=== PATIENT | male | born 1945 | race Caucasian/White ===

== ENCOUNTER 2019-06-13 13:04 | Observation (INO) | payer OTHER, SELFPAY ==
[2019-06-13] VITALS (13 sets, daily range): BP systolic 137–143; BP diastolic 68–74; PULSE 78–102; RESP 20–28; TEMP 36.6–37.1; O2SAT 73–96; BMI 31.1
--- NOTE | ~2019-06-13 | XR_ITS ---
EXAMINATION: XR chest 1V portable EXAM DATE: 06/13/2019 13:42 INDICATION: Dyspnea. TECHNIQUE: Portable AP frontal chest x-ray was obtained. Comparison is made to prior examination from 04/15/2019. FINDINGS: The lungs are clear. There are no pleural effusions. The cardiomediastinal silhouette is within normal limits. There is no pneumothorax suspected. The bones and soft tissues are unremarkab le. There is no significant interval change. IMPRESSION: No acute cardiopulmonary findings. Reviewed, dictated and finalized at location A. EDICAL PHOTOGRAPHER
--- NOTE | 2019-06-13 13:16 | ECG_ITS ---
Measurements Intervals [place] Rate: 93 P: 75 [place]: 152 QRS: -25 QRSD: 101 T: 55 QT: 337 QTc: 421 Interpretive Statements SINUS RHYTHM DELAYED PRECORDIAL R/S TRANSITION BASELINE WANDER- V4-V5 BORDERLINE ECG Electronically Signed On 06-13-2019 16:58:44 PAID SEARCH MARKETING STRATEGIST by Juan Donald D.O.
[2019-06-13] MEDS: IPRATROPIUM 0.5 MG/ALBUTEROL SULFATE 2.5 MG AMPUL.NEB 3 ML (13:26)
[2019-06-13] MEDS: methylPREDNISolone SOD SUCC 125 MG VIAL IV PUSH (13:38)
[2019-06-13 13:48] LABS: Device NASAL CANNULA; Modified Allen's Test Pass; Site Drawn RIGHT RADIAL
[2019-06-13 13:51] LABS: Basophils Absolute Auto 0.04 K/mm3 (0.00-0.10); Basophils Percent Auto 0.3 % (0.0-1.0); Eosinophils Absolute Auto 0.02 K/mm3 (0.02-0.50); Eosinophils Percent Auto 0.2 % (1.0-6.0); Hematocrit 41.4 % (37.0-46.0); Hemoglobin 12.4 g/dL (12.4-15.3); Immature Granulocyte Absolute 0.11 K/mm3 (0.00-0.00); Immature Granulocyte Percent A 0.8 % (0.0-0.0); Lymphocytes Absolute Auto 0.72 K/mm3 (1.10-4.50); Lymphocytes Percent Auto 5.5 % (18.0-42.0); Mean Corpuscular Hemoglobin 29.5 pg (27.0-31.0); Mean Corpuscular Volume 98.3 fL (78.0-102.0); Mean Platelet Volume 9.7 fl (8.7-11.0); Monocytes Percent Auto 3.8 % (2.0-11.0); Neutrophils Absolute Auto 11.6 K/mm3 (1.7-7.2); Neutrophils Percent Auto 89.4 % (50.0-70.0); Platelet Count Result 295 K/mm3 (150-420); Red Blood Count 4.21 M/mm3 (4.70-6.10); Red Cell Distribution Width 13.5 % (11.6-14.4)
[2019-06-13 14:06] LABS: D Dimer 0.35 mg/L (0.19-0.50); INR 1.1; Partial Thromboplastin Time 28.7 SEC (22.3-31.6); Prothrombin Time 10.9 Seconds (9.64-11.0)
[2019-06-13 14:07] LABS: Alanine Aminotransferase 15 U/L (16-63); Albumin Level 3.2 g/dL (3.4-5.0); Alkaline Phosphatase 86 U/L (46-116); Anion Gap 8.6 mmol/L (7-16); Aspartate Amino Transferase 13 U/L (15-37); Bilirubin,Total 0.4 mg/dL (0.00-1.00); Blood Urea Nitrogen 25 mg/dL (7-18); Calcium 9.8 mg/dL (8.5-10.1); Carbon Dioxide 39 mmol/L (21-32); Chloride 99 mmol/L (98-108); Estimated Glomerular Filt Rate 49; Glucose 226 mg/dL (70-99); Magnesium 1.4 mg/dL (1.8-2.4); Osmolality Calculated 305 mOsm/kg (285-295); Potassium 4.6 mmol/L (3.5-5.1); Sodium 142 mmol/L (136-145); Total Protein 7.6 g/dL (6.4-8.2); Troponin I < 0.02 ng/mL (0.00-0.056)
[2019-06-13 14:12] LABS: BNP 96 pg/mL (0-100)
[2019-06-13 14:21] LABS: Influenza Control Valid (Valid)
[2019-06-13] MEDS: IPRATROPIUM 0.5 MG/ALBUTEROL SULFATE 2.5 MG AMPUL.NEB 3 ML INHALATION ×2 (14:30→17:55)
--- NOTE | 2019-06-13 14:32 | ED.SOB ---
HPI - SOB/Dyspnea General Chief Complaint: Shortness of Breath/Dyspnea Stated Complaint: sob Source: patient and family Limitations: no limitations and physical limitation History of Present Illness HPI Narrative: 73-year-old patient presents with cough congestion shortness of breath as has a known history of COPD recent COPD exacerbation was hospitalized at [place] in early April. Continues to be a smoker although he says he has cut down, over the last couple of days has been getting increasingly short of breath and today having trouble walking any short distances without being short of breath. Has a cough that is nonproductive with audible wheezing currently no fever or chills no chest tightness no abdominal pain no nausea vomiting. MD elicited complaint: shortness of breath and cough Pertinent past history: COPD Onset (ago): day(s) Context: recent illness and anxiety Timing: progressively worsening Severity: moderate Exacerbating factors: exertion Relieving factors: oxygen and bronchodilators Known history of: COPD Associated symptoms: cough and wheezing Related Data Home Medications Medication Instructions Recorded Confirmed albuterol sulfate 0.63 mg INHALATION Q4H PRN 04/10/19 06/13/19 aspirin [Aspirin Low Dose] 81 mg PO DAILY 04/10/19 06/13/19 buspirone 15 mg PO BID 04/10/19 06/13/19 cholecalciferol (vitamin D3) 1,000 unit PO DAILY 04/10/19 06/13/19 gabapentin 100 mg PO TID 04/10/19 06/13/19 insulin aspart U-100 [Novolog 30 unit SUBCUT DAILY 04/10/19 06/13/19 Flexpen U-100 Insulin] magnesium oxide 400 mg PO BID 04/10/19 06/13/19 metoprolol tartrate 25 mg PO BID 04/10/19 06/13/19 montelukast 10 mg PO DAILY 04/10/19 06/13/19 simvastatin 10 mg PO HS 04/10/19 06/13/19 theophylline 400 mg PO DAILY 04/10/19 06/13/19 verapamil 360 mg PO DAILY 04/10/19 06/13/19 escitalopram oxalate [Lexapro] 20 mg PO DAILY 04/14/19 06/13/19 Allergies Allergy/AdvReac Type Severity Reaction Status Date / Time No Known Allergies Allergy Unverified 06/02/16 00:54 Review of Systems Review of Systems: All systems reviewed & are unremarkable except as noted in HPI and below PMFSH Past Medical History Medical History COPD (chronic obstructive pulmonary disease) Diabetes mellitus Diastolic heart failure Hypertension Surgical History Surgical History Clavicle fracture Family History Family History Mother Liver cancer Father Empyema Social History Social History Smoking packs per day: 0.5 Smoking cigarettes per day: 10.0 Years smoked: 60 Smoking pack-years: 30.00 Smoking status: Current every day smoker Tobacco type: cigarettes Alcohol intake: current Drinks per week: 1 Substance use: never Last use: RARE ON ALCOHOL INTAKE @ 1 MONTH Gender identity (if verbalized by the patient): Male Spiritual care concerns: No Agree to blood products: Yes Exam Const: General: no acute distress HENMT: Head: normal to inspection Eyes: Conjunctivae: conjunctivae normal Pupils: Equal, round and reactive pupils present Neck: Neck: normal visual inspection and no lymphadenopathy Chest: Chest palpation & inspection: normal inspection of the chest Resp: Effort & Inspection: tachypneic Auscultation: rhonchi, wheezes and diminished lung sounds Cardio: Rate: regular rate Rhythm: regular rhythm GI: GI Palp: Yes Soft to palpation Percussion: Yes normal to percussion : Testes: Testes normal Back/Spine/Pelvis: Back: no CVA tenderness Skin: General skin exam: normal color Rashes: no rashes Neuro: General: patient oriented x3, moves all extremities, no meningeal signs and no focal motor deficits Course Vital Signs Vital signs: Vital Signs Pulse Rate 94 06/13/19 13:25
[2019-06-13 14:47] LABS: Base Excess ABG 10.1 mEq/l (+/-2.0); HCO3 ABG 38.9 mEq/l (22.0-26.0); Oxygen Saturation ABG 91.4 % (95.0-100.0); Oxyhemoglobin 90.4 % THb (90.0-100.0); PO2 ABG 70.2 mmHg (80.0-100.0); Total Hemoglobin 10.2 g/dL (12.0-18.0)
[2019-06-13 14:50] LABS: PCO2 ABG 80.8 mmHg (35.0-45.0)
--- NOTE | 2019-06-13 16:45 | PC.NURSE ---
1520 lungs are diminished and have wheezes through out. here from er with c/o sob. claims he smokes daily at least 4+cigarettes daily and over 50+ yr history and has no intentions of quitting now. uses o2 at home.
[2019-06-13] MEDS: METOPROLOL TARTRATE 25 MG TABLET PO (17:18)
[2019-06-13] MEDS: MAGNESIUM OXIDE 400 MG TABLET PO (17:18)
[2019-06-13] MEDS: GABAPENTIN 100 MG CAPSULE PO (17:18)
[2019-06-13] MEDS: busPIRone HCL 5 MG TABLET 15 MG PO (17:18)
[2019-06-13] MEDS: methylPREDNISolone SOD SUCC 40 MG VIAL IV PUSH ×2 (17:55→20:28)
[2019-06-13] MEDS: SIMVASTATIN 10 MG TABLET PO (20:28)
[2019-06-13 20:40] LABS: Glucose Point of Care 240 (65-105)
[2019-06-14] VITALS (9 sets, daily range): BP systolic 132–138; BP diastolic 67–71; PULSE 80–96; RESP 18–24; TEMP 36.2–36.7; O2SAT 87–93
[2019-06-14] MEDS: IPRATROPIUM 0.5 MG/ALBUTEROL SULFATE 2.5 MG AMPUL.NEB 3 ML INHALATION ×2 (00:44→05:41)
[2019-06-14 08:27] LABS: Basophils Absolute Auto 0.01 K/mm3 (0.00-0.10); Basophils Percent Auto 0.1 % (0.0-1.0); Hematocrit 41.4 % (37.0-46.0); Hemoglobin 12.4 g/dL (12.4-15.3); Lymphocytes Absolute Auto 0.45 K/mm3 (1.10-4.50); Lymphocytes Percent Auto 4.7 % (18.0-42.0); Mean Corpuscular Volume 96.7 fL (78.0-102.0); Mean Platelet Volume 9.5 fl (8.7-11.0); Monocytes Percent Auto 2.1 % (2.0-11.0); Neutrophils Absolute Auto 8.9 K/mm3 (1.7-7.2); Neutrophils Percent Auto 92.1 % (50.0-70.0); Platelet Count Result 302 K/mm3 (150-420); Red Blood Count 4.28 M/mm3 (4.70-6.10); Red Cell Distribution Width 13.5 % (11.6-14.4); White Blood Count 9.7 K/mm3 (4.8-10.8)
[2019-06-14 08:44] LABS: Alanine Aminotransferase 14 U/L (16-63); Albumin Level 3.3 g/dL (3.4-5.0); Alkaline Phosphatase 79 U/L (46-116); Anion Gap 6.5 mmol/L (7-16); Aspartate Amino Transferase 12 U/L (15-37); Bilirubin,Total 0.3 mg/dL (0.00-1.00); Blood Urea Nitrogen 27 mg/dL (7-18); Calcium 9.8 mg/dL (8.5-10.1); Carbon Dioxide 41 mmol/L (21-32); Chloride 99 mmol/L (98-108); Estimated CRCL calculation 57 ml/min; Estimated Glomerular Filt Rate 60; Glucose 179 mg/dL (70-99); Osmolality Calculated 303 mOsm/kg (285-295); Potassium 4.5 mmol/L (3.5-5.1); Sodium 142 mmol/L (136-145); Total Protein 7.6 g/dL (6.4-8.2)
[2019-06-14 08:51] LABS: Glucose Point of Care 167 (65-105)
[2019-06-14 08:52] LABS: Glucose Point of Care 164 (65-105)
[2019-06-14] MEDS: methylPREDNISolone SOD SUCC 40 MG VIAL IV PUSH (08:56)
[2019-06-14] MEDS: MAGNESIUM OXIDE 400 MG TABLET PO (08:56)
[2019-06-14] MEDS: GABAPENTIN 100 MG CAPSULE PO (08:56)
[2019-06-14] MEDS: MONTELUKAST SODIUM 10 MG TABLET PO (08:57)
[2019-06-14] MEDS: ESCITALOPRAM OXALATE 10 MG TABLET 20 MG PO (08:57)
[2019-06-14] MEDS: VERAPAMIL HCL 180 MG TABLET ER 360 MG PO (08:57)
[2019-06-14] MEDS: METOPROLOL TARTRATE 25 MG TABLET PO (08:58)
[2019-06-14] MEDS: CHOLECALCIFEROL 1,000 UNIT TABLET 1000 UNITS PO (08:58)
[2019-06-14] MEDS: busPIRone HCL 5 MG TABLET 15 MG PO (08:58)
[2019-06-14] MEDS: ASPIRIN 81 MG ENTERIC TABLET PO (08:58)
--- NOTE | 2019-06-14 10:22 | PC.NURSE ---
Telemetry discontinued. IV discontinued. Patient getting dressed, awaiting discharge. Independent in room
--- NOTE | 2019-06-14 12:05 | PM.IMHP ---
H&P: HPI History of Present Illness Chief complaint: sob <UBALDO Antunez - Last Filed: 06/14/19 12:22> Narrative: Mike Dumont is a 73 year old male who presented to the ED with shortness of breath, dyspnea, congestion . Patient has a past medical history of COPD diabetes heart, failure diastolic , and tobacco abuse he also uses continuous home oxygen. He is being admitted for COPD exacerbation. according to patient he has been experiencing a persistent nonproductive cough with wheezing that has not improved with his nebulizer treatment for a couple of days. He says his shortness of breath worsens with activity. His vital signs are 36.5, 96, 24, 93% L nasal cannula, 132/70 . while in the ED a chest x-ray was completed and found unremarkable, blood cultures are pending, EKG normal sinus rhythm. Patient will be discharged home today because his condition has improved with steroids ,antibiotics and his breathing treatments will continue. Patient able to tolerate all meals , slept well and ambulate at baseline. Patient denies SOB, CP, palpitation, extremity numbness, lightheadness, dizziness, constipation, diarrhea, or chills or fever. Patient agree that they are ready for discharge and discharge plan. <UBALDO Antunez - Last Filed: 06/14/19 12:22> Review of Systems Constitutional: Constitutional: Denies difficulty sleeping, Denies fatigue, Denies fever(s) and Denies headache(s) <UBALDO Antunez - Last Filed: 06/14/19 12:22> ENT: Denies dysphagia, Denies vertigo, Denies dizziness and Denies headache(s) <UBALDO Antunez - Last Filed: 06/14/19 12:22> Cardiovascular: Cardiovascular: Reports no additional cardiovascular complaints, Denies chest pain at rest and Denies chest pain with activity <UBALDO Antunez - Last Filed: 06/14/19 12:22> Gastrointestinal: Gastrointestinal: Reports no additional gastrointestinal complaints <UBALDO Antunez - Last Filed: 06/14/19 12:22> Musculoskeletal: Musculoskeletal: Reports no additional musculoskeletal complaints <UBALDO Antunez - Last Filed: 06/14/19 12:22> Neurologic: Denies Abnormal speech present, Denies confusion, Denies vertigo, Denies dizziness and Denies syncope <UBALDO Antunez - Last Filed: 06/14/19 12:22> [facility] Past Medical History Medical History: Medical History (Updated 06/14/19 @ 12:15 by UBALDO Antunez) COPD (chronic obstructive pulmonary disease) Diabetes mellitus Diastolic heart failure Hypertension Tobacco dependence <UBALDO Antunez - Last Filed: 06/14/19 12:22> Surgical History Surgical History: Surgical History Clavicle fracture <UBALDO Antunez - Last Filed: 06/14/19 12:22> Family History Family History: Family History Mother Liver cancer Father Empyema <UBALDO Antunez - Last Filed: 06/14/19 12:22> Social History Social History: Social History Smoking packs per day: 1 Smoking cigarettes per day: 20.0 Years smoked: 50 Smoking pack-years: 50.00 Smoking status: Current every day smoker Tobacco type: cigarettes Second hand tobacco smoke exposure: Yes Alcohol intake: current Drinks per week: 1 Substance use: never Last use: RARE ON ALCOHOL INTAKE @ 1 MONTH Gender identity (if verbalized by the patient): Male Spiritual care concerns: No Agree to blood products: No <UBALDO Antunez - Last Filed: 06/14/19 12:22> Meds Home Medications and Allergies Home medications: Home Medications Medication Instructions Recorded Confirmed Type albuterol sulfate 0.63 mg INHALATION Q4H PRN 04/10/19 06/13/19 History aspirin [Aspirin Low Dose] 81 mg PO DAILY 04/10/19 06/13/19 History buspirone 15 mg PO BID 04/10/19
--- NOTE | 2019-06-14 12:22 | PM.DS ---
DS: Diagnosis Discharge Diagnosis (1) Diabetes mellitus: Qualifiers: Diabetes mellitus complication status: with hyperglycemia Diabetes mellitus chcf insulin use: with chcf use Diabetes mellitus type: type 2 Qualified Code(s): E11.65 - Type 2 diabetes mellitus with hyperglycemia; Z79.4 - intermediate (current) use of insulin <UBALDO Antunez - Last Filed: 06/14/19 12:23> Code(s): E11.9 - Type 2 diabetes mellitus without complications <UBALDO Antunez - Last Filed: 06/14/19 12:23> Status: Acute <UBALDO Antunez - Last Filed: 06/14/19 12:23> Assessment and Plan: - blood sugars less than 300, controlled - continue home insulin <UBALDO Antunez - Last Filed: 06/14/19 12:23> (2) Diastolic heart failure: Qualifiers: Heart failure chronicity: chronic Qualified Code(s): I50.32 - Chronic diastolic (congestive) heart failure <UBALDO Antunez - Last Filed: 06/14/19 12:23> Code(s): I50.30 - Unspecified diastolic (congestive) heart failure <UBALDO Antunez - Last Filed: 06/14/19 12:23> Status: Acute <UBALDO Antunez - Last Filed: 06/14/19 12:23> Assessment and Plan: - compensated - BNP within normal limits - patient will follow-up with PCP <UBALDO Antunez - Last Filed: 06/14/19 12:23> (3) COPD exacerbation: Code(s): J44.1 - Chronic obstructive pulmonary disease with (acute) exacerbation <UBALDO Antunez - Last Filed: 06/14/19 12:23> Status: Acute <UBALDO Antunez - Last Filed: 06/14/19 12:23> Assessment and Plan: stable continue supplement oxygen - patient educated on smoking cessation - patient will discharge home with steroids, antibiotics and continue his nebulizer treatments at home <UBALDO Antunez - Last Filed: 06/14/19 12:23> (4) Hypertension: Qualifiers: Hypertension type: essential hypertension Qualified Code(s): I10 - Essential (primary) hypertension <JOHN AntunezVelia - Last Filed: 06/14/19 12:23> Code(s): I10 - Essential (primary) hypertension <Xavi Blackburn JOHNVelia - Last Filed: 06/14/19 12:23> Status: Acute <UBALDO Antunez - Last Filed: 06/14/19 12:23> Assessment and Plan: blood pressure 132/71 stable on discharge - continue home antihypertensive tension medication - follow-up with PCP <Xavi Brand Alexey JAKETyra - Last Filed: 06/14/19 12:23> (5) Tobacco dependence: Code(s): F17.200 - Nicotine dependence, unspecified, uncomplicated <Xavi Blackburn UBALDO - Last Filed: 06/14/19 12:23> Status: Acute <UBALDO Antunez - Last Filed: 06/14/19 12:23> Assessment and Plan: patient educated on smoking cessation - encourage should use the nicotine patches at home <Xavi Blackburn MEDICAL DEVICE-C - Last Filed: 06/14/19 12:23> DS: Summary Hospital Course Hospital Course: Mike Dumont is a 73 year old male who presented to the ED with shortness of breath, dyspnea, congestion . Patient has a past medical history of COPD diabetes heart, failure diastolic , and tobacco abuse he also uses continuous home oxygen. He is being admitted for COPD exacerbation. according to patient he has been experiencing a persistent nonproductive cough with wheezing that has not improved with his nebulizer treatment for a couple of days. He says his shortness of breath worsens with activity. His vital signs are 36.5, 96, 24, 93% L nasal cannula, 132/70 . while in the ED a chest x-ray was completed and found unremarkable, blood cultures are pending, EKG normal sinus rhythm. Patient will be discharged home today because his condition has improved with steroids ,antibiotics and his breathing treatments will continue. Patient able to tolerate all meals , slept well and ambulate at baseline. Patient
--- NOTE | 2019-06-15 08:41 | PCCCNOTE ---
Spoke with Quentin Rain at 0841 regarding patient's discharge on 06/14/2019. No additional information needed
== END 2019-06-14 11:30 | disposition home or self-care (01) ==
LOC: CHSED 14:38 → CHS2ND 14:52
PROVIDERS: Admitting Provider Emergency Medicine; Emergency Provider Emergency Medicine; PCP Internal Medicine; Visit Provider Emergency Medicine
DX: J44.1 Chronic obstructive pulmonary disease with (acute) exacerbation (principal); I11.0 Hypertensive heart disease with heart failure; I50.32 Chronic diastolic (congestive) heart failure; E11.65 Type 2 diabetes mellitus with hyperglycemia; F17.210 Nicotine dependence, cigarettes, uncomplicated; Z99.81 Dependence on supplemental oxygen
CPT/HCPCS: 36415; 36600; 71045; 80053; 82805; 83735; 83880; 84484; 85025; 85380; 85610; 85730; 87040; 87804; 93005; 94640; 96365; 96374; 96375; 96376; 99285; A9270; G0378; J0696; J1815; J2920; J2930

== ENCOUNTER 2019-07-14 22:24 | Inpatient (IN) | payer OTHER, SELFPAY ==
[2019-07-14] VITALS (8 sets, daily range): BP systolic 146; BP diastolic 65; PULSE 81–120; RESP 26–32; TEMP 37.1; O2SAT 80–90
--- NOTE | ~2019-07-14 | XR_ITS ---
EXAMINATION: XR chest 1V portable EXAM DATE: 07/14/2019 23:30 INDICATION: Dyspnea. TECHNIQUE: Portable AP frontal chest x-ray was obtained. Comparison is made to prior examination from 06/13/2019. FINDINGS: Interval development of moderate amount of left-sided and right basilar indistinct reticula tion, airspace disease, probably pneumonia and/or edema. Borderline heart size. No pneumothorax or si zable pleural effusion. There are mild bony degenerative changes. IMPRESSION: Development of moderate left greater than right edema and/or pneumonia. Reviewed, dictated and finalized at location A. IREMENTS ENGINEER IMPRESSION: Development of moderate left greater than right edema and/or pneumo naida.
--- NOTE | ~2019-07-14 | XR_ITS ---
XR chest ET placement 07/15/2019 08:41 Indication: Endotracheal tube placement. Procedure: AP portable chest Comparison: Comparison to multiple prior studies sequentially, with oldest reviewed study dated 10/2018. Findings: Cardiomegaly. Improving bilateral airspace disease. There is a layering left pleural effusi on. Endotracheal tube tip 4.8 cm above the acosta. Right clavicle distally is not identified, likely surgically absent. There are surgical changes overlying the right shoulder. Impression: 1: Improving bilateral airspace disease, left greater than right, most likely edema versus pneumonia. 2: Small left effusion. Reviewed, dictated and finalized at location A. OPEDIC PODIATRIST Impression: 1: Improving bilateral airspace disease, left greater than right, most likely e rochelle versus pneumonia. 2: Small left effusion.
--- NOTE | 2019-07-14 22:37 | ECG_ITS ---
Measurements Intervals [place] Rate: 115 P: 63 ID: [id number] QRS: -32 QRSD: 113 T: 85 QT: 316 QTc: 438 Interpretive Statements SINUS TACHYCARDIA LEFT AXIS DEVIATION INTRAVENTRICULAR CONDUCTION DELAY LEFT VENTRICULAR HYPERTROPHY AND ST-T CHANGE BORDERLINE R WAVE PROGRESSION, ANTERIOR LEADS ABNORMAL ECG Electronically Signed On 07-15-2019 7:35:12 PRODUCTION PAINTER by Juan Donald D.O.
[2019-07-14] MEDS: methylPREDNISolone SOD SUCC 125 MG VIAL IV PUSH (22:43)
[2019-07-14] MEDS: ALBUTEROL SULFATE NEB 1.25 MG/3 ML INH INHALATION ×2 (22:43→23:41)
[2019-07-14 23:29] LABS: Base Excess ABG 9.9 mmol/L (0-2); HCO3 ABG 40.3 mmol/L (23-29); Oxygen Content ABG 17.5 %vol (16.0-22.0); Oxygen Saturation ABG 97.7 % (95-97); Oxyhemoglobin 91.5 % (94-100); PCO2 ABG 50.1 mmHg (35-45); PO2 ABG 103.3 mmHg (75-85); Total Hemoglobin 13.5 g/dL; pH ABG 7.28 (7.35-7.45)
[2019-07-14] MEDS: IPRATROPIUM 0.5 MG/ALBUTEROL SULFATE 2.5 MG AMPUL.NEB 3 ML INHALATION (23:29)
[2019-07-14 23:30] LABS: Device NASAL CANNULA; Modified Allen's Test Pass; Site Drawn LEFT RADIAL
[2019-07-14 23:37] LABS: Basophils Absolute Auto 0.05 K/mm3 (0.00-0.10); Basophils Percent Auto 0.3 % (0.0-1.0); Eosinophils Absolute Auto 0.08 K/mm3 (0.02-0.50); Eosinophils Percent Auto 0.4 % (1.0-6.0); Hematocrit 42.3 % (37.0-46.0); Hemoglobin 12.7 g/dL (12.4-15.3); Immature Granulocyte Absolute 0.27 K/mm3 (0.00-0.00); Immature Granulocyte Percent A 1.5 % (0.0-0.0); Lymphocytes Absolute Auto 1.55 K/mm3 (1.10-4.50); Lymphocytes Percent Auto 8.4 % (18.0-42.0); Mean Corpuscular Hemoglobin 28.7 pg (27.0-31.0); Mean Corpuscular Volume 95.5 fL (78.0-102.0); Mean Platelet Volume 10.2 fl (8.7-11.0); Monocytes Percent Auto 9.2 % (2.0-11.0); Neutrophils Absolute Auto 14.8 K/mm3 (1.7-7.2); Neutrophils Percent Auto 80.2 % (50.0-70.0); Platelet Count Result 370 K/mm3 (150-420); Red Blood Count 4.43 M/mm3 (4.70-6.10); Red Cell Distribution Width 13.9 % (11.6-14.4); White Blood Count 18.5 K/mm3 (4.8-10.8)
[2019-07-14 23:52] LABS: Alanine Aminotransferase 24 U/L (16-63); Albumin Level 2.9 g/dL (3.4-5.0); Alkaline Phosphatase 107 U/L (46-116); Anion Gap 6.8 mmol/L (7-16); Aspartate Amino Transferase 132 U/L (15-37); Bilirubin,Total 0.6 mg/dL (0.00-1.00); Blood Urea Nitrogen 25 mg/dL (7-18); Carbon Dioxide 38 mmol/L (21-32); Chloride 98 mmol/L (98-108); Estimated CRCL calculation 37 ml/min; Estimated Glomerular Filt Rate 41; Glucose 137 mg/dL (70-99); Magnesium 1.2 mg/dL (1.8-2.4); Osmolality Calculated 294 mOsm/kg (285-295); Potassium 3.8 mmol/L (3.5-5.1); Sodium 139 mmol/L (136-145); Total Protein 7.3 g/dL (6.4-8.2)
[2019-07-15] VITALS (14 sets, daily range): BP systolic 104–153; BP diastolic 51–83; PULSE 84–114; RESP 0–28; TEMP 35.6–36.1; O2SAT 70–99; BMI 30.3
[2019-07-15 00:01] LABS: Influenza Control Valid (Valid)
--- NOTE | 2019-07-15 00:03 | ED.SOB ---
HPI - SOB/Dyspnea General Chief Complaint: Shortness of Breath/Dyspnea Stated Complaint: ambulance Source: patient Mode of arrival: EMS Limitations: no limitations History of Present Illness HPI Narrative: This is a 73-year-old male with a history of COPD and tobacco abuse brought in by EMS to the emergency department with increasing shortness of breath cough that is productive of yellow to brown sputum with some chest congestion with shortness of breath this started approximately 4 days ago and has worsened over the last 24 hours. The patient is a smoker has recently been discharged from the hospital approximately 1 month ago for COPD exacerbation was discharged home and patient continued to smoke and up till recent illness and decreased his tobacco use to about 3 to 4 cigarettes over the last couple of days. Patient has a history of CHF with diastolic dysfunction, also diabetes type 2 with hypertension. Currently there is no fever or chills no abdominal pain no chest pain no diarrhea constipation no nausea or vomiting. MD elicited complaint: shortness of breath and cough Pertinent past history: COPD and congestive heart failure Onset (ago): day(s) Context: recent illness Severity: moderate Exacerbating factors: exertion Known history of: COPD, congestive heart failure and diabetes Associated symptoms: cough, wheezing and sputum production Related Data Home Medications Medication Instructions Recorded Confirmed albuterol sulfate 0.63 mg INHALATION Q4H PRN 04/10/19 07/14/19 aspirin [Aspirin Low Dose] 81 mg PO DAILY 04/10/19 07/14/19 buspirone 15 mg PO BID 04/10/19 07/14/19 cholecalciferol (vitamin D3) 1,000 unit PO DAILY 04/10/19 07/14/19 gabapentin 100 mg PO TID 04/10/19 07/14/19 insulin aspart U-100 [Novolog 30 unit SUBCUT DAILY 04/10/19 07/14/19 Flexpen U-100 Insulin] magnesium oxide 400 mg PO BID 04/10/19 07/14/19 metoprolol tartrate 25 mg PO BID 04/10/19 07/14/19 montelukast 10 mg PO DAILY 04/10/19 07/14/19 simvastatin 10 mg PO HS 04/10/19 07/14/19 theophylline 400 mg PO DAILY 04/10/19 07/14/19 verapamil 180 mg PO DAILY 04/10/19 07/14/19 Allergies Allergy/AdvReac Type Severity Reaction Status Date / Time No Known Allergies Allergy Unverified 06/02/16 00:54 Review of Systems Review of Systems: All systems reviewed & are unremarkable except as noted in HPI and below PMFSH Past Medical History Medical History COPD (chronic obstructive pulmonary disease) Diabetes mellitus Diastolic heart failure Hypertension Tobacco dependence Surgical History Surgical History Clavicle fracture Social History Social History Smoking packs per day: 1 Smoking cigarettes per day: 20.0 Years smoked: 50 Smoking pack-years: 50.00 Smoking status: Current every day smoker Tobacco type: cigarettes Second hand tobacco smoke exposure: Yes Alcohol intake: current Drinks per week: 1 Substance use: never Last use: RARE ON ALCOHOL INTAKE @ 1 MONTH Gender identity (if verbalized by the patient): Male Spiritual care concerns: No Agree to blood products: No Exam Const: General: no acute distress and alert Orientation/consciousness: patient oriented x3 HENMT: Head: normal to inspection Eyes: Conjunctivae: conjunctivae normal Pupils: Equal, round and reactive pupils present Neck: Neck: normal visual inspection Chest: Chest palpation & inspection: normal inspection of the chest Resp: Auscultation: wheezes and diminished lung sounds Cardio: Rate: regular rate and tachycardic GI: GI Palp: Yes Soft to palpation Percussion: Yes normal to percussion : Testes: Testes normal Urinary Catheter: Urinary Catheter: patent and draining Back/Spine/Pelvis: Back: no CVA tenderness Neuro: General: patient oriented x3, no meningeal signs
[2019-07-15 00:12] LABS: Lactic Acid 4.6 mmol/L (0.4-2.0)
[2019-07-15 00:13] LABS: BNP 192 pg/mL (0-100)
--- NOTE | 2019-07-15 00:33 | PC.NURSE ---
0010 Report given to Evelyn for admit tele, IV antibiotic Azithromycin continues to infuse, pt. resting more comfortable at this time.
--- NOTE | 2019-07-15 00:50 | PC.NURSE ---
Patient switched from non-rebreather mask to BiPap machine per RT. IV Azithromycin infusing to site in right wrist without difficulty. Patient gets SOB answering questions.
--- NOTE | 2019-07-15 01:05 | PC.NURSE ---
Nahed DUKE called ERP ,spoke to ED RN, to advise him that pt's O2 sats are in the 70's on the bipap machine, she switched the pt back to NRB and pt's sats are 89%, doctor will call back
--- NOTE | 2019-07-15 01:10 | PC.NURSE ---
ED RN returned call and reported Dr Whitley gave orders to put him on whatever device makes him more comfortable, no other orders given, reported to rn that we will call back if sats do not rise.
--- NOTE | 2019-07-15 01:10 | PC.NURSE ---
Patient's SpO2 is 96-98% on non-rebreather mask @ 15 lpm. Patient takes the mask off frequently and has to be reminded to leave it on. Patient tolerating the non-rebreather mask better than the BiPap. IV Azithromycin infusing without difficulty to site in right wrist. Call light and urinal within reach and shown to patient prior to nurse leaving the room.
[2019-07-15] MEDS: SODIUM CHLORIDE 0.9% IV 1,000 ML 999 ML IV CONT (01:33)
--- NOTE | 2019-07-15 01:49 | ADMGEN ---
Addendum entered by Evelyn Ayala RN 07/15/19 03:07: Admission noted was for 0045 Original Note: This patient, Mike Dumont, was admitted to 2nd Floor Room 205-2. Patient oriented to hospital policies and general routines including ID bracelet, bed and alarms, visiting hours, pain management, procedures, bathroom and other care routines, personal items, smoking policy, room service/diet, and visiting hours. Valuables list has been completed. Information on how to activate the Rapid Response Team has been discussed. Patient are encouraged to report perceived risks to care and to ask questions if they do not understand what they are told or what they should do.
--- NOTE | 2019-07-15 02:10 | PC.NURSE ---
Patient's SpO2 @ 96% on non-rebreather mask @ 15 lpm. Patient no longer SOB but keeps putting the mask up on his forehead or over on his cheek. IV med infusing to site in right wrist without difficulty. Call light in reach.
[2019-07-15] MEDS: MAGNESIUM SULF 4 GM/WATER100ML 4 GM/100 ML BAG IVPB (02:51)
--- NOTE | 2019-07-15 03:00 | PC.NURSE ---
Patient had urine all over the floor and bed linen is wet. Patient said he was unable to find his button for the nurse. Nurse showed patient that the light is right next to him where he wanted it put. Patient also had his O2 mask off and his SpO2 sensor off. Bed changed with incontinence care provided. Patient tolerated well. Asked patient if there was a better place where he could reach his call light and he placed it next to him in the same place it had been earlier. Nurse also showed patient the urinal on the table next to the bed.
--- NOTE | 2019-07-15 03:20 | PC.NURSE ---
Nurse entered room and patient was trying to push on back of call light to get nurse. Showed patient once again how to use call light. Patient needed to urinate and said he needed help with the urinal. Nurse assisted patient with placement. Patient urinated 300ml clear yellow urine. Call light in reach.
--- NOTE | 2019-07-15 04:00 | PC.NURSE ---
Went in to pt room for iv alarm, pt had NRB mask pushed to the side of his face, O2 sat 86%, mask readjusted, pt reminded again to leave mask on, pt diaphoretic stated room is too hot, adjusted room temp and pt blankets to help him cool down.
--- NOTE | 2019-07-15 04:05 | PC.NURSE ---
Patient continuously taking his O2 mask off and needs it put back on. SpO2 ranges 94-98% with O2 @ 15 lpm per non-rebreather mask, but when patient takes it off he drops to mid 80's quickly. Saline lock to right wrist intact. Call light next to patient. Patient barely awakened while VS being taken.
--- NOTE | 2019-07-15 04:43 | PC.NURSE ---
Went in to pt room to find mask off of face, pulse ox reading 56%, pt blue around mouth, reapplied mask, called for assistance, pt quickly recovered to 80's then 90's, but continued to remove mask, called to ER and the tech came up and is sitting at bedside.
--- NOTE | 2019-07-15 05:01 | PCDIET ---
Dr Whitley called and report given of pt's oxygen sats. No new orders given at this time.
--- NOTE | 2019-07-15 05:20 | PC.NURSE ---
Med tech continues to sit @ patient's bedside and replaces NRB mask and reminds patient that he has to keep the mask on. SpO2 in mid 90's with O2 on per NRB mask @ 15 lpm. Saline lock intact to right wrist.
[2019-07-15] MEDS: IPRATROPIUM 0.5 MG/ALBUTEROL SULFATE 2.5 MG AMPUL.NEB 3 ML INHALATION (05:54)
--- NOTE | 2019-07-15 05:54 | PC.NURSE ---
Med tech still @ patient's bedside and replaces NRB mask and reminds patient that he has to keep the mask on. SpO2 in mid 90's with O2 on per NRB mask @ 15 lpm.
[2019-07-15 06:41] LABS: Glucose Point of Care 196 (65-105)
--- NOTE | 2019-07-15 06:45 | PC.NURSE ---
Patient unresponsive. 3 nurses and med tech trying to get patient to come around. Sternal rub done with no result. Rapid response called @ 0632. Lab, RT, Dr Whitley and nurses responded. Patient's VSS and blood tpwol=[id number]. As Dr Whitley entered room patient woke up and started talking, saying I'm here . O2 continues per NRB mask @ 15 lpm. Labs being drawn. RT going to try patient on BiPap again after breathing treatment finished.
[2019-07-15 06:50] LABS: Base Excess ABG 7.9 mmol/L (0-2); Device NON-REBREATHER MASK; HCO3 ABG 41.6 mmol/L (23-29); Modified Allen's Test Pass; Oxygen Content ABG 17.9 %vol (16.0-22.0); Oxygen Saturation ABG 97.9 % (95-97); Oxyhemoglobin 95.4 % (94-100); PCO2 ABG 127.1 mmHg (35-45); PO2 ABG 119.7 mmHg (75-85); Site Drawn LEFT RADIAL; Total Hemoglobin 13.2 g/dL; pH ABG 7.13 (7.35-7.45)
--- NOTE | 2019-07-15 06:52 | PC.NURSE ---
Nahed Culp updated on patient's condition.
--- NOTE | 2019-07-15 07:00 | PC.NURSE ---
Patient not able to maintain spo2. Respiratory trying bipap and non-rebreather to keep sats up.
[2019-07-15 07:19] LABS: Basophils Absolute Auto 0.03 K/mm3 (0.00-0.10); Basophils Percent Auto 0.2 % (0.0-1.0); Hematocrit 41.6 % (37.0-46.0); Hemoglobin 12.4 g/dL (12.4-15.3); Immature Granulocyte Absolute 0.26 K/mm3 (0.00-0.00); Immature Granulocyte Percent A 1.5 % (0.0-0.0); Lymphocytes Absolute Auto 0.36 K/mm3 (1.10-4.50); Lymphocytes Percent Auto 2.1 % (18.0-42.0); Mean Corpuscular HGB Conc 29.8 g/dL (32.0-36.0); Mean Corpuscular Hemoglobin 28.6 pg (27.0-31.0); Mean Corpuscular Volume 96.1 fL (78.0-102.0); Monocytes Absolute Auto 0.53 K/mm3 (0.10-0.90); Neutrophils Absolute Auto 16.2 K/mm3 (1.7-7.2); Neutrophils Percent Auto 93.2 % (50.0-70.0); Platelet Count Result 354 K/mm3 (150-420); Red Blood Count 4.33 M/mm3 (4.70-6.10); Red Cell Distribution Width 13.8 % (11.6-14.4); White Blood Count 17.4 K/mm3 (4.8-10.8)
[2019-07-15] MEDS: methylPREDNISolone SOD SUCC 40 MG VIAL 60 MG IV PUSH (07:28)
[2019-07-15] MEDS: THEOPHYLLINE ANHYDROUS 200 MG CAP.ER.24H 400 MG PO (07:29)
[2019-07-15] MEDS: MONTELUKAST SODIUM 10 MG TABLET PO (07:29)
--- NOTE | 2019-07-15 07:30 | PC.NURSE ---
Dr. Vegas notified. Doctor states patient needs to be intubated. Patient taken to ER trauma room #1. 0821 Versed 2mg given. 08 Succs 150mg given. 08 etomidate 27mg given. 08 patient intubated. 0847 versed 2mg given. Report called to [place] [facility] by sign writer hand. 0850 Magnesium 2Gm bag started, stopped 919. Couda felipe catheter placed. 921 Versed 2mg given. 932 [facility] transferred patient to [place] ICU room 2.
[2019-07-15 07:36] LABS: Alanine Aminotransferase 26 U/L (16-63); Albumin Level 2.8 g/dL (3.4-5.0); Alkaline Phosphatase 108 U/L (46-116); Anion Gap 5.2 mmol/L (7-16); Aspartate Amino Transferase 137 U/L (15-37); Bilirubin,Total 0.3 mg/dL (0.00-1.00); Blood Urea Nitrogen 25 mg/dL (7-18); Calcium 10.1 mg/dL (8.5-10.1); Carbon Dioxide 39 mmol/L (21-32); Chloride 99 mmol/L (98-108); Estimated CRCL calculation 49 ml/min; Estimated Glomerular Filt Rate 49; Glucose 205 mg/dL (70-99); Osmolality Calculated 298 mOsm/kg (285-295); Potassium 4.2 mmol/L (3.5-5.1); Sodium 139 mmol/L (136-145); Total Protein 7.5 g/dL (6.4-8.2)
[2019-07-15 07:37] LABS: Magnesium 2.5 mg/dL (1.8-2.4)
[2019-07-15 07:48] LABS: Glucose Point of Care 193 (65-105)
[2019-07-15 07:55] LABS: Base Excess ABG 8.8 mmol/L (0-2); Device NON-REBREATHER MASK; HCO3 ABG 41.3 mmol/L (23-29); Modified Allen's Test Pass; Oxygen Content ABG 17.2 %vol (16.0-22.0); Oxygen Saturation ABG 94.5 % (95-97); Oxyhemoglobin 92.3 % (94-100); PCO2 ABG 111.7 mmHg (35-45); PO2 ABG 77.9 mmHg (75-85); Site Drawn LEFT RADIAL; Total Hemoglobin 13.2 g/dL; pH ABG 7.19 (7.35-7.45)
[2019-07-15 08:53] LABS: Base Excess ABG 9.1 mmol/L (0-2); HCO3 ABG 39.6 mmol/L (23-29); Oxygen Content ABG 16.2 %vol (16.0-22.0); Oxygen Saturation ABG 91.9 % (95-97); Oxyhemoglobin 89.9 % (94-100); PCO2 ABG 90.4 mmHg (35-45); PO2 ABG 63.9 mmHg (75-85); Total Hemoglobin 12.8 g/dL; pH ABG 7.26 (7.35-7.45)
[2019-07-15 08:55] LABS: Device VENTILATOR; Modified Allen's Test Pass; Site Drawn LEFT RADIAL
[2019-07-15 09:09] LABS: Arterial Blood Gas Ventilator rate 80 /MIN
[2019-07-15 09:10] LABS: Arterial Blood Gas Minute Volume 10 LPM; Arterial Blood Gas PEEP 8 cmH2O; Arterial Blood Gas Pressure Support 33 cmH2O; Arterial Blood Gas Tidal Volume 550 ml; Arterial Blood Gas Vent Mode ASSIST CONTROL
[2019-07-15 09:14] LABS: Phosphorus 4.5 mg/dL (2.6-4.7)
== END 2019-07-15 09:35 | disposition other institution (70) | DRG 190 ==
LOC: CHSED 07-15 00:11 → CHS2ND 07-15 00:23
PROVIDERS: Nurse Practitioner; Surgery; Admitting Provider Emergency Medicine; Emergency Provider Emergency Medicine; PCP Internal Medicine; Visit Provider Emergency Medicine
DX: J44.0 Chronic obstructive pulmonary disease with (acute) lower respiratory infection (principal); J18.9 Pneumonia, unspecified organism; I50.30 Unspecified diastolic (congestive) heart failure; E87.2 Acidosis; R06.03 Acute respiratory distress; I11.0 Hypertensive heart disease with heart failure; E11.9 Type 2 diabetes mellitus without complications; E78.00 Pure hypercholesterolemia, unspecified; F17.200 Nicotine dependence, unspecified, uncomplicated
CPT/HCPCS: 36415; 36600; 71045; 80053; 82805; 83605; 83735; 83880; 84100; 85025; 87040; 87804; 93005; 94002; 94640; 94660; 96365; 96375; 99285; A9270; J0330; J0456; J0696; J2250; J2920; J2930; J3475; J7030

== ENCOUNTER 2019-07-15 18:04 | Inpatient (IN) | payer OTHER, SELFPAY ==
[2019-07-15] VITALS (19 sets, daily range): BP systolic 111–124; BP diastolic 65–80; PULSE 61–101; RESP 20; TEMP 36.1–36.5; O2SAT 92–100; BMI 32.5
--- NOTE | 2019-07-15 | ECHO_ITS ---
Patient Info Name: Mike Dumont Age: 73 years : 1945 Gender: Male Ht: 68 in Wt: 213 lbs BSA: 2.18 m2 HR: 88 bpm BP: 112 / 72 mmHg Heart Rhythm: Sinus Rhythm Technical Quality: Poor Exam Date: 07/15/2019 12:31 PM Exam Location: [facility] Patient Status: Inpatient Admit Date: 07/15/2019 Staff Ordering Physician: Abbey Geiger MD Process Improvement Specialist: Felicia Palomino RDCS Attending Provider: Sonal Pemberton MD Referring Physician: Fely FUENTES; Exam Type: CA echo dop color flow w con Study Info Complete two-dimensional, color flow and Doppler transthoracic echocardiogram is performed with contrast to opacify the left ventrical and to improve the deliniation of the left ventrical endocarial boarders. Contrast/Agitated Saline Contrast/Ag. Saline: Definity Amount: 2.00 ml Summary 1. Left ventricular systolic function is normal, estimated at 60-65%. 2. There is mildly increased left ventricular wall thickness. 3. The left ventricular diastolic function is grade I diastolic dysfunction. 4. Right ventricular chamber dimension is moderately enlarged. 5. Right atrial chamber dimension is mildly enlarged. 6. Technically difficult study with limited views. 7. There is no aortic valve stenosis. 8. There is mild aortic valve calcification. 9. There is trace mitral valve regurgitation. 10. The mitral valve has thickened leaflets. 11. The mitral valve annulus is severely calcified. 12. Unable to estimate PA systolic pressure due to poor spectral resolution of tricuspid regurgitant jet velocity. Left Ventricle Left ventricular chamber dimension is normal. Left ventricular systolic function is normal, estimated at 60-65%. There is mildly increased left ventricular wall thickness. The left ventricular diastolic function is grade I diastolic dysfunction. Technically difficult study with limited views. Right Ventricle Right ventricular chamber dimension is moderately enlarged. Right ventricular systolic function is normal. Left Atria Left atrial chamber dimension is normal. Right Atria Right atrial chamber dimension is mildly enlarged. Aortic Valve The aortic valve is not well visualized. There is no aortic valve stenosis. There is no aortic valve regurgitation. There is mild aortic valve calcification. Pulmonic Valve The pulmonic valve is not well visualized. Mitral Valve The mitral valve has thickened leaflets. There is trace mitral valve regurgitation. The mitral valve annulus is severely calcified. Tricuspid Valve The tricuspid valve leaflets are normal. Unable to estimate PA systolic pressure due to poor spectral resolution of tricuspid regurgitant jet velocity. Pericardium/Pleural The pericardium appears not well visualized. Aorta The aortic root size at the sinus of Valsalva is normal. Left Ventricular Outflow Tract Name Value Normal LVOT Doppler LVOT Peak Velocity 100.73 cm/s LVOT Peak Gradient 4 mmHg LVOT Mean Gradient 2 mmHg LVOT VTI 20.63 cm LVOT VTI/AV VTI Ratio 1.10 Pulmonic Valve
--- NOTE | ~2019-07-15 | XR_ITS ---
XR chest 1V portable DATE: 07/20/2019 06:17 INDICATION: Hypercapnic respiratory failure TECHNIQUE: Portable AP chest on 07/20/2019 at 0510 hours COMPARISON: 07/19/2019 portable AP chest FINDINGS: Interval removal of ET and NG tubes since 07/19/2019. Normal heart size. Mild infiltrate or atelectasis in the lower lung zones. The lungs otherwise appear clear. IMPRESSION: Removal of ET and NG tubes Residual mild infiltrate and/or atelectasis in the lower lung zones Reviewed, dictated and finalized at location A.
--- NOTE | ~2019-07-15 | XR_ITS ---
XR chest 1V portable DATE: 07/19/2019 05:49 INDICATION: Hypercapnic respiratory failure TECHNIQUE: Portable AP chest on 07/19/2019 at 0652 hours COMPARISON: 07/18/2019 portable AP chest at 0509 hours FINDINGS: Tip of ET tube is approximately 6 cm above acosta; ideal range is 2-5 cm. NG tube extends only approximately 5 cm distal to the diaphragmatic hiatus. No central lines are noted. Heart size appears within normal range. Resolution of mild congestive changes since 07/18/2019 There i s aortic calcification and unfolding. There are mild patchy bilateral lower lung infiltrates and/or atelectasis. No pulmonary vascular ney estion or pneumothorax. No significant pleural effusion is detected. IMPRESSION: ET tube 6 cm above acosta; ideal range is 205 cm NG tube extends only approximately 5 cm into the abdomen Resolution of mild congestive changes since 07/18/2019 Bibasilar mild infiltrate and/or atelectasis Reviewed, dictated and finalized at location A.
--- NOTE | ~2019-07-15 | XR_ITS ---
XR chest 1V portable 07/16/2019 05:43 Indication: Hypercapnic respiratory failure Procedure: AP portable chest Comparison: Comparison to multiple prior studies sequentially, with oldest reviewed study dated 08/2019. Findings: Endotracheal tube tip approximately 2.3 cm above the acosta. Heart size normal. Mild inters titial edema. Left basilar atelectasis. No pleural effusion or pneumothorax. No acute osseous abnorma lity. There are postsurgical changes of the right shoulder region. Impression: 1: Mild interstitial edema. Reviewed, dictated and finalized at location A. Impression: 1: Mild interstitial edema.
--- NOTE | ~2019-07-15 | XR_ITS ---
XR chest 1V portable 07/17/2019 05:53 Indication: Hypercapnic respiratory failure Procedure: AP portable chest Comparison: Comparison to multiple prior studies sequentially, with oldest reviewed study dated 10/2019. Findings: Borderline heart size. Endotracheal tube tip 4.4 cm above the acosta. Mild interstitial silvina ma. No pleural effusion or pneumothorax. NG tube in the stomach. Impression: 1: Developing mild interstitial edema. Reviewed, dictated and finalized at location A. Impression: 1: Developing mild interstitial edema.
--- NOTE | ~2019-07-15 | XR_ITS ---
XR abdomen NG/feed tube insert INDICATION: Evaluate NG tube position. TECHNIQUE: Limited KUB perform for evaluating NG tube . COMPARISON: 04/13/2019 FINDINGS: NG tube tip in the stomach. Visualized bowel gas pattern is unremarkable.There is patchy l eft-sided airspace disease which may represent edema or pneumonia. Small left pleural effusion. IMPRESSION: 1: NG tube tip in the stomach. Reviewed, dictated and finalized at location A. LER TENDER
--- NOTE | ~2019-07-15 | XR_ITS ---
XR chest 1V portable 07/18/2019 05:57 Indication: Hypercapnic respiratory failure Procedure: AP portable chest Comparison: Comparison to multiple prior studies sequentially, with oldest reviewed study dated 11/2019. Findings: Heart size normal. There is interstitial edema. No pleural effusion or pneumothorax. No acu te osseous abnormality. Endotracheal tube tip 6.5 cm above the acosta. No acute osseous abnormality. Impression: 1: Mild interstitial edema, unchanged. Reviewed, dictated and finalized at location A. Impression: 1: Mild interstitial edema, unchanged.
--- NOTE | ~2019-07-15 | XR_ITS ---
EXAMINATION: XR abdomen NG/feed tube rechec EXAM DATE: 07/16/2019 20:25 INDICATION: Feeding tube placement. TECHNIQUE: Frontal projection(s) of the abdomen for interpretation. Comparison is made to prior exami nation from 07/15/2019. FINDINGS: Feeding tube tip projects over gastric cardial region, side port at the gastroesophageal j unction level. This could be safely advanced 5 cm. Upper abdominal bowel gas pattern is unremarkable. Lung bases clear. The cardiomediastinal silhouette is prominent but magnified on this AP technique. IMPRESSION: Feeding tube tip in stomach but could be safely advanced 5 cm. Reviewed, dictated and finalized at location A.
--- NOTE | ~2019-07-15 | XR_ITS ---
XR chest 1V portable 07/15/2019 10:37 Indication: Endotracheal tube placement. Dyspnea. Procedure: AP portable chest Comparison: Comparison to multiple prior studies sequentially, with oldest reviewed study dated 11/2018. Findings: Borderline heart size with developing pulmonary edema. Endotracheal tube tip 4.4 cm above t he acosta. Small left pleural effusion. Impression: 1: Developing pulmonary edema. 2: Small left pleural effusion. Reviewed, dictated and finalized at location A. [employer] Impression: 1: Developing pulmonary edema. 2: Small left pleural effusion.
--- NOTE | 2019-07-15 10:23 | ADMGEN ---
This patient, Mike Dumont, was admitted to Intensive Care Unit-2. Patient/family oriented to hospital policies and general routines including ID bracelet, bed and alarms, visiting hours, pain management, procedures, bathroom and other care routines, personal items, smoking policy, room service/diet, and visiting hours. Valuables list has been completed. Information on how to activate the Rapid Response Team has been discussed. Patient/Family are encouraged to report perceived risks to care and to ask questions if they do not understand what they are told or what they should do.
[2019-07-15] MEDS: methylPREDNISolone SOD SUCC 125 MG VIAL (10:43)
[2019-07-15] MEDS: ALBUTEROL SULFATE NEB 2.5 MG/0.5 ML INH 10 MG INHALATION (10:47)
--- NOTE | 2019-07-15 10:57 | WPDCNINT ---
Assessment and Plan Assessment and plan (1) Acute and chronic respiratory failure: Qualifiers: Respiratory failure complication: hypoxia and hypercapnia Qualified Code(s): J96.21 - Acute and chronic respiratory failure with hypoxia; J96.22 - Acute and chronic respiratory failure with hypercapnia Code(s): J96.20 - Acute and chronic respiratory failure, unspecified whether with hypoxia or hypercapnia Status: Acute Assessment and Plan: acute hypercapnic respiratory failure likely secondary to COPD exacerbation and pneumonia. - Patient was intubated on 07/15/2019 secondary to unresponsive at the [facility] in [facility] with a pCO2 level of 127 on the ABG - patient started on ceftriaxone and azithromycin - started on albuterol and Atrovent nebulizer - started Solu-Medrol - sedated with fentanyl and Versed infusion, maintain RASS of 0 to -2, daily sedation vacation (2) COPD exacerbation: Code(s): J44.1 - Chronic obstructive pulmonary disease with (acute) exacerbation Status: Acute Assessment and Plan: continue mechanical ventilation, steroids, antibiotics and bronchodilators (3) Pneumonia: Qualifiers: Laterality: left Lung location: lower lobe of lung Pneumonia type: due to unspecified organism Qualified Code(s): J18.9 - Pneumonia, unspecified organism Code(s): J18.9 - Pneumonia, unspecified organism Status: Acute Assessment and Plan: bilateral infiltrates, likely pneumonia versus pulmonary edema - blood cultures have been obtained - continue antibiotics as above (4) Acute kidney injury: Code(s): N17.9 - Acute kidney failure, unspecified Status: Acute Assessment and Plan: patient with elevated creatinine, baseline creatinine is 1.1-1.2 - started on maintenance IV fluids - continue to monitor urine output, electrolytes and renal function (5) Diabetes mellitus: Qualifiers: Diabetes mellitus type: type 2 Diabetes mellitus nursing home insulin use: with long term care pharmacist use Diabetes mellitus complication status: with hyperglycemia Qualified Code(s): E11.65 - Type 2 diabetes mellitus with hyperglycemia; Z79.4 - rn long term care (current) use of insulin Code(s): E11.9 - Type 2 diabetes mellitus without complications Status: Acute Assessment and Plan: start Accu-Cheks and sliding scale insulin (6) Diastolic heart failure: Qualifiers: Heart failure chronicity: chronic Qualified Code(s): I50.32 - Chronic diastolic (congestive) heart failure Code(s): I50.30 - Unspecified diastolic (congestive) heart failure Status: Acute Assessment and Plan: patient with history of diastolic dysfunction, obtain echocardiogram - chest x-ray shows pneumonia versus pulmonary vascular congestion (7) Tobacco dependence: Code(s): F17.200 - Nicotine dependence, unspecified, uncomplicated Status: Acute Assessment and Plan: patient continues to smoke, states he is stubborn and does not want to quit but has decreased cigarettes in the last 4 days when he was not feeling too well - will counseled patient on smoking cessation once he is extubated (8) Hypertension: Qualifiers: Hypertension type: essential hypertension Qualified Code(s): I10 - Essential (primary) hypertension Code(s): I10 - Essential (primary) hypertension Status: Acute Assessment and Plan: will hold antihypertensives at this time patient's blood pressures have been stable (9) DVT prophylaxis: Code(s): Z29.9 - Encounter for prophylactic measures, unspecified Status: Acute Assessment and Plan: DVT prophylaxis: Lovenox SQ stress ulcer prophylaxis; Protonix Additional Plan discuss with and updated him with his condition and plan of care. I answered all questions Code status: Full code critical care time spent: 43 minutes
[2019-07-15] MEDS: MIDAZOLAM HCL 50 MG in DEXTROSE 5% 90 ML IV CONT (11:13)
[2019-07-15] MEDS: PANTOPRAZOLE SODIUM IV 40 MG VIAL IV PUSH (11:31)
[2019-07-15] MEDS: ENOXAPARIN 40 MG/0.4 ML SYRINGE SUB-Q (11:31)
[2019-07-15] MEDS: SODIUM CHLORIDE 0.9% IV 1,000 ML 75 ML IV CONT (11:36)
[2019-07-15 12:01] LABS: Alveolar/Arterial O2 Gradient 286.2 mmHg; Base Excess ABG 10.4 mEq/l (+/-2.0); Carboxyhemoglobin 0.7 % THb (0-2.0); Device VENTILATOR; Fractional Inspired Oxygen 60 %; HCO3 ABG 38.4 mEq/l (22.0-26.0); Methemoglobin ABG 0.4 %THb (0-1.5); Modified Allen's Test Pass; Oxygen Content ABG 16.4 %vol (16.0-22.0); Oxygen Saturation ABG 91.4 % (95.0-100.0); Oxyhemoglobin 92.6 % THb (90.0-100.0); PCO2 ABG 69.2 mmHg (35.0-45.0); PO2 ABG 65.5 mmHg (80.0-100.0); PO2 FiO2 Ratio Arterial Blood 1.09 %; Reduced Hemoglobin 6.3 %THb (0-5.0); Site Drawn LEFT RADIAL; Total Hemoglobin 12.6 g/dL (12.0-18.0); pH ABG 7.362 (7.350-7.450)
[2019-07-15 12:02] LABS: Arterial Blood Gas PEEP 5 cmH2O; Arterial Blood Gas Tidal Volume 450 ml; Arterial Blood Gas Vent Mode CMV; Arterial Blood Gas Ventilator rate 20 /MIN
[2019-07-15 12:05] LABS: Glucose Point of Care 195 (65-105)
[2019-07-15] MEDS: IPRATROPIUM BR 0.02% INH SOLN 0.5 MG/2.5 ML VIAL INHALATION ×2 (14:19→21:11)
[2019-07-15] MEDS: ALBUTEROL SULFATE NEB 2.5 MG/0.5 ML INH INHALATION ×2 (14:19→21:11)
--- NOTE | 2019-07-15 16:30 | PM.IMHP ---
H&P: HPI History of Present Illness Chief complaint: Acute respiratory failure. Narrative: Mike Dumont is a 73-year-old male smoker with COPD, diastolic congestive heart failure, hypertension, and hyperlipidemia who was directly admitted to the hospitalist service to the intensive care unit earlier today for further treatment of acute respiratory failure. He is currently sedated and intubated, and thus all of the following history is obtained via a review of his electronic medical records. He was seen in the emergency department at [facility] [place] after [place] with complaints of shortness of breath and cough productive of yellow/brown sputum. His symptoms evolved over 4 days time, but were worse in the past 24 hours. He was admitted to the hospital for pneumonia and COPD exacerbation and he was started on BiPAP. ABG on arrival to the emergency department showed a pH of 7.28, pCO2 50.1, PO2 103.3, and bicarb 40.3. A note dated 08/04/2019 at 01:18 notes that the patient's oxygen saturations were in the 70s on BiPAP. BiPAP was removed and he was placed on a non-rebreather at 15 liters/minute with improvement in SpO2 to 96 to 98%, which the nurse documents that he was tolerating non-rebreather much better than the BiPAP. A call was placed to the physician covering the hospital and emergency department regarding change in status, and is documented that the call was returned by any ED nurse, stating that the physician gave orders ?to put him on whenever device makes him feel more comfortable.? Many notes were entered in the computer by the floor nurse thereafter, indicating that the patient was having a difficult time using his call light and urinal, and he was frequently removing his non-rebreather mask and pulse oximeter. At 04:56, the patient's nurse found the patient with the non-rebreather mask off with a pulse ox of 56%. He appeared cyanotic, but oxygen saturations improved to the 90s when the mask was put back in place. An emergency department tech then came to the room and is sitting at the patient's bedside. At 06:41, it is documented that the patient was unresponsive to sternal rub. A rapid response was called, and when the physician entered the room the patient woke up and began talking. He was given a nebulizer and there were plans to try the patient back on BiPAP. Despite the BiPAP, his condition continued to decline and he was intubated at 08:30. He was then transferred to the intensive care unit and has been under the care of Dr. Geiger since that time. Review of Systems Review of Systems: ROS unobtainable: unobtainable due to endotracheal tube and unobtainable due to mental condition PMFSH Past Medical History Medical History (Updated 07/15/19 @ 23:44 by Dayana Boles PA-C) COPD (chronic obstructive pulmonary disease) Diabetes mellitus Diastolic heart failure Hypertension Respiratory failure History of acute hypercapnic respiratory failure requiring intubation in April 2019 here at [facility]. Tobacco dependence Surgical History Surgical History Clavicle fracture Family History Family History Mother Liver cancer Father Empyema Social History Social History Smoking packs per day: 1 Smoking cigarettes per day: 20.0 Years smoked: 64 Smoking pack-years: 64.00 Smoking status: Current every day smoker Tobacco type: cigarettes Second hand tobacco smoke exposure: Yes Alcohol intake: former Drinks per week: 1 Substance use: never Last use: RARE ON ALCOHOL INTAKE @ 1 MONTH Gender identity (if verbalized by the patient): Male Spiritual care concerns: No Agree to blood products: Yes Meds Home Medications and Allergies Home Medications Medication Instructions Recorded Confirmed Type
[2019-07-15 17:51] LABS: Glucose Point of Care 181 (65-105)
[2019-07-15] MEDS: methylPREDNISolone SOD SUCC 40 MG VIAL IV PUSH ×2 (18:02→23:13)
[2019-07-15 23:18] LABS: Glucose Point of Care 196 (65-105)
[2019-07-16] VITALS (27 sets, daily range): BP systolic 104–135; BP diastolic 61–88; PULSE 52–78; RESP 19–20; TEMP 35.5–36.5; O2SAT 90–98
[2019-07-16] MEDS: SODIUM CHLORIDE 0.9% IV 1,000 ML 75 ML IV CONT ×2 (00:59→16:25)
--- NOTE | 2019-07-16 03:00 | PCRCNOTE ---
Daylight Savings Time For Daylight Savings Time Ending in the Fall - Clocks are moved back. For Daylight Savings Time Beginning in the Spring - Clocks are moved ahead. For [facility], the time of change occurs at 0200 hrs. Time is taken from the restaurant server. This entry on the patient's chart recognizes the change in time reflected during documentation. Example: 2 entries for vital signs may be charted for 0200 hrs.
[2019-07-16] MEDS: IPRATROPIUM BR 0.02% INH SOLN 0.5 MG/2.5 ML VIAL INHALATION ×4 (03:02→19:15)
[2019-07-16] MEDS: ALBUTEROL SULFATE NEB 2.5 MG/0.5 ML INH INHALATION ×4 (03:02→19:15)
--- NOTE | 2019-07-16 03:57 | PC.NURSE ---
Daylight Savings Time For Daylight Savings Time Ending in the Fall - Clocks are moved back. For Daylight Savings Time Beginning in the Spring - Clocks are moved ahead. For [facility], the time of change occurs at 0200 hrs. Time is taken from the enlisted aircrew/aerial observer/gunner. This entry on the patient's chart recognizes the change in time reflected during documentation. Example: 2 entries for vital signs may be charted for 0200 hrs.
[2019-07-16 04:21] LABS: Basophils Percent Auto 0.1 % (0.2-1.2); Hematocrit 34.6 % (42.0-52.0); Hemoglobin 10.5 g/dL (14.0-18.0); Immature Granulocyte Absolute 0.17 K/mm3 (0.00-0.031); Immature Granulocyte Percent A 1.3 % (0-0.5); Lymphocytes Absolute Auto 0.42 K/mm3 (0.9-3.2); Lymphocytes Percent Auto 3.3 % (18.3-44.2); Mean Corpuscular HGB Conc 30.3 g/dl (32-36); Mean Corpuscular Hemoglobin 28.2 pg (26-34); Mean Corpuscular Volume 92.8 fl (80-100); Mean Platelet Volume 10.5 fl (7.4-10.4); Monocytes Absolute Auto 0.5 K/mm3 (0.1-0.6); Monocytes Percent Auto 3.7 % (2.6-8.5); Neutrophils Absolute Auto 11.7 K/mm3 (1.3-6.7); Neutrophils Percent Auto 91.6 % (45.5-73.1); Nucleated Red Blood Cells Perc 0.2 % (0.0-0.2); Platelet Count Result 343 k/mm3 (150-375); Red Blood Count 3.73 M/mm3 (4.6-6.20); Red Cell Distribution Width 14.1 % (11.5-14.5); White Blood Count 12.8 K/mm3 (4.5-10.0)
[2019-07-16 04:24] LABS: Alveolar/Arterial O2 Gradient 226.9 mmHg; Base Excess ABG 7.8 mEq/l (+/-2.0); Carboxyhemoglobin 0.3 % THb (0-2.0); Fractional Inspired Oxygen 50 %; HCO3 ABG 33.6 mEq/l (22.0-26.0); Methemoglobin ABG 0.4 %THb (0-1.5); Oxygen Content ABG 15.5 %vol (16.0-22.0); Oxygen Saturation ABG 94.4 % (95.0-100.0); PCO2 ABG 52.2 mmHg (35.0-45.0); PO2 ABG 70.9 mmHg (80.0-100.0); PO2 FiO2 Ratio Arterial Blood 1.42 %; Reduced Hemoglobin 6.3 %THb (0-5.0); Total Hemoglobin 11.8 g/dL (12.0-18.0); pH ABG 7.426 (7.350-7.450)
[2019-07-16 04:26] LABS: Device VENTILATOR; Modified Allen's Test Pass; Site Drawn LEFT RADIAL
[2019-07-16 04:27] LABS: Arterial Blood Gas PEEP 5 cmH2O; Arterial Blood Gas Tidal Volume 450 ml; Arterial Blood Gas Vent Mode CMV; Arterial Blood Gas Ventilator rate 20 /MIN
[2019-07-16 04:32] LABS: Lactic Acid 0.9 mmol/L (0.7-2.1)
[2019-07-16 04:43] LABS: Blood Urea Nitrogen 35 mg/dL (9-20); Calcium 9.4 mg/dL (8.4-10.2); Carbon Dioxide 36 mmol/L (22-30); Chloride 94 mmol/L (98-107); Estimated CRCL calculation 56 ml/min; Estimated Glomerular Filt Rate 60; Glucose 193 mg/dL (75-110); Magnesium 2.3 mg/dL (1.6-2.3); Phosphorus 2.7 mg/dL (2.5-4.5); Potassium 3.8 mmol/L (3.4-5.0); Sodium 135 mmol/L (137-145)
[2019-07-16 05:05] LABS: CRP 26.8 mg/dL (<1.0)
[2019-07-16] MEDS: methylPREDNISolone SOD SUCC 40 MG VIAL IV PUSH ×3 (05:19→17:34)
[2019-07-16 05:38] LABS: Hemoglobin A1C 6.5 % (<5.7)
[2019-07-16] MEDS: MIDAZOLAM HCL 50 MG in DEXTROSE 5% 90 ML 6 MG IV CONT (05:54)
[2019-07-16] MEDS: SODIUM CHLORIDE 0.9% IV 500 ML 75 ML IV CONT (07:00)
[2019-07-16] MEDS: PANTOPRAZOLE SODIUM IV 40 MG VIAL IV PUSH (08:02)
[2019-07-16] MEDS: ENOXAPARIN 40 MG/0.4 ML SYRINGE SUB-Q (08:02)
[2019-07-16] MEDS: DORNASE ALFA INH SOLN 1 MG/ML 2.5 ML AMP 2.5 MG INHALATION ×2 (10:25→19:15)
--- NOTE | 2019-07-16 11:28 | WPDINTPN ---
Progress Note: A&P Assessment and Plan (1) Acute and chronic respiratory failure: Qualifiers: Respiratory failure complication: hypoxia and hypercapnia Qualified Code(s): J96.21 - Acute and chronic respiratory failure with hypoxia; J96.22 - Acute and chronic respiratory failure with hypercapnia Code(s): J96.20 - Acute and chronic respiratory failure, unspecified whether with hypoxia or hypercapnia Status: Acute Assessment and Plan: acute hypercapnic respiratory failure likely secondary to COPD exacerbation and pneumonia. - Patient was intubated on 07/15/2019 secondary to unresponsive at the outside hospital in [facility] with a pCO2 level of 127 on the ABG - chest x-ray and ABGs reviewed - patient on ceftriaxone and azithromycin - continue albuterol and Atrovent nebulizer, had Pulmozyme - continue Solu-Medrol - sedated with fentanyl and Versed infusion, maintain RASS of 0 to -2, daily sedation vacation (2) COPD exacerbation: Code(s): J44.1 - Chronic obstructive pulmonary disease with (acute) exacerbation Status: Acute Assessment and Plan: continue mechanical ventilation, steroids, antibiotics and bronchodilators (3) Pneumonia: Qualifiers: Laterality: left Lung location: lower lobe of lung Pneumonia type: due to unspecified organism Qualified Code(s): J18.9 - Pneumonia, unspecified organism Code(s): J18.9 - Pneumonia, unspecified organism Status: Acute Assessment and Plan: bilateral infiltrates, likely pneumonia versus pulmonary edema - blood cultures have been obtained - continue antibiotics as above (4) Acute kidney injury: Code(s): N17.9 - Acute kidney failure, unspecified Status: Acute Assessment and Plan: patient with elevated creatinine, baseline creatinine is 1.1-1.2 - on maintenance IV fluids, creatinine improved - continue to monitor urine output, electrolytes and renal function (5) Diabetes mellitus: Qualifiers: Diabetes mellitus type: type 2 Diabetes mellitus nursing home insulin use: with nursing home use Diabetes mellitus complication status: with hyperglycemia Qualified Code(s): E11.65 - Type 2 diabetes mellitus with hyperglycemia; Z79.4 - prison (current) use of insulin Code(s): E11.9 - Type 2 diabetes mellitus without complications Status: Acute Assessment and Plan: continue Accu-Cheks and sliding scale insulin (6) Diastolic heart failure: Qualifiers: Heart failure chronicity: chronic Qualified Code(s): I50.32 - Chronic diastolic (congestive) heart failure Code(s): I50.30 - Unspecified diastolic (congestive) heart failure Status: Acute Assessment and Plan: patient with history of diastolic dysfunction, echocardiogram report pending - chest x-ray shows pneumonia versus pulmonary vascular congestion (7) Tobacco dependence: Code(s): F17.200 - Nicotine dependence, unspecified, uncomplicated Status: Acute Assessment and Plan: patient continues to smoke, states he is stubborn and does not want to quit but has decreased cigarettes in the last 4 days when he was not feeling too well - will counseled patient on smoking cessation once he is extubated (8) Hypertension: Qualifiers: Hypertension type: essential hypertension Qualified Code(s): I10 - Essential (primary) hypertension Code(s): I10 - Essential (primary) hypertension Status: Acute Assessment and Plan: will hold antihypertensives at this time patient's blood pressures have been stable (9) Dietary counseling and surveillance: Code(s): Z71.3 - Dietary counseling and surveillance Status: Acute Assessment and Plan: start patient on Glucerna tube feeds (10) DVT prophylaxis: Code(s): Z29.9 - Encounter for prophylactic measures, unspecified Status: Acute Assessment and Plan:
[2019-07-16] MEDS: SODIUM CHLORIDE 0.9% IV 1,000 ML 999 ML IV CONT (12:27)
[2019-07-16 12:36] LABS: Glucose Point of Care 172 (65-105)
--- NOTE | 2019-07-16 14:52 | P.PNIM_ITS ---
Progress Note: A&P Assessment and Plan (1) Acute and chronic respiratory failure: Qualifiers: Respiratory failure complication: hypoxia and hypercapnia Qualified Code(s): J96.21 - Acute and chronic respiratory failure with hypoxia; J96.22 - Acute and chronic respiratory failure with hypercapnia Code(s): J96.20 - Acute and chronic respiratory failure, unspecified whether with hypoxia or hypercapnia Status: Acute Assessment and Plan: * Patient probably with chronic CO2 retention * Respiratory failure secondary to pneumonia and COPD exacerbation * ABG showing 7.13/127/120 on 07/15/19 * Currently supported by mechanical ventilation. * ABG today showing 7.42/52/71 * Vent management per Dr. Geiger and appreciate his input (2) Sepsis: Code(s): A41.9 - Sepsis, unspecified organism Status: Acute Assessment and Plan: * Present on admission w/ leukocytosis, lactic acidosis, and XIAO * Lactic acid level 4.6 but has normalized on repeat. * Blood culture NGTD; MRSA nasal swab pending. (3) Pneumonia: Qualifiers: Laterality: left Lung location: lower lobe of lung Pneumonia type: due to unspecified organism Qualified Code(s): J18.9 - Pneumonia, unspecified organism Code(s): J18.9 - Pneumonia, unspecified organism Status: Acute Assessment and Plan: * Orignial CXR 07/13 concern for PNA * CXR on 07/15 just showing pulmonary edema * Will continue ceftriaxone, azithromycin. * Scheduled nebs (4) COPD exacerbation: Code(s): J44.1 - Chronic obstructive pulmonary disease with (acute) exacerbation Status: Acute Assessment and Plan: * Still wheezing * Continue scheduled nebulizers and Pulmozyme * Contineu Solu-Medrol (5) Acute kidney injury: Code(s): N17.9 - Acute kidney failure, unspecified Status: Acute Assessment and Plan: * Baseline creatinine is about 1.1 to 1.2. * Mild XIAO with Cr 1.67 but Cr back down to baseline * Judicious use of fluids. (6) Diabetes mellitus: Qualifiers: Diabetes mellitus complication status: with hyperglycemia Diabetes mellitus nursing home insulin use: with nursing home use Diabetes mellitus type: type 2 Qualified Code(s): E11.65 - Type 2 diabetes mellitus with hyperglycemia; Z79.4 - [facility] (current) use of insulin Code(s): E11.9 - Type 2 diabetes mellitus without complications Status: Acute Assessment and Plan: * A1c 6.5 * Glucose reviewed on 07/15 * Glucose reasonably well controlled * Continue Accu-Cheks with sliding scale insulin coverage. Hypoglycemic protocol. (7) Diastolic heart failure: Qualifiers: Heart failure chronicity: chronic Qualified Code(s): I50.32 - Chronic diastolic (congestive) heart failure Code(s): I50.30 - Unspecified diastolic (congestive) heart failure Status: Acute Assessment and Plan: * BNP is 192; CXR showing mild interstital edema * Echo 07/14 showing EF 60-65%, DD grade I, Moderate RV enlargement * Monitor fluid status closely. (8) Tobacco dependence: Code(s): F17.200 - Nicotine dependence, unspecified, uncomplicated Status: Acute Assessment and Plan: * Patient continues to smoke and not seem motivated to quit per . * Will educate about the benefits of smoking cessation when able (9) Hypertension: Qualifiers: Hypertension type: essential hypertension Qualified Code(s): I10 - Essential (primary) hypertension Code(s): I10 -
--- NOTE | 2019-07-16 14:52 | PM.IMPN ---
Progress Note: A&P Assessment and Plan (1) Acute and chronic respiratory failure: Qualifiers: Respiratory failure complication: hypoxia and hypercapnia Qualified Code(s): J96.21 - Acute and chronic respiratory failure with hypoxia; J96.22 - Acute and chronic respiratory failure with hypercapnia Code(s): J96.20 - Acute and chronic respiratory failure, unspecified whether with hypoxia or hypercapnia Status: Acute Assessment and Plan: Patient probably with chronic CO2 retention Respiratory failure secondary to pneumonia and COPD exacerbation ABG showing 7.13/127/120 on 07/15/19 Currently supported by mechanical ventilation. ABG today showing 7.42/52/[address] Geiger and appreciate his input (2) Sepsis: Code(s): A41.9 - Sepsis, unspecified organism Status: Acute Assessment and Plan: Present on admission w/ leukocytosis, lactic acidosis, and XIAO Lactic acid level 4.6 but has normalized on repeat. Blood culture NGTD; MRSA nasal swab pending. (3) Pneumonia: Qualifiers: Laterality: left Lung location: lower lobe of lung Pneumonia type: due to unspecified organism Qualified Code(s): J18.9 - Pneumonia, unspecified organism Code(s): J18.9 - Pneumonia, unspecified organism Status: Acute Assessment and Plan: Orignial CXR 07/13 concern for PNA CXR on 07/15 just showing pulmonary edema Will continue ceftriaxone, azithromycin. Scheduled nebs (4) COPD exacerbation: Code(s): J44.1 - Chronic obstructive pulmonary disease with (acute) exacerbation Status: Acute Assessment and Plan: Still wheezing Continue scheduled nebulizers and Pulmozyme Contineu Solu-Medrol (5) Acute kidney injury: Code(s): N17.9 - Acute kidney failure, unspecified Status: Acute Assessment and Plan: Baseline creatinine is about 1.1 to 1.2. Mild XIAO with Cr 1.67 but Cr back down to baseline Judicious use of fluids. (6) Diabetes mellitus: Qualifiers: Diabetes mellitus complication status: with hyperglycemia Diabetes mellitus termite treater helper insulin use: with termite treater helper use Diabetes mellitus type: type 2 Qualified Code(s): E11.65 - Type 2 diabetes mellitus with hyperglycemia; Z79.4 - joint terminal attack controller (current) use of insulin Code(s): E11.9 - Type 2 diabetes mellitus without complications Status: Acute Assessment and Plan: A1c 6.5 Glucose reviewed on 07/15 Glucose reasonably well controlled Continue Accu-Cheks with sliding scale insulin coverage. Hypoglycemic protocol. (7) Diastolic heart failure: Qualifiers: Heart failure chronicity: chronic Qualified Code(s): I50.32 - Chronic diastolic (congestive) heart failure Code(s): I50.30 - Unspecified diastolic (congestive) heart failure Status: Acute Assessment and Plan: BNP is 192; CXR showing mild interstital edema Echo 07/14 showing EF 60-65%, DD grade I, Moderate RV enlargement Monitor fluid status closely. (8) Tobacco dependence: Code(s): F17.200 - Nicotine dependence, unspecified, uncomplicated Status: Acute Assessment and Plan: Patient continues to smoke and not seem motivated to quit per . Will educate about the benefits of smoking cessation when able (9) Hypertension: Qualifiers: Hypertension type: essential hypertension Qualified Code(s): I10 - Essential (primary) hypertension Code(s): I10 - Essential (primary) hypertension Status: Acute Assessment and Plan: Blood pressures were reviewed on 07/15 BP remaining stbale Antihypertensives remain on hold Subjective Date/time seen: 07/16/19 14:52 Interval history: 73yo male here for acute respiratory failur, sepsis from PNA. Patient currently intubated and sedated. Review of Systems Review of Systems: ROS unobtainable: unobtainable due to endotracheal tube E
[2019-07-16 18:08] LABS: Glucose Point of Care 163 (65-105)
[2019-07-16] MEDS: MIDAZOLAM HCL 50 MG in DEXTROSE 5% 90 ML 10 MG IV CONT (18:46)
[2019-07-17] VITALS (25 sets, daily range): BP systolic 118–180; BP diastolic 69–89; PULSE 52–82; RESP 20–97; TEMP 35.9–37.1; O2SAT 91–98; BMI 34.5
[2019-07-17] MEDS: methylPREDNISolone SOD SUCC 40 MG VIAL IV PUSH ×2 (00:24→05:16)
[2019-07-17] MEDS: INSULIN ASPART (*BKC) 100 UNITS/ML SUB-Q ×4 (00:27→23:56)
[2019-07-17 00:43] LABS: Glucose Point of Care 234 (65-105)
[2019-07-17] MEDS: IPRATROPIUM BR 0.02% INH SOLN 0.5 MG/2.5 ML VIAL INHALATION ×4 (01:46→19:54)
[2019-07-17] MEDS: ALBUTEROL SULFATE NEB 2.5 MG/0.5 ML INH INHALATION ×4 (01:46→19:55)
[2019-07-17 05:07] LABS: Blood Urea Nitrogen 44 mg/dL (9-20); Calcium 9.6 mg/dL (8.4-10.2); Carbon Dioxide 33 mmol/L (22-30); Chloride 98 mmol/L (98-107); Estimated CRCL calculation 52 ml/min; Estimated Glomerular Filt Rate 54; Glucose 211 mg/dL (75-110); Magnesium 2.1 mg/dL (1.6-2.3); Phosphorus 3.4 mg/dL (2.5-4.5); Sodium 135 mmol/L (137-145)
[2019-07-17] MEDS: SODIUM CHLORIDE 0.9% IV 1,000 ML 75 ML IV CONT (05:16)
[2019-07-17] MEDS: MIDAZOLAM HCL 50 MG in DEXTROSE 5% 90 ML 10 MG IV CONT (05:17)
[2019-07-17 05:57] LABS: Alveolar/Arterial O2 Gradient 215.3 mmHg; Base Excess ABG 5.2 mEq/l (+/-2.0); Fractional Inspired Oxygen 50 %; Methemoglobin ABG 0.2 %THb (0-1.5); Oxygen Content ABG 15.7 %vol (16.0-22.0); Oxygen Saturation ABG 94.4 % (95.0-100.0); PCO2 ABG 58.1 mmHg (35.0-45.0); PO2 ABG 75.8 mmHg (80.0-100.0); PO2 FiO2 Ratio Arterial Blood 1.52 %; Reduced Hemoglobin 5.8 %THb (0-5.0); Total Hemoglobin 11.8 g/dL (12.0-18.0); pH ABG 7.359 (7.350-7.450)
[2019-07-17 05:59] LABS: Device VENTILATOR; Modified Allen's Test Pass; Site Drawn LEFT RADIAL
[2019-07-17 06:00] LABS: Arterial Blood Gas PEEP 5 cmH2O; Arterial Blood Gas Tidal Volume 450 ml; Arterial Blood Gas Vent Mode CMV; Arterial Blood Gas Ventilator rate 20 /MIN
--- NOTE | 2019-07-17 07:15 | WPDINTPN ---
Progress Note: A&P Assessment and Plan (1) Acute and chronic respiratory failure: Qualifiers: Respiratory failure complication: hypoxia and hypercapnia Qualified Code(s): J96.21 - Acute and chronic respiratory failure with hypoxia; J96.22 - Acute and chronic respiratory failure with hypercapnia Code(s): J96.20 - Acute and chronic respiratory failure, unspecified whether with hypoxia or hypercapnia Status: Acute Assessment and Plan: acute hypercapnic respiratory failure likely secondary to COPD exacerbation and pneumonia. - Patient was intubated on 07/15/2019 secondary to unresponsive at the outside hospital in [facility] with a pCO2 level of 127 on the ABG - chest x-ray and ABGs reviewed - patient on ceftriaxone and azithromycin - continue albuterol and Atrovent nebulized - continue Solu-Medrol. changed to q.12 hours - sedated with fentanyl and Versed infusion, maintain RASS of 0 to -2, daily sedation vacation - Lasix for pulmonary edema. - DC IV fluids. (2) COPD exacerbation: Code(s): J44.1 - Chronic obstructive pulmonary disease with (acute) exacerbation Status: Acute Assessment and Plan: continue mechanical ventilation, steroids, antibiotics and bronchodilators (3) Pneumonia: Qualifiers: Laterality: left Lung location: lower lobe of lung Pneumonia type: due to unspecified organism Qualified Code(s): J18.9 - Pneumonia, unspecified organism Code(s): J18.9 - Pneumonia, unspecified organism Status: Acute Assessment and Plan: bilateral infiltrates, likely pneumonia versus pulmonary edema - blood cultures have been obtained - continue antibiotics as above (4) Acute kidney injury: Code(s): N17.9 - Acute kidney failure, unspecified Status: Acute Assessment and Plan: patient with elevated creatinine, baseline creatinine is 1.1-1.2 - was on maintenance IV fluids, creatinine improved - patient now developing volume overload hence will IV fluids and continue tube feeding. - Creatinine appears to have normalized - continue to monitor urine output, electrolytes and renal function (5) Diabetes mellitus: Qualifiers: Diabetes mellitus type: type 2 Diabetes mellitus technician terminal and repeater insulin use: with fdc use Diabetes mellitus complication status: with hyperglycemia Qualified Code(s): E11.65 - Type 2 diabetes mellitus with hyperglycemia; Z79.4 - termite exterminator (current) use of insulin Code(s): E11.9 - Type 2 diabetes mellitus without complications Status: Acute Assessment and Plan: continue Accu-Cheks and sliding scale insulin Add Lantus (6) Diastolic heart failure: Qualifiers: Heart failure chronicity: chronic Qualified Code(s): I50.32 - Chronic diastolic (congestive) heart failure Code(s): I50.30 - Unspecified diastolic (congestive) heart failure Status: Acute Assessment and Plan: Patient with history of diastolic dysfunction, echocardiogram report pending ECHO Summary 1. Left ventricular systolic function is normal, estimated at 60-65%. 2. There is mildly increased left ventricular wall thickness. 3. The left ventricular diastolic function is grade I diastolic dysfunction. 4. Right ventricular chamber dimension is moderately enlarged. 5. Right atrial chamber dimension is mildly enlarged. - chest x-ray shows pulmonary vascular congestion - discontinue IV fluids and Lasix for pulmonary edema (7) Tobacco dependence: Code(s): F17.200 - Nicotine dependence, unspecified, uncomplicated Status: Acute Assessment and Plan: patient continues to smoke, states he is stubborn and does not want to quit but has decreased cigarettes in the last 4 days when he was not feeling too well - will program counselor patient on smoking cessation once he is extubated (8) Hypertension: Qualifiers: Hypertension type: essentia
[2019-07-17] MEDS: ENOXAPARIN 40 MG/0.4 ML SYRINGE SUB-Q (08:32)
[2019-07-17] MEDS: PANTOPRAZOLE SODIUM IV 40 MG VIAL IV PUSH (08:32)
[2019-07-17] MEDS: DORNASE ALFA INH SOLN 1 MG/ML 2.5 ML AMP 2.5 MG INHALATION ×2 (08:35→19:54)
[2019-07-17] MEDS: FUROSEMIDE INJ 40 MG/4 ML VIAL IV PUSH (09:31)
[2019-07-17] MEDS: INSULIN GLARGINE (*BKC) 100 UNITS/ML 20 UNITS SUB-Q (09:31)
[2019-07-17] MEDS: methylPREDNISolone SOD SUCC 125 MG VIAL 60 MG IV PUSH ×2 (12:04→21:33)
[2019-07-17 12:16] LABS: Glucose Point of Care 180 (65-105)
--- NOTE | 2019-07-17 12:32 | P.PNIM_ITS ---
Progress Note: A&P Assessment and Plan (1) Acute and chronic respiratory failure: Qualifiers: Respiratory failure complication: hypoxia and hypercapnia Qualified Code(s): J96.21 - Acute and chronic respiratory failure with hypoxia; J96.22 - Acute and chronic respiratory failure with hypercapnia Code(s): J96.20 - Acute and chronic respiratory failure, unspecified whether with hypoxia or hypercapnia Status: Acute Assessment and Plan: * Patient probably with chronic CO2 retention * Respiratory failure secondary to pneumonia and COPD exacerbation * ABG showing 7.13/127/120 on 07/15/19 * Currently supported by mechanical ventilation. * ABG today showing 7.36/58/76 * Vent management per audit director and appreciate his input. Discussed. (2) Sepsis: Code(s): A41.9 - Sepsis, unspecified organism Status: Acute Assessment and Plan: * Present on admission w/ leukocytosis, lactic acidosis, and XIAO * Lactic acid level 4.6 but has normalized on repeat. * Blood culture NGTD; MRSA nasal swab negative (3) Pneumonia: Qualifiers: Laterality: left Lung location: lower lobe of lung Pneumonia type: due to unspecified organism Qualified Code(s): J18.9 - Pneumonia, unspecified org anism Code(s): J18.9 - Pneumonia, unspecified organism Status: Acute Assessment and Plan: * Orignial CXR 07/13 concern for PNA * CXR on 07/16 just showing mild interstitial edema * Will continue ceftriaxone, azithromycin. * Continue scheduled nebulizer treatments (4) COPD exacerbation: Code(s): J44.1 - Chronic obstructive pulmonary disease with (acute) exacerbation Status: Acute Assessment and Plan: * Coarse breath sounds today. * Continue scheduled nebulizers and Pulmozyme * Continue Solu-Medrol (5) Acute kidney injury: Code(s): N17.9 - Acute kidney failure, unspecified Status: Acute Assessment and Plan: * Baseline creatinine is about 1.1 to 1.2. * Mild XIAO with Cr 1.67 but Cr back down to baseline * Monitor closely after Lasix. (6) Diabetes mellitus: Qualifiers: Diabetes mellitus type: type 2 Diabetes mellitus chocolate molder insulin use: with chocolate molder use Diabetes mellitus complication status: with hyperglycemia Qualified Code(s): E11.65 - Type 2 diabetes mellitus with hyperglycemia; Z79.4 - long-term (current) use of insulin Code(s): E11.9 - Type 2 diabetes mellitus without complications Status: Acute Assessment and Plan: * A1c 6.5 * Glucose reviewed on 07/16 * Glucose reasonably well controlled * Continue Accu-Cheks with sliding scale insulin coverage. Hypoglycemic protocol. (7) Diastolic heart failure: Qualifiers: Heart failure chronicity: chronic Qualified Code(s): I50.32 - Chronic diastolic (congestive) heart failure Code(s): I50.30 - Unspecified diastolic (congestive) heart failure Status: Acute Assessment and Plan: * BNP is 192; CXR reviewed today showing mild interstitial edema * Echo 07/14 showing EF 60-65%, DD grade I, Moderate RV enlargement * Lasix 40 mg IV x1 was given. * Monitor fluid status closely. (8) Tobacco dependence: Code(s): F17.200 - Nicotine dependence, unspecified, uncomplicated Status: Acute Assessment and Plan: * Patient continues to smoke and does not seem motivated to quit per . * Will educate about the benefits of smoking cessation when able (9) Hypertension: Qualifiers: Hypertension type:
--- NOTE | 2019-07-17 12:32 | PM.IMPN ---
Progress Note: A&P Assessment and Plan (1) Acute and chronic respiratory failure: Qualifiers: Respiratory failure complication: hypoxia and hypercapnia Qualified Code(s): J96.21 - Acute and chronic respiratory failure with hypoxia; J96.22 - Acute and chronic respiratory failure with hypercapnia Code(s): J96.20 - Acute and chronic respiratory failure, unspecified whether with hypoxia or hypercapnia Status: Acute Assessment and Plan: Patient probably with chronic CO2 retention Respiratory failure secondary to pneumonia and COPD exacerbation ABG showing 7.13/127/120 on 07/15/19 Currently supported by mechanical ventilation. ABG today showing 7.36/58/76 Vent management per rod tape operator and appreciate his input. Discussed. (2) Sepsis: Code(s): A41.9 - Sepsis, unspecified organism Status: Acute Assessment and Plan: Present on admission w/ leukocytosis, lactic acidosis, and XIAO Lactic acid level 4.6 but has normalized on repeat. Blood culture NGTD; MRSA nasal swab negative (3) Pneumonia: Qualifiers: Laterality: left Lung location: lower lobe of lung Pneumonia type: due to unspecified organism Qualified Code(s): J18.9 - Pneumonia, unspecified organism Code(s): J18.9 - Pneumonia, unspecified organism Status: Acute Assessment and Plan: Orignial CXR 07/13 concern for PNA CXR on 07/16 just showing mild interstitial edema Will continue ceftriaxone, azithromycin. Continue scheduled nebulizer treatments (4) COPD exacerbation: Code(s): J44.1 - Chronic obstructive pulmonary disease with (acute) exacerbation Status: Acute Assessment and Plan: Coarse breath sounds today. Continue scheduled nebulizers and Pulmozyme Continue Solu-Medrol (5) Acute kidney injury: Code(s): N17.9 - Acute kidney failure, unspecified Status: Acute Assessment and Plan: Baseline creatinine is about 1.1 to 1.2. Mild XIAO with Cr 1.67 but Cr back down to baseline Monitor closely after Lasix. (6) Diabetes mellitus: Qualifiers: Diabetes mellitus type: type 2 Diabetes mellitus group home insulin use: with group home use Diabetes mellitus complication status: with hyperglycemia Qualified Code(s): E11.65 - Type 2 diabetes mellitus with hyperglycemia; Z79.4 - custodial (current) use of insulin Code(s): E11.9 - Type 2 diabetes mellitus without complications Status: Acute Assessment and Plan: A1c 6.5 Glucose reviewed on 07/16 Glucose reasonably well controlled Continue Accu-Cheks with sliding scale insulin coverage. Hypoglycemic protocol. (7) Diastolic heart failure: Qualifiers: Heart failure chronicity: chronic Qualified Code(s): I50.32 - Chronic diastolic (congestive) heart failure Code(s): I50.30 - Unspecified diastolic (congestive) heart failure Status: Acute Assessment and Plan: BNP is 192; CXR reviewed today showing mild interstitial edema Echo 07/14 showing EF 60-65%, DD grade I, Moderate RV enlargement Lasix 40 mg IV x1 was given. Monitor fluid status closely. (8) Tobacco dependence: Code(s): F17.200 - Nicotine dependence, unspecified, uncomplicated Status: Acute Assessment and Plan: Patient continues to smoke and does not seem motivated to quit per . Will educate about the benefits of smoking cessation when able (9) Hypertension: Qualifiers: Hypertension type: essential hypertension Qualified Code(s): I10 - Essential (primary) hypertension Code(s): I10 - Essential (primary) hypertension Status: Acute Assessment and Plan: Blood pressures were reviewed on 07/16 BP remaining stable Antihypertensives remain on hold Subjective Date/time seen: 07/17/19 12:32 Interval history: 73yo male here for acute respiratory failur, sepsis from PNA. Patient currently intubated and s
[2019-07-17 17:29] LABS: Glucose Point of Care 220 (65-105)
[2019-07-17] MEDS: hydrALAZINE HCL 20 MG/ML VIAL 10 MG IV PUSH (21:33)
[2019-07-17 23:51] LABS: Glucose Point of Care 303 (65-105)
[2019-07-18] VITALS (26 sets, daily range): BP systolic 96–163; BP diastolic 69–88; PULSE 54–92; RESP 18–33; TEMP 36.4–37; O2SAT 91–96
[2019-07-18] MEDS: IPRATROPIUM BR 0.02% INH SOLN 0.5 MG/2.5 ML VIAL INHALATION ×4 (03:00→20:27)
[2019-07-18] MEDS: ALBUTEROL SULFATE NEB 2.5 MG/0.5 ML INH INHALATION ×4 (03:00→20:27)
[2019-07-18 05:12] LABS: Blood Urea Nitrogen 46 mg/dL (9-20); Calcium 9.7 mg/dL (8.4-10.2); Carbon Dioxide 36 mmol/L (22-30); Chloride 94 mmol/L (98-107); Estimated CRCL calculation 57 ml/min; Estimated Glomerular Filt Rate 60; Glucose 221 mg/dL (75-110); Magnesium 1.8 mg/dL (1.6-2.3); Phosphorus 3.3 mg/dL (2.5-4.5); Potassium 3.7 mmol/L (3.4-5.0); Sodium 134 mmol/L (137-145)
[2019-07-18] MEDS: INSULIN ASPART (*BKC) 100 UNITS/ML SUB-Q ×4 (05:17→23:50)
[2019-07-18 05:29] LABS: Alveolar/Arterial O2 Gradient 224.7 mmHg; Base Excess ABG 9.2 mEq/l (+/-2.0); Carboxyhemoglobin 0.3 % THb (0-2.0); Fractional Inspired Oxygen 50 %; HCO3 ABG 36.2 mEq/l (22.0-26.0); Methemoglobin ABG 0.4 %THb (0-1.5); Oxygen Content ABG 18.2 %vol (16.0-22.0); Oxygen Saturation ABG 92.5 % (95.0-100.0); Oxyhemoglobin 90.6 % THb (90.0-100.0); PCO2 ABG 58.9 mmHg (35.0-45.0); PO2 ABG 65.5 mmHg (80.0-100.0); PO2 FiO2 Ratio Arterial Blood 1.31 %; Reduced Hemoglobin 8.7 %THb (0-5.0); Total Hemoglobin 14.3 g/dL (12.0-18.0); pH ABG 7.406 (7.350-7.450)
[2019-07-18 05:30] LABS: Arterial Blood Gas Vent Mode CMV; Arterial Blood Gas Ventilator rate 20 /MIN; Device VENTILATOR; Modified Allen's Test Pass; Site Drawn LEFT RADIAL
[2019-07-18 05:31] LABS: Arterial Blood Gas PEEP 5 cmH2O; Arterial Blood Gas Pressure Support 0 cmH2O; Arterial Blood Gas Tidal Volume 450 ml
[2019-07-18 05:44] LABS: Basophils Absolute Auto 0.1 K/mm3 (0.0-0.1); Basophils Percent Auto 0.4 % (0.2-1.2); Hematocrit 39.4 % (42.0-52.0); Hemoglobin 12.1 g/dL (14.0-18.0); Immature Granulocyte Absolute 0.44 K/mm3 (0.00-0.031); Immature Granulocyte Percent A 3.4 % (0-0.5); Lymphocytes Absolute Auto 0.37 K/mm3 (0.9-3.2); Lymphocytes Percent Auto 2.9 % (18.3-44.2); Mean Corpuscular HGB Conc 30.7 g/dl (32-36); Mean Corpuscular Hemoglobin 27.8 pg (26-34); Mean Corpuscular Volume 90.6 fl (80-100); Mean Platelet Volume 10.4 fl (7.4-10.4); Monocytes Absolute Auto 0.5 K/mm3 (0.1-0.6); Neutrophils Absolute Auto 11.4 K/mm3 (1.3-6.7); Neutrophils Percent Auto 89.3 % (45.5-73.1); Nucleated Red Blood Cells Perc 0.2 % (0.0-0.2); Platelet Count Result 408 k/mm3 (150-375); Red Blood Count 4.35 M/mm3 (4.6-6.20); Red Cell Distribution Width 14.3 % (11.5-14.5); White Blood Count 12.8 K/mm3 (4.5-10.0)
--- NOTE | 2019-07-18 07:00 | WPDINTPN ---
Progress Note: A&P Assessment and Plan (1) Acute and chronic respiratory failure: Qualifiers: Respiratory failure complication: hypoxia and hypercapnia Qualified Code(s): J96.21 - Acute and chronic respiratory failure with hypoxia; J96.22 - Acute and chronic respiratory failure with hypercapnia Code(s): J96.20 - Acute and chronic respiratory failure, unspecified whether with hypoxia or hypercapnia Status: Acute Assessment and Plan: acute hypercapnic respiratory failure likely secondary to COPD exacerbation and pneumonia. - Patient was intubated on 07/15/2019 secondary to unresponsive at the outside hospital in [facility] with a pCO2 level of 127 on the ABG - chest x-ray and ABGs reviewed - patient on ceftriaxone and azithromycin - continue albuterol and Atrovent nebulized - continue Solu-Medrol. changed to q.12 hours - sedated with fentanyl and Precedex infusion, maintain RASS of 0 to -2, daily sedation vacation. was discontinued - continueLasix for pulmonary edema. - IV fluids discontinued yesterday. - I would try spontaneous breathing trial today (2) COPD exacerbation: Code(s): J44.1 - Chronic obstructive pulmonary disease with (acute) exacerbation Status: Acute Assessment and Plan: continue mechanical ventilation, steroids, antibiotics and bronchodilators (3) Pneumonia: Qualifiers: Laterality: left Lung location: lower lobe of lung Pneumonia type: due to unspecified organism Qualified Code(s): J18.9 - Pneumonia, unspecified organism Code(s): J18.9 - Pneumonia, unspecified organism Status: Acute Assessment and Plan: bilateral infiltrates, likely pneumonia versus pulmonary edema - blood cultures have been obtained - continue antibiotics as above (4) Acute kidney injury: Code(s): N17.9 - Acute kidney failure, unspecified Status: Acute Assessment and Plan: patient with elevated creatinine, baseline creatinine is 1.1-1.2 - was on maintenance IV fluids, creatinine improved - patient now developing volume overload hence will IV fluids and continue tube feeding. - Creatinine appears to have normalized - continue to monitor urine output, electrolytes and renal function (5) Diabetes mellitus: Qualifiers: Diabetes mellitus type: type 2 Diabetes mellitus jail insulin use: with shoe repairman use Diabetes mellitus complication status: with hyperglycemia Qualified Code(s): E11.65 - Type 2 diabetes mellitus with hyperglycemia; Z79.4 - psychological assistant (current) use of insulin Code(s): E11.9 - Type 2 diabetes mellitus without complications Status: Acute Assessment and Plan: continue Accu-Cheks and sliding scale insulin continue Lantus (6) Diastolic heart failure: Qualifiers: Heart failure chronicity: chronic Qualified Code(s): I50.32 - Chronic diastolic (congestive) heart failure Code(s): I50.30 - Unspecified diastolic (congestive) heart failure Status: Acute Assessment and Plan: Patient with history of diastolic dysfunction, echocardiogram report pending ECHO Summary 1. Left ventricular systolic function is normal, estimated at 60-65%. 2. There is mildly increased left ventricular wall thickness. 3. The left ventricular diastolic function is grade I diastolic dysfunction. 4. Right ventricular chamber dimension is moderately enlarged. 5. Right atrial chamber dimension is mildly enlarged. - chest x-ray shows pulmonary vascular congestion - discontinued IV fluids and continue Lasix for pulmonary edema (7) Tobacco dependence: Code(s): F17.200 - Nicotine dependence, unspecified, uncomplicated Status: Acute Assessment and Plan: patient continues to smoke, states he is stubborn and does not want to quit but has decreased cigarettes in the last 4 days when he was not feeling too well - will crisis counselor patient on
[2019-07-18] MEDS: DORNASE ALFA INH SOLN 1 MG/ML 2.5 ML AMP 2.5 MG INHALATION ×2 (07:41→20:27)
[2019-07-18] MEDS: FUROSEMIDE INJ 40 MG/4 ML VIAL IV PUSH (07:51)
--- NOTE | 2019-07-18 08:10 | PM.IMPN ---
Progress Note: A&P Assessment and Plan (1) Acute and chronic respiratory failure: Qualifiers: Respiratory failure complication: hypoxia and hypercapnia Qualified Code(s): J96.21 - Acute and chronic respiratory failure with hypoxia; J96.22 - Acute and chronic respiratory failure with hypercapnia Code(s): J96.20 - Acute and chronic respiratory failure, unspecified whether with hypoxia or hypercapnia Status: Acute Assessment and Plan: Result of pneumonia and COPD exacerbation. Remains on ventilator. Ventilator management per engineer byproduct. Continue IV azithromycin and ceftriaxone. Continue nebulizer treatments along with Pulmozyme. Will continue to monitor. (2) Sepsis: Qualifiers: Acute respiratory failure type: unspecified Sepsis acute organ dysfunction status: with acute organ dysfunction Sepsis type: sepsis due to unspecified organism Severe sepsis acute organ dysfunction type: acute respiratory failure Severe sepsis shock status: without septic shock Qualified Code(s): A41.9 - Sepsis, unspecified organism; R65.20 - Severe sepsis without septic shock; J96.00 - Acute respiratory failure, unspecified whether with hypoxia or hypercapnia Code(s): A41.9 - Sepsis, unspecified organism Status: Acute Assessment and Plan: Criteria met on admission. Result of pneumonia. Continue IV antibiotics as noted above. Telemetry reviewed on 07/18/2019 with sinus rhythm. Blood pressure reviewed on 07/18/2019 and stable. MRSA nasal culture negative. Blood cultures negative to date. (3) Pneumonia: Qualifiers: Laterality: left Lung location: lower lobe of lung Pneumonia type: due to unspecified organism Qualified Code(s): J18.9 - Pneumonia, unspecified organism Code(s): J18.9 - Pneumonia, unspecified organism Status: Acute Assessment and Plan: Imaging on admission with findings consistent with left-sided pneumonia. Continue IV antibiotics and other respiratory treatments as noted above. (4) COPD exacerbation: Code(s): J44.1 - Chronic obstructive pulmonary disease with (acute) exacerbation Status: Acute Assessment and Plan: Continue respiratory treatments as noted above. Additionally remains on IV steroids. (5) Acute kidney injury: Code(s): N17.9 - Acute kidney failure, unspecified Status: Acute Assessment and Plan: Creatinine elevated to 1.67 on admission. Now back down to 1.20 today. Will continue to monitor with treatment of infections. Continue to avoid nephrotoxic agents. (6) Diabetes mellitus: Qualifiers: Diabetes mellitus complication status: with hyperglycemia Diabetes mellitus tank terminal gauger insulin use: with tank terminal gauger use Diabetes mellitus type: type 2 Qualified Code(s): E11.65 - Type 2 diabetes mellitus with hyperglycemia; Z79.4 - termite control technician (current) use of insulin Code(s): E11.9 - Type 2 diabetes mellitus without complications Status: Acute Assessment and Plan: Hemoglobin A1c 6.5. Glucose reviewed on 07/18/2019 and stable. Will continue Lantus with sliding scale insulin available as needed. Will continue to monitor. (7) Diastolic heart failure: Qualifiers: Heart failure chronicity: chronic Qualified Code(s): I50.32 - Chronic diastolic (congestive) heart failure Code(s): I50.30 - Unspecified diastolic (congestive) heart failure Status: Acute Assessment and Plan: Imaging still with mild interstitial edema. Echocardiogram on 07/15/2019 with EF 60-65%, diastolic dysfunction grade 1 and moderate RV enlargement. Will continue to monitor. (8) Hypertension: Qualifiers: Hypertension type: essential hypertension Qualified Code(s): I10 - Essential (primary) hypertension Code(s): I10 - Essential (primary) hypertension Status: Acute Assessment and Plan: Blood pressure reviewed on 07/18/2019 and acceptable. Home meto
[2019-07-18] MEDS: methylPREDNISolone SOD SUCC 125 MG VIAL 60 MG IV PUSH ×2 (08:28→20:21)
[2019-07-18] MEDS: ENOXAPARIN 40 MG/0.4 ML SYRINGE SUB-Q (08:28)
[2019-07-18] MEDS: PANTOPRAZOLE SODIUM IV 40 MG VIAL IV PUSH (08:28)
[2019-07-18] MEDS: INSULIN GLARGINE (*BKC) 100 UNITS/ML 20 UNITS SUB-Q (08:29)
[2019-07-18 09:10] LABS: Alveolar/Arterial O2 Gradient 222.2 mmHg; Base Excess ABG 9.3 mEq/l (+/-2.0); Fractional Inspired Oxygen 50 %; HCO3 ABG 37.1 mEq/l (22.0-26.0); Oxygen Content ABG 16.4 %vol (16.0-22.0); Oxygen Saturation ABG 89.7 % (95.0-100.0); Oxyhemoglobin 87.9 % THb (90.0-100.0); PO2 ABG 60.5 mmHg (80.0-100.0); PO2 FiO2 Ratio Arterial Blood 1.21 %; Total Hemoglobin 13.3 g/dL (12.0-18.0)
[2019-07-18 09:11] LABS: Arterial Blood Gas PEEP 5 cmH2O; Arterial Blood Gas Pressure Support 5 cmH2O; Arterial Blood Gas Vent Mode SPONTANEOUS; Device VENTILATOR; Modified Allen's Test Pass; PCO2 ABG 65.6 mmHg (35.0-45.0); Site Drawn LEFT RADIAL
--- NOTE | 2019-07-18 11:30 | PCDIET ---
Nutrition Follow-Up Complete: Nutrition Diagnosis: Inadequate oral intake related to oral intubation as evidenced by need for enteral feedings. Nutrition Goal: Patient to meet estimated nutritional needs. Goal in progress. Tube feedings held today for possible extubation; however, it has been determined that patient will not be extubated, and MD ordered to re-start tube feedings. Recommend goal rate of 65mL/hr Glucerna 1.2. Last recorded weight is 100.8 kg which is decreased, despite +I/O. Bowel Motility: No documented bowel movements this admission. Labs Reviewed: Glu (221), BUN (46), Na (134), Hgb (12.1), Hct (39.4) Meds Noted: Albuterol, Precedex, Fentanyl, Novolog, Lantus, Solu Medrol, Protonix Additional Notes: No documented skin breakdown. Will continue to monitor with same goal. Nutrition Monitoring and Evaluation: Follow up every Wednesday/Wednesday. Follow daily in ICU rounds.
[2019-07-18] MEDS: LORAZEPAM INJ 2 MG/ML VIAL (11:48)
[2019-07-18 11:59] LABS: Glucose Point of Care 267 (65-105)
[2019-07-18 17:43] LABS: Glucose Point of Care 261 (65-105)
--- NOTE | 2019-07-18 22:47 | PC.NURSE ---
Patient is thrashing in bed, trying to self extubate. Dr. Camacho notified of current sedation and vital signs. Start low dose propofol.
[2019-07-18] MEDS: PROPOFOL IV EMULSION 100 ML 3 MG IV CONT (22:52)
[2019-07-18 23:49] LABS: Glucose Point of Care 287 (65-105)
[2019-07-19] VITALS (31 sets, daily range): BP systolic 100–153; BP diastolic 54–101; PULSE 58–121; RESP 18–25; TEMP 36.8–37.3; O2SAT 90–96
[2019-07-19] MEDS: ALBUTEROL SULFATE NEB 2.5 MG/0.5 ML INH INHALATION ×4 (03:11→19:40)
[2019-07-19] MEDS: IPRATROPIUM BR 0.02% INH SOLN 0.5 MG/2.5 ML VIAL INHALATION ×4 (03:11→19:40)
[2019-07-19 04:46] LABS: Basophils Absolute Auto 0.1 K/mm3 (0.0-0.1); Basophils Percent Auto 0.3 % (0.2-1.2); Hematocrit 40.8 % (42.0-52.0); Hemoglobin 12.8 g/dL (14.0-18.0); Immature Granulocyte Absolute 0.62 K/mm3 (0.00-0.031); Immature Granulocyte Percent A 4.1 % (0-0.5); Lymphocytes Absolute Auto 0.65 K/mm3 (0.9-3.2); Lymphocytes Percent Auto 4.3 % (18.3-44.2); Mean Corpuscular HGB Conc 31.4 g/dl (32-36); Mean Corpuscular Hemoglobin 28.2 pg (26-34); Mean Corpuscular Volume 89.9 fl (80-100); Mean Platelet Volume 10.4 fl (7.4-10.4); Monocytes Percent Auto 6.3 % (2.6-8.5); Neutrophils Absolute Auto 12.8 K/mm3 (1.3-6.7); Nucleated Red Blood Cells Perc 0.1 % (0.0-0.2); Platelet Count Result 354 k/mm3 (150-375); Red Blood Count 4.54 M/mm3 (4.6-6.20); Red Cell Distribution Width 14.2 % (11.5-14.5); White Blood Count 15.1 K/mm3 (4.5-10.0)
[2019-07-19 05:06] LABS: Blood Urea Nitrogen 40 mg/dL (9-20); Calcium 9.3 mg/dL (8.4-10.2); Carbon Dioxide > 40 mmol/L (22-30); Chloride 86 mmol/L (98-107); Estimated CRCL calculation 67 ml/min; Estimated Glomerular Filt Rate > 60; Glucose 295 mg/dL (75-110); Magnesium 1.6 mg/dL (1.6-2.3); Phosphorus 3.2 mg/dL (2.5-4.5); Potassium 3.7 mmol/L (3.4-5.0); Sodium 131 mmol/L (137-145)
[2019-07-19 05:11] LABS: Base Excess ABG 11.7 mEq/l (+/-2.0); Carboxyhemoglobin 0.5 % THb (0-2.0); Fractional Inspired Oxygen 45 %; HCO3 ABG 37.6 mEq/l (22.0-26.0); Methemoglobin ABG 0.4 %THb (0-1.5); Oxygen Content ABG 18.6 %vol (16.0-22.0); Oxygen Saturation ABG 91.6 % (95.0-100.0); Oxyhemoglobin 89.4 % THb (90.0-100.0); PCO2 ABG 53.4 mmHg (35.0-45.0); PO2 ABG 59.1 mmHg (80.0-100.0); PO2 FiO2 Ratio Arterial Blood 1.31 %; Reduced Hemoglobin 9.7 %THb (0-5.0); Total Hemoglobin 14.8 g/dL (12.0-18.0); pH ABG 7.466 (7.350-7.450)
[2019-07-19 05:13] LABS: Arterial Blood Gas Ventilator rate 20 /MIN; Device VENTILATOR; Modified Allen's Test Pass; Site Drawn RIGHT RADIAL
[2019-07-19 05:14] LABS: Arterial Blood Gas PEEP 5 cmH2O; Arterial Blood Gas Pressure Support 0 cmH2O; Arterial Blood Gas Tidal Volume 450 ml; Arterial Blood Gas Vent Mode CMV
[2019-07-19] MEDS: INSULIN ASPART (*BKC) 100 UNITS/ML SUB-Q ×3 (05:21→18:30)
--- NOTE | 2019-07-19 07:30 | WPDINTPN ---
Progress Note: A&P Assessment and Plan (1) Acute and chronic respiratory failure: Qualifiers: Respiratory failure complication: hypoxia and hypercapnia Qualified Code(s): J96.21 - Acute and chronic respiratory failure with hypoxia; J96.22 - Acute and chronic respiratory failure with hypercapnia Code(s): J96.20 - Acute and chronic respiratory failure, unspecified whether with hypoxia or hypercapnia Status: Acute Assessment and Plan: acute hypercapnic respiratory failure likely secondary to COPD exacerbation and pneumonia. - Patient was intubated on 07/15/2019 secondary to unresponsive at the outside hospital in [facility] with a pCO2 level of 127 on the ABG - chest x-ray and ABGs reviewed - patient on ceftriaxone and azithromycin - continue albuterol and Atrovent nebulized - continue Solu-Medrol. changed to q.12 hours - sedated with propofol, fentanyl and Precedex infusion, maintain RASS of 0 to -2, daily sedation vacation. was discontinued - patient was given Lasix for pulmonary edema. hold further diuresis at this time as chest x-ray appears clear - IV fluids discontinued - I would try spontaneous breathing trial today - patient appears to have severe COPD and even if extubated will need BiPAP or even re-intubation if fails (2) COPD exacerbation: Code(s): J44.1 - Chronic obstructive pulmonary disease with (acute) exacerbation Status: Acute Assessment and Plan: continue mechanical ventilation, steroids, antibiotics and bronchodilators (3) Pneumonia: Qualifiers: Laterality: left Lung location: lower lobe of lung Pneumonia type: due to unspecified organism Qualified Code(s): J18.9 - Pneumonia, unspecified organism Code(s): J18.9 - Pneumonia, unspecified organism Status: Acute Assessment and Plan: bilateral infiltrates, likely pneumonia versus pulmonary edema - blood cultures have been obtained - continue antibiotics as above (4) Acute kidney injury: Code(s): N17.9 - Acute kidney failure, unspecified Status: Acute Assessment and Plan: patient with elevated creatinine, baseline creatinine is 1.1-1.2 - was on maintenance IV fluids, creatinine improved - patient now developing volume overload hence will IV fluids and continue tube feeding. - Creatinine appears to have normalized - continue to monitor urine output, electrolytes and renal function (5) Diabetes mellitus: Qualifiers: Diabetes mellitus type: type 2 Diabetes mellitus prison insulin use: with prison use Diabetes mellitus complication status: with hyperglycemia Qualified Code(s): E11.65 - Type 2 diabetes mellitus with hyperglycemia; Z79.4 - snf (current) use of insulin Code(s): E11.9 - Type 2 diabetes mellitus without complications Status: Acute Assessment and Plan: uncontrolled continue Accu-Cheks and sliding scale insulin continue Lantus but increase the dose (6) Diastolic heart failure: Qualifiers: Heart failure chronicity: chronic Qualified Code(s): I50.32 - Chronic diastolic (congestive) heart failure Code(s): I50.30 - Unspecified diastolic (congestive) heart failure Status: Acute Assessment and Plan: Patient with history of diastolic dysfunction, echocardiogram report pending ECHO Summary 1. Left ventricular systolic function is normal, estimated at 60-65%. 2. There is mildly increased left ventricular wall thickness. 3. The left ventricular diastolic function is grade I diastolic dysfunction. 4. Right ventricular chamber dimension is moderately enlarged. 5. Right atrial chamber dimension is mildly enlarged. - chest x-ray shows pulmonary vascular congestion - discontinued IV fluids and continue Lasix for pulmonary edema (7) Tobacco dependence: Code(s): F17.200 - Nicotine dependence, unspecified, uncomplicated Status: A
[2019-07-19] MEDS: DORNASE ALFA INH SOLN 1 MG/ML 2.5 ML AMP 2.5 MG INHALATION (08:00)
--- NOTE | 2019-07-19 08:01 | PM.IMPN ---
Progress Note: A&P Assessment and Plan (1) Acute and chronic respiratory failure: Qualifiers: Respiratory failure complication: hypoxia and hypercapnia Qualified Code(s): J96.21 - Acute and chronic respiratory failure with hypoxia; J96.22 - Acute and chronic respiratory failure with hypercapnia Code(s): J96.20 - Acute and chronic respiratory failure, unspecified whether with hypoxia or hypercapnia Status: Acute Assessment and Plan: Result of pneumonia and COPD exacerbation. Remains on ventilator. Ventilator management per natural gas shothole driller. Discussed with natural gas shothole driller today. Plan for breathing trial. Willb continue IV azithromycin and ceftriaxone. Continue nebulizer treatments along with Pulmozyme. Will continue to monitor. (2) Sepsis: Qualifiers: Sepsis type: sepsis due to unspecified organism Sepsis acute organ dysfunction status: with acute organ dysfunction Severe sepsis acute organ dysfunction type: acute respiratory failure Acute respiratory failure type: unspecified Severe sepsis shock status: without septic shock Qualified Code(s): A41.9 - Sepsis, unspecified organism; R65.20 - Severe sepsis without septic shock; J96.00 - Acute respiratory failure, unspecified whether with hypoxia or hypercapnia Code(s): A41.9 - Sepsis, unspecified organism Status: Acute Assessment and Plan: Criteria met on admission. Result of pneumonia. Continue IV antibiotics as noted above. Telemetry reviewed on 07/19/2019 with sinus rhythm. Blood pressure reviewed on 07/19/2019 and remains stable. MRSA nasal culture negative. Blood cultures negative to date. WBC 15.1 today. (3) Pneumonia: Qualifiers: Laterality: left Lung location: lower lobe of lung Pneumonia type: due to unspecified organism Qualified Code(s): J18.9 - Pneumonia, unspecified organism Code(s): J18.9 - Pneumonia, unspecified organism Status: Acute Assessment and Plan: Imaging on admission with findings consistent with left-sided pneumonia. Personally reviewed today, 07/19/2019, with improvement of previous congestive changes. Continue IV antibiotics and other respiratory treatments as noted above. (4) COPD exacerbation: Code(s): J44.1 - Chronic obstructive pulmonary disease with (acute) exacerbation Status: Acute Assessment and Plan: Continue respiratory treatments as noted above. Conitnue IV steroids. (5) Acute kidney injury: Code(s): N17.9 - Acute kidney failure, unspecified Status: Acute Assessment and Plan: Creatinine elevated to 1.67 on admission. Creatinine improved to 1.00 today. Will continue to monitor with treatment of infections. Continue to avoid nephrotoxic agents. (6) Diabetes mellitus: Qualifiers: Diabetes mellitus type: type 2 Diabetes mellitus petroleum terminal plant operator insulin use: with mcfp use Diabetes mellitus complication status: with hyperglycemia Qualified Code(s): E11.65 - Type 2 diabetes mellitus with hyperglycemia; Z79.4 - intermission coordinator (current) use of insulin Code(s): E11.9 - Type 2 diabetes mellitus without complications Status: Acute Assessment and Plan: Hemoglobin A1c 6.5. Glucose reviewed on 07/19/2019 with elevated readings but is on steroids. Will continue Lantus with sliding scale insulin available as needed. Adjust treatment as needed. Will continue to monitor. (7) Diastolic heart failure: Qualifiers: Heart failure chronicity: chronic Qualified Code(s): I50.32 - Chronic diastolic (congestive) heart failure Code(s): I50.30 - Unspecified diastolic (congestive) heart failure Status: Acute Assessment and Plan: Echocardiogram on 07/15/2019 with EF 60-65%, diastolic dysfunction grade 1 and moderate RV enlargement. Clinically stable at present time. Will continue to monitor. (8) Hypertension: Qualifiers: Hypertension type: essential hypertension Q
[2019-07-19] MEDS: PANTOPRAZOLE SODIUM IV 40 MG VIAL IV PUSH (08:19)
[2019-07-19] MEDS: methylPREDNISolone SOD SUCC 125 MG VIAL 60 MG IV PUSH ×2 (08:20→21:02)
[2019-07-19] MEDS: ENOXAPARIN 40 MG/0.4 ML SYRINGE SUB-Q (08:20)
[2019-07-19] MEDS: INSULIN GLARGINE (*BKC) 100 UNITS/ML 20 UNITS SUB-Q (08:25)
[2019-07-19 09:25] LABS: Glucose Point of Care 270 (65-105)
[2019-07-19] MEDS: INSULIN GLARGINE (*BKC) 100 UNITS/ML 10 UNITS SUB-Q (09:48)
[2019-07-19 10:05] LABS: Alveolar/Arterial O2 Gradient 205.1 mmHg; Base Excess ABG 9.6 mEq/l (+/-2.0); Fractional Inspired Oxygen 45 %; HCO3 ABG 34.1 mEq/l (22.0-26.0); Oxygen Content ABG 18.7 %vol (16.0-22.0); Oxygen Saturation ABG 93.9 % (95.0-100.0); Oxyhemoglobin 92.6 % THb (90.0-100.0); PCO2 ABG 45.4 mmHg (35.0-45.0); PO2 ABG 64.1 mmHg (80.0-100.0); PO2 FiO2 Ratio Arterial Blood 1.42 %; Total Hemoglobin 14.4 g/dL (12.0-18.0); pH ABG 7.494 (7.350-7.450)
[2019-07-19 10:06] LABS: Arterial Blood Gas PEEP 5 cmH2O; Arterial Blood Gas Pressure Support 5 cmH2O; Arterial Blood Gas Vent Mode SPONTANEOUS; Device VENTILATOR; Site Drawn RIGHT BRACHIAL
--- NOTE | 2019-07-19 11:22 | PM.EVENT ---
Event Note Event Note Event Note: / PSV SBT done for closed 1 are. ABG, Vitals and RSBI reviewed. chronic compensated hypercapnia and hypoxia. Patient often get agitated in between and then becomes to get but when calm RSBI acceptable. Patient has severe COPD at baseline.Will extubate pt to NC and Monitor. NPO for now. May need BiPAP. May need re-intubation if unable to tolerate BiPAP or if BiPAP is ineffective. Discussed in detail with patient's daughter at bedside.
--- NOTE | 2019-07-19 11:23 | PCDIET ---
ICU Rounding Note: Tube feedings on hold with MD order for extubation. OG will be removed with extubation. Plan for RN bedside swallow later today if patient does well. Last recorded weight is 97.7kg which is decreased. I/O negative. Bowel Motility: No documented bowel movement. Tube feedings had been well tolerated without significant residuals. Labs Reviewed: Glu (295), BUN (40), Na (131), Hgb (12.8), Hct (40.8) Meds Noted: Albuterol, Zithromax, Rocephin, Precedex, Fentanyl, Novolog, Lantus, Atrovent, Solu Medrol, Protonix Additional Notes: Propofol on hold. No reported skin breakdown. Following daily in ICU rounds. Assessing/reassessing every Wednesday/Wednesday.
[2019-07-19 11:39] LABS: Glucose Point of Care 281 (65-105)
[2019-07-19 18:03] LABS: Glucose Point of Care 217 (65-105)
[2019-07-19 23:12] LABS: Glucose Point of Care 194 (65-105)
[2019-07-20] VITALS (20 sets, daily range): BP systolic 130–166; BP diastolic 75–87; PULSE 10–110; RESP 16–25; TEMP 36.6–36.8; O2SAT 91–96
[2019-07-20] MEDS: IPRATROPIUM BR 0.02% INH SOLN 0.5 MG/2.5 ML VIAL INHALATION ×4 (01:25→20:28)
[2019-07-20] MEDS: ALBUTEROL SULFATE NEB 2.5 MG/0.5 ML INH INHALATION ×4 (01:25→20:29)
[2019-07-20 05:08] LABS: Hematocrit 40.9 % (42.0-52.0); Hemoglobin 12.7 g/dL (14.0-18.0); Mean Corpuscular HGB Conc 31.1 g/dl (32-36); Mean Corpuscular Volume 90.1 fl (80-100); Mean Platelet Volume 10.2 fl (7.4-10.4); Platelet Count Result 414 k/mm3 (150-375); Red Blood Count 4.54 M/mm3 (4.6-6.20); Red Cell Distribution Width 14.4 % (11.5-14.5); White Blood Count 22.2 K/mm3 (4.5-10.0)
[2019-07-20 05:26] LABS: Blood Urea Nitrogen 43 mg/dL (9-20); Calcium 9.6 mg/dL (8.4-10.2); Carbon Dioxide > 40 mmol/L (22-30); Chloride 88 mmol/L (98-107); Estimated CRCL calculation 72 ml/min; Estimated Glomerular Filt Rate > 60; Glucose 163 mg/dL (75-110); Magnesium 1.6 mg/dL (1.6-2.3); Phosphorus 3.1 mg/dL (2.5-4.5); Potassium 3.8 mmol/L (3.4-5.0); Sodium 134 mmol/L (137-145)
[2019-07-20] MEDS: methylPREDNISolone SOD SUCC 125 MG VIAL 60 MG IV PUSH (07:58)
[2019-07-20] MEDS: ENOXAPARIN 40 MG/0.4 ML SYRINGE SUB-Q (07:58)
[2019-07-20] MEDS: PANTOPRAZOLE SODIUM IV 40 MG VIAL IV PUSH (07:58)
[2019-07-20] MEDS: INSULIN GLARGINE (*BKC) 100 UNITS/ML 30 UNITS SUB-Q (07:59)
--- NOTE | 2019-07-20 08:02 | PM.IMPN ---
Progress Note: A&P Assessment and Plan (1) Acute and chronic respiratory failure: Qualifiers: Respiratory failure complication: hypoxia and hypercapnia Qualified Code(s): J96.21 - Acute and chronic respiratory failure with hypoxia; J96.22 - Acute and chronic respiratory failure with hypercapnia Code(s): J96.20 - Acute and chronic respiratory failure, unspecified whether with hypoxia or hypercapnia Status: Acute Assessment and Plan: Result of pneumonia and COPD exacerbation. Successfully extubated yesterday. Did not use BiPAP last night. On 6 L oxygen by nasal cannula today. Will continue IV azithromycin and ceftriaxone. Continue nebulizer treatments and Pulmozyme. Will transfer to medical floor stable. Discussed with substance addiction coordinator. Will start diet. Add PT/OT. (2) Sepsis: Qualifiers: Acute respiratory failure type: unspecified Sepsis acute organ dysfunction status: with acute organ dysfunction Sepsis type: sepsis due to unspecified organism Severe sepsis acute organ dysfunction type: acute respiratory failure Severe sepsis shock status: without septic shock Qualified Code(s): A41.9 - Sepsis, unspecified organism; R65.20 - Severe sepsis without septic shock; J96.00 - Acute respiratory failure, unspecified whether with hypoxia or hypercapnia Code(s): A41.9 - Sepsis, unspecified organism Status: Acute Assessment and Plan: Criteria met on admission. Result of pneumonia. Continue IV antibiotics as noted above. Telemetry reviewed on 07/20/2019 with sinus rhythm. Blood pressure reviewed on 07/20/2019 with mild elevation. MRSA nasal culture negative. Blood cultures negative to date. WBC increased to 22.2 but has been on steroids. (3) Pneumonia: Qualifiers: Laterality: left Lung location: lower lobe of lung Pneumonia type: due to unspecified organism Qualified Code(s): J18.9 - Pneumonia, unspecified organism Code(s): J18.9 - Pneumonia, unspecified organism Status: Acute Assessment and Plan: Imaging on admission with findings consistent with left-sided pneumonia. Continued improvement with residual infiltrates. Continue IV antibiotics other respiratory treatments as noted above. (4) COPD exacerbation: Code(s): J44.1 - Chronic obstructive pulmonary disease with (acute) exacerbation Status: Acute Assessment and Plan: Continue respiratory treatments as noted above. Conitnue IV steroids but will start weaning. Will resume home theophylline and montelukast. (5) Acute kidney injury: Code(s): N17.9 - Acute kidney failure, unspecified Status: Resolved Assessment and Plan: Creatinine elevated to 1.67 on admission. Creatinine now normal at 0.90 today. Will continue to monitor with treatment of infections. Continue to avoid nephrotoxic agents. (6) Diabetes mellitus: Qualifiers: Diabetes mellitus complication status: with hyperglycemia Diabetes mellitus retirement insulin use: with manager intermediate use Diabetes mellitus type: type 2 Qualified Code(s): E11.65 - Type 2 diabetes mellitus with hyperglycemia; Z79.4 - custodial (current) use of insulin Code(s): E11.9 - Type 2 diabetes mellitus without complications Status: Acute Assessment and Plan: Hemoglobin A1c 6.5. Glucose reviewed on 07/20/2019. Readings better today with advancement of Lantus yesterday. Continue current Lantus. Continue sliding scale insulin. Will continue to monitor and adjust treatment as needed. (7) Hypertension: Qualifiers: Hypertension type: essential hypertension Qualified Code(s): I10 - Essential (primary) hypertension Code(s): I10 - Essential (primary) hypertension Status: Acute Assessment and Plan: Blood pressure reviewed on 07/20/2019. Blood pressure readings now elevated. Will resume home metoprolol and verapamil. Will continue to monitor. (8) Diastolic heart failur
--- NOTE | 2019-07-20 08:30 | WPDINTPN ---
Progress Note: A&P Assessment and Plan (1) Acute and chronic respiratory failure: Qualifiers: Respiratory failure complication: hypoxia and hypercapnia Qualified Code(s): J96.21 - Acute and chronic respiratory failure with hypoxia; J96.22 - Acute and chronic respiratory failure with hypercapnia Code(s): J96.20 - Acute and chronic respiratory failure, unspecified whether with hypoxia or hypercapnia Status: Acute Assessment and Plan: acute hypercapnic respiratory failure likely secondary to COPD exacerbation and pneumonia. - Patient was intubated on 07/15/2019 secondary to unresponsive at the outside hospital in [facility] with a pCO2 level of 127 on the ABG - 07/18 5 PSV SBT done. ABG, Vitals and RSBI reviewed. chronic compensated hypercapnia and hypoxia. patient was extubated. Patient has done well on nasal cannula since yesterday. - chest x-ray and ABGs reviewed - patient on ceftriaxone and azithromycin - continue albuterol and Atrovent nebulized - continue Solu-Medrol. changed to Daily (2) COPD exacerbation: Code(s): J44.1 - Chronic obstructive pulmonary disease with (acute) exacerbation Status: Acute Assessment and Plan: continue mechanical ventilation, steroids, antibiotics and bronchodilators (3) Pneumonia: Qualifiers: Laterality: left Lung location: lower lobe of lung Pneumonia type: due to unspecified organism Qualified Code(s): J18.9 - Pneumonia, unspecified organism Code(s): J18.9 - Pneumonia, unspecified organism Status: Acute Assessment and Plan: bilateral infiltrates, likely pneumonia versus pulmonary edema - blood cultures have been obtained and negative - continue antibiotics as above (4) Acute kidney injury: Code(s): N17.9 - Acute kidney failure, unspecified Status: Resolved Assessment and Plan: patient with elevated creatinine, baseline creatinine is 1.1-1.2 - was on maintenance IV fluids, creatinine improved - patient now developing volume overload hence will IV fluids and continue tube feeding. - Creatinine appears to have normalized - continue to monitor urine output, electrolytes and renal function (5) Diabetes mellitus: Qualifiers: Diabetes mellitus type: type 2 Diabetes mellitus cover maker insulin use: with cover maker use Diabetes mellitus complication status: with hyperglycemia Qualified Code(s): E11.65 - Type 2 diabetes mellitus with hyperglycemia; Z79.4 - snack stewardess (current) use of insulin Code(s): E11.9 - Type 2 diabetes mellitus without complications Status: Acute Assessment and Plan: continue Accu-Cheks and sliding scale insulin continue Lantus (6) Diastolic heart failure: Qualifiers: Heart failure chronicity: chronic Qualified Code(s): I50.32 - Chronic diastolic (congestive) heart failure Code(s): I50.30 - Unspecified diastolic (congestive) heart failure Status: Acute Assessment and Plan: Patient with history of diastolic dysfunction, echocardiogram report pending ECHO Summary 1. Left ventricular systolic function is normal, estimated at 60-65%. 2. There is mildly increased left ventricular wall thickness. 3. The left ventricular diastolic function is grade I diastolic dysfunction. 4. Right ventricular chamber dimension is moderately enlarged. 5. Right atrial chamber dimension is mildly enlarged. patient has been receiving Lasix as needed (7) Tobacco dependence: Code(s): F17.200 - Nicotine dependence, unspecified, uncomplicated Status: Acute Assessment and Plan: patient counseled to quit (8) Hypertension: Qualifiers: Hypertension type: essential hypertension Qualified Code(s): I10 - Essential (primary) hypertension Code(s): I10 - Essential (primary) hypertension Status: Acute Assessment and Plan: will hold antihypertensives
[2019-07-20] MEDS: busPIRone HCL 5 MG TABLET 15 MG PO ×2 (10:21→20:27)
[2019-07-20] MEDS: METOPROLOL TARTRATE 25 MG TABLET PO ×2 (10:21→20:28)
[2019-07-20] MEDS: ASPIRIN 81 MG ENTERIC TABLET PO (10:22)
[2019-07-20] MEDS: CHOLECALCIFEROL 1,000 UNIT TABLET 1000 UNITS PO (10:22)
[2019-07-20] MEDS: GABAPENTIN 100 MG CAPSULE PO ×3 (10:22→17:24)
[2019-07-20] MEDS: MONTELUKAST SODIUM 10 MG TABLET PO (10:22)
[2019-07-20] MEDS: THEOPHYLLINE ANHYDROUS 200 MG CAP.ER.24H 400 MG PO (10:22)
[2019-07-20] MEDS: MAGNESIUM OXIDE 400 MG TABLET PO ×2 (10:22→20:27)
[2019-07-20] MEDS: VERAPAMIL HCL 180 MG TABLET ER PO (10:23)
[2019-07-20] MEDS: ESCITALOPRAM OXALATE 10 MG TABLET 20 MG BY MOUTH (10:23)
[2019-07-20] MEDS: BENZONATATE 100 MG CAPSULE 200 MG PO ×2 (10:23→17:24)
--- NOTE | 2019-07-20 11:43 | PCDIET ---
Nutrition Follow-Up Complete: Nutrition Diagnosis: Inadequate oral intake related to oral intubation as evidenced by need for enteral feedings. Nutrition Goal: Patient to meet estimated nutritional needs. Goal in progress. Patient extubated and diet has been advanced today. No trouble swallowing reported. Last recorded weight is 93 kg which is decreased. -I/O noted. Bowel Motility: +BM today. Labs Reviewed: Glu (163), BUN (43), Na (134), Hgb (12.7), Hct (40.9) Meds Noted: Albuterol, Rocephin, Precedex, Solu Medrol, Novolog, Lantus, Atrovent, Protonix Additional Notes: No documented skin breakdown. Agree with diabetic diet. If intakes adequate, would also consider sodium restriction in the future. Will continue to monitor with same goal. Nutrition Monitoring and Evaluation: Follow up every 5 days.
[2019-07-20 12:09] LABS: Glucose Point of Care 205 (65-105)
[2019-07-20] MEDS: INSULIN ASPART (*BKC) 100 UNITS/ML SUB-Q (12:13)
[2019-07-20 17:02] LABS: Glucose Point of Care 189 (65-105)
--- NOTE | 2019-07-20 17:15 | PC.NURSE ---
This patient, Mike Dumont, was received from ICU/2 on 07/20/19 at 1715. Personal belongings list checked and signed. Patient/family oriented to unit policies and routines
[2019-07-21] VITALS (13 sets, daily range): BP systolic 132–157; BP diastolic 66–81; PULSE 82–103; RESP 18–22; TEMP 36.8–37.3; O2SAT 90–99
[2019-07-21] MEDS: ALBUTEROL SULFATE NEB 2.5 MG/0.5 ML INH INHALATION ×4 (02:10→19:25)
[2019-07-21] MEDS: IPRATROPIUM BR 0.02% INH SOLN 0.5 MG/2.5 ML VIAL INHALATION ×4 (02:10→19:25)
[2019-07-21 02:54] LABS: Glucose Point of Care 196 (65-105)
[2019-07-21 05:11] LABS: Hemoglobin 12.4 g/dL (14.0-18.0); Mean Corpuscular Hemoglobin 28.2 pg (26-34); Mean Corpuscular Volume 90.9 fl (80-100); Platelet Count Result 407 k/mm3 (150-375); Red Cell Distribution Width 14.4 % (11.5-14.5); White Blood Count 20.8 K/mm3 (4.5-10.0)
[2019-07-21 05:33] LABS: Blood Urea Nitrogen 40 mg/dL (9-20); Calcium 9.4 mg/dL (8.4-10.2); Carbon Dioxide > 40 mmol/L (22-30); Chloride 89 mmol/L (98-107); Estimated CRCL calculation 72 ml/min; Estimated Glomerular Filt Rate > 60; Glucose 65 mg/dL (75-110); Magnesium 1.6 mg/dL (1.6-2.3); Potassium 3.2 mmol/L (3.4-5.0); Sodium 134 mmol/L (137-145)
[2019-07-21 07:30] LABS: Glucose Point of Care 58 (65-105)
--- NOTE | 2019-07-21 07:51 | PC.NURSE ---
Addendum entered by Rina Clemens RN 07/21/19 07:52: Time of BG check was 0716 07/21/2019. Original Note: Patient's BG 58 and refusing glucose gel. Apple juice given to patient for low blood glucose. Will recheck value and encouraged patient to eat breakfast tray.
[2019-07-21] MEDS: ASPIRIN 81 MG ENTERIC TABLET PO (07:59)
[2019-07-21] MEDS: POTASSIUM CHLORIDE 20 MEQ TABLET 40 MEQ PO (07:59)
[2019-07-21] MEDS: GABAPENTIN 100 MG CAPSULE PO ×3 (08:00→16:19)
[2019-07-21] MEDS: MAGNESIUM OXIDE 400 MG TABLET PO ×2 (08:01→21:18)
[2019-07-21] MEDS: CHOLECALCIFEROL 1,000 UNIT TABLET 1000 UNITS PO (08:01)
[2019-07-21] MEDS: THEOPHYLLINE ANHYDROUS 200 MG CAP.ER.24H 400 MG PO (08:01)
[2019-07-21] MEDS: MONTELUKAST SODIUM 10 MG TABLET PO (08:01)
[2019-07-21] MEDS: busPIRone HCL 5 MG TABLET 15 MG PO ×2 (08:01→21:18)
[2019-07-21] MEDS: ESCITALOPRAM OXALATE 10 MG TABLET 20 MG BY MOUTH (08:01)
--- NOTE | 2019-07-21 08:01 | PC.NURSE ---
Called pharmacy and requested 0900 lovenox and tessalon perles be sent to floor for administration.
[2019-07-21] MEDS: PANTOPRAZOLE SODIUM IV 40 MG VIAL IV PUSH (08:02)
[2019-07-21] MEDS: VERAPAMIL HCL 180 MG TABLET ER PO (08:02)
[2019-07-21] MEDS: METOPROLOL TARTRATE 25 MG TABLET PO ×2 (08:02→21:17)
[2019-07-21] MEDS: ENOXAPARIN 40 MG/0.4 ML SYRINGE SUB-Q (09:06)
[2019-07-21] MEDS: BENZONATATE 100 MG CAPSULE 200 MG PO ×3 (09:06→16:19)
[2019-07-21 09:29] LABS: Glucose Point of Care 105 (65-105)
[2019-07-21 12:47] LABS: Glucose Point of Care 113 (65-105)
--- NOTE | 2019-07-21 12:54 | PM.IMPN ---
Progress Note: A&P Assessment and Plan (1) Acute and chronic respiratory failure: Qualifiers: Respiratory failure complication: hypoxia and hypercapnia Qualified Code(s): J96.21 - Acute and chronic respiratory failure with hypoxia; J96.22 - Acute and chronic respiratory failure with hypercapnia Code(s): J96.20 - Acute and chronic respiratory failure, unspecified whether with hypoxia or hypercapnia Status: Acute Assessment and Plan: Result of pneumonia and COPD exacerbation. Successfully extubated on 07/19/2019. Has now weaned down to 5 L high-flow oxygen. Normally on 4 L oxygen at home. Advised patient would prefer he stay in hospital today continue weaning oxygen with treatments. Continue IV azithromycin and ceftriaxone. Continue nebulizer treatments and Pulmozyme. Continue PT/OT. Hopefully home this weekend. Discontinue [place]za catheter today. (2) Sepsis: Qualifiers: Acute respiratory failure type: unspecified Sepsis acute organ dysfunction status: with acute organ dysfunction Sepsis type: sepsis due to unspecified organism Severe sepsis acute organ dysfunction type: acute respiratory failure Severe sepsis shock status: without septic shock Qualified Code(s): A41.9 - Sepsis, unspecified organism; R65.20 - Severe sepsis without septic shock; J96.00 - Acute respiratory failure, unspecified whether with hypoxia or hypercapnia Code(s): A41.9 - Sepsis, unspecified organism Status: Acute Assessment and Plan: Criteria met on admission. Result of pneumonia. Continue IV antibiotics as noted above. Blood pressure reviewed on 07/21/2019 with mild elevation. MRSA nasal culture negative. Blood cultures negative to date. WBC decreased to 20.8 today. (3) Pneumonia: Qualifiers: Laterality: left Lung location: lower lobe of lung Pneumonia type: due to unspecified organism Qualified Code(s): J18.9 - Pneumonia, unspecified organism Code(s): J18.9 - Pneumonia, unspecified organism Status: Acute Assessment and Plan: Imaging on admission with findings consistent with left-sided pneumonia. Clinically improving. Continue IV antibiotics other respiratory treatments as noted above. (4) COPD exacerbation: Code(s): J44.1 - Chronic obstructive pulmonary disease with (acute) exacerbation Status: Acute Assessment and Plan: Continue respiratory treatments as noted above. Was on IV steroids but now discontinued. Continue home theophylline and montelukast in addition to respiratory treatments as noted above. (5) Hypokalemia: Code(s): E87.6 - Hypokalemia Status: Acute Assessment and Plan: Potassium 3.2 today with oral potassium given. Will continue to monitor and replace as needed. (6) Acute kidney injury: Code(s): N17.9 - Acute kidney failure, unspecified Status: Resolved Assessment and Plan: Creatinine elevated to 1.67 on admission. Creatinine remains normal at 0.90 today. Will continue to monitor with treatment of infections. Continue to avoid nephrotoxic agents. (7) Diabetes mellitus: Qualifiers: Diabetes mellitus complication status: with hyperglycemia Diabetes mellitus intermission coordinator insulin use: with intermission coordinator use Diabetes mellitus type: type 2 Qualified Code(s): E11.65 - Type 2 diabetes mellitus with hyperglycemia; Z79.4 - [employer] (current) use of insulin Code(s): E11.9 - Type 2 diabetes mellitus without complications Status: Acute Assessment and Plan: Hemoglobin A1c 6.5. Glucose reviewed on 07/21/2019. Glucose lower end of normal this morning. Will decrease Lantus. Continue sliding scale insulin. Will continue to monitor and adjust treatment as needed. (8) Hypertension: Qualifiers: Hypertension type: essential hypertension Qualified Code(s): I10 - Essential (primary) hypertension Code(s): I10 - Essential (primary) hypertension
[2019-07-21 17:43] LABS: Glucose Point of Care 122 (65-105)
[2019-07-21 22:10] LABS: Glucose Point of Care 199 (65-105)
[2019-07-22] VITALS (16 sets, daily range): BP systolic 100–135; BP diastolic 64–82; PULSE 76–96; RESP 20–22; TEMP 36.6–37.2; O2SAT 79–96
[2019-07-22] MEDS: IPRATROPIUM BR 0.02% INH SOLN 0.5 MG/2.5 ML VIAL INHALATION ×2 (01:25→09:24)
[2019-07-22] MEDS: ALBUTEROL SULFATE NEB 2.5 MG/0.5 ML INH INHALATION ×2 (01:25→09:24)
[2019-07-22 05:35] LABS: Hematocrit 41.2 % (42.0-52.0); Hemoglobin 12.4 g/dL (14.0-18.0); Mean Corpuscular HGB Conc 30.1 g/dl (32-36); Mean Corpuscular Hemoglobin 28.2 pg (26-34); Mean Corpuscular Volume 93.6 fl (80-100); Mean Platelet Volume 10.3 fl (7.4-10.4); Platelet Count Result 376 k/mm3 (150-375); Red Cell Distribution Width 14.3 % (11.5-14.5); White Blood Count 14.9 K/mm3 (4.5-10.0)
[2019-07-22 06:03] LABS: Blood Urea Nitrogen 34 mg/dL (9-20); Calcium 9.1 mg/dL (8.4-10.2); Carbon Dioxide > 40 mmol/L (22-30); Chloride 90 mmol/L (98-107); Estimated CRCL calculation 66 ml/min; Estimated Glomerular Filt Rate > 60; Glucose 149 mg/dL (75-110); Potassium 3.9 mmol/L (3.4-5.0); Sodium 135 mmol/L (137-145)
[2019-07-22 08:23] LABS: Glucose Point of Care 120 (65-105)
[2019-07-22] MEDS: ENOXAPARIN 40 MG/0.4 ML SYRINGE SUB-Q (08:28)
[2019-07-22] MEDS: THEOPHYLLINE ANHYDROUS 200 MG CAP.ER.24H 400 MG PO (08:28)
[2019-07-22] MEDS: CHOLECALCIFEROL 1,000 UNIT TABLET 1000 UNITS PO (08:29)
[2019-07-22] MEDS: PANTOPRAZOLE 40 MG TABLET PO (08:29)
[2019-07-22] MEDS: ESCITALOPRAM OXALATE 10 MG TABLET 20 MG BY MOUTH (08:29)
[2019-07-22] MEDS: VERAPAMIL HCL 180 MG TABLET ER PO (08:29)
[2019-07-22] MEDS: METOPROLOL TARTRATE 25 MG TABLET PO (08:29)
[2019-07-22] MEDS: busPIRone HCL 5 MG TABLET 15 MG PO (08:29)
[2019-07-22] MEDS: MONTELUKAST SODIUM 10 MG TABLET PO (08:29)
[2019-07-22] MEDS: GABAPENTIN 100 MG CAPSULE PO ×2 (08:29→12:19)
[2019-07-22] MEDS: MAGNESIUM OXIDE 400 MG TABLET PO (08:30)
[2019-07-22] MEDS: BENZONATATE 100 MG CAPSULE 200 MG PO ×2 (08:30→12:18)
[2019-07-22] MEDS: ASPIRIN 81 MG ENTERIC TABLET PO (08:30)
[2019-07-22] MEDS: INSULIN GLARGINE (*BKC) 100 UNITS/ML 15 UNITS SUB-Q (08:34)
--- NOTE | 2019-07-22 10:31 | PCOTNOTE ---
Patient declined treatment is date due to fatigue after Physical Therapy and stated I washed up already and don't need to use the bathroom Patient anticipating discharge home this date.
[2019-07-22 12:21] LABS: Glucose Point of Care 189 (65-105)
--- NOTE | 2019-07-22 12:40 | PM.IMPN ---
Progress Note: A&P Assessment and Plan (1) Acute and chronic respiratory failure: Qualifiers: Respiratory failure complication: hypoxia and hypercapnia Qualified Code(s): J96.21 - Acute and chronic respiratory failure with hypoxia; J96.22 - Acute and chronic respiratory failure with hypercapnia Code(s): J96.20 - Acute and chronic respiratory failure, unspecified whether with hypoxia or hypercapnia Status: Acute Assessment and Plan: Result of pneumonia and COPD exacerbation. Successfully extubated on 07/19/2019. Remains on 5 L high-flow oxygen. Normally on 4 L oxygen at home. Clinically patient has significantly improved. Continue IV azithromycin and ceftriaxone while here but has already had 7 days treatment. Continue nebulizer treatments and Pulmozyme. Continue PT/OT. Will do new home oxygen evaluation. Hopefully home later today. (2) Sepsis: Qualifiers: Sepsis type: sepsis due to unspecified organism Sepsis acute organ dysfunction status: with acute organ dysfunction Severe sepsis acute organ dysfunction type: acute respiratory failure Acute respiratory failure type: unspecified Severe sepsis shock status: without septic shock Qualified Code(s): A41.9 - Sepsis, unspecified organism; R65.20 - Severe sepsis without septic shock; J96.00 - Acute respiratory failure, unspecified whether with hypoxia or hypercapnia Code(s): A41.9 - Sepsis, unspecified organism Status: Acute Assessment and Plan: Criteria met on admission. Result of pneumonia. Continue IV antibiotics as noted above. Blood pressure reviewed on 07/21/2019 with mild elevation. MRSA nasal culture negative. Blood cultures negative to date. WBC decreased to 14.9 today. (3) Pneumonia: Qualifiers: Laterality: left Lung location: lower lobe of lung Pneumonia type: due to unspecified organism Qualified Code(s): J18.9 - Pneumonia, unspecified organism Code(s): J18.9 - Pneumonia, unspecified organism Status: Acute Assessment and Plan: Imaging on admission with findings consistent with left-sided pneumonia. Clinically has improved. Continue IV antibiotics other respiratory treatments as noted above. (4) COPD exacerbation: Code(s): J44.1 - Chronic obstructive pulmonary disease with (acute) exacerbation Status: Acute Assessment and Plan: Continue respiratory treatments as noted above. Was on IV steroids but now discontinued. Continue home theophylline and montelukast in addition to respiratory treatments as noted above. (5) Hypokalemia: Code(s): E87.6 - Hypokalemia Status: Acute Assessment and Plan: Potassium 3.9 today. Will continue to monitor and replace as needed while here. (6) Acute kidney injury: Code(s): N17.9 - Acute kidney failure, unspecified Status: Resolved Assessment and Plan: Creatinine elevated to 1.67 on admission. Creatinine remains normal at 1.00 today. Will continue to monitor while here with treatment of infections. Continue to avoid nephrotoxic agents. (7) Diabetes mellitus: Qualifiers: Diabetes mellitus type: type 2 Diabetes mellitus [employer] insulin use: with [facility] use Diabetes mellitus complication status: with hyperglycemia Qualified Code(s): E11.65 - Type 2 diabetes mellitus with hyperglycemia; Z79.4 - [facility] (current) use of insulin Code(s): E11.9 - Type 2 diabetes mellitus without complications Status: Acute Assessment and Plan: Hemoglobin A1c 6.5. Glucose reviewed on 07/22/2019 and acceptable today. Will continue Lantus while here but anticipate transition back to home insulin at discharge. Continue sliding scale insulin. Will continue to monitor and adjust treatment as needed. (8) Hypertension: Qualifiers: Hypertension type: essential hypertension Qualified Code(s): I10 - Essential (primary) hypertension Code(s): I10 - Es
--- NOTE | 2019-07-22 14:13 | HOMEO2EVAL ---
Home Oxygen Evaluation RC: Home Oxygen (O2) Evaluation Start: 07/22/19 11:52 Freq: ONCE Status: Active Protocol: RPE Activity Type Activity Date Activity User E-Sign Co-Sign Detail Recorded Client Recorded Date Recorded By Document 07/22/19 13:13 LMJ [email or web address] 07/22/19 13:54 LMJ Document 07/22/19 13:13 LMJ [email or web address] 07/22/19 13:55 LMJ Document 07/22/19 13:14 [email or web address] [email or web address] 07/22/19 13:55 LMJ Document 07/22/19 13:15 [email or web address] [email or web address] 07/22/19 13:56 LMJ Document 07/22/19 13:17 [email or web address] [email or web address] 07/22/19 13:57 LMJ Document 07/22/19 13:20 [email or web address] [email or web address] 07/22/19 13:59 LMJ Document 07/22/19 13:21 [email or web address] [email or web address] 07/22/19 14:02 LMJ Document 07/22/19 13:24 LMJ [email or web address] 07/22/19 14:04 LMJ Document 07/22/19 13:25 [email or web address] [email or web address] 07/22/19 14:10 LMJ Document 07/22/19 13:26 LMJ [email or web address] 07/22/19 14:10 LMJ 07/22/19 07/22/19 07/22/19 13:13 13:13 13:14 Home O2 Evaluation Test Phase Resting Resting Resting Oxygen Delivery Room Air Nasal Cannula Nasal Cannula Oxygen Flow Rate (L/min) 2 3 Pulse Oximetry (90-100 %) 79 L 82 L 85 L Pulse Rate (60-100 beats/min) 89 91 90 Ambulation Distance (feet) Treatment Charges O2 Evaluation 07/22/19 07/22/19 07/22/19 13:15 13:17 13:20 Home O2 Evaluation Test Phase Resting Resting Oxygen Delivery Nasal Cannula Nasal Cannula Nasal Cannula Oxygen Flow Rate (L/min) 4 5 5 Pulse Oximetry (90-100 %) 86 L 88 L 92 Pulse Rate (60-100 beats/min) 91 89 91 Ambulation Distance (feet) Treatment Charges 07/22/19 07/22/19 07/22/19 13:21 13:24 13:25 Home O2 Evaluation Test Phase Exercise Exercise Exercise Oxygen Delivery Nasal Cannula Nasal Cannula Nasal Cannula Oxygen Flow Rate (L/min) 5 5 6 Pulse Oximetry (90-100 %) 93 86 L 89 L Pulse Rate (60-100 beats/min) 92 94 92 Ambulation Distance (feet) 40 60 60 Treatment Charges 07/22/19 13:26 Home O2 Evaluation Test Phase Resting Oxygen Delivery Nasal Cannula Oxygen Flow Rate (L/min) 6 Pulse Oximetry (90-100 %) 90 Pulse Rate (60-100 beats/min) 90 Ambulation Distance (feet) Treatment Charges
--- NOTE | 2019-07-22 16:32 | PM.DS ---
DS: Diagnosis Admitting Diagnosis Admitting Diagnosis: Acute and chronic respiratory failure with hypoxia Discharge Diagnosis (1) Acute and chronic respiratory failure: Qualifiers: Respiratory failure complication: hypoxia and hypercapnia Qualified Code(s): J96.21 - Acute and chronic respiratory failure with hypoxia; J96.22 - Acute and chronic respiratory failure with hypercapnia Code(s): J96.20 - Acute and chronic respiratory failure, unspecified whether with hypoxia or hypercapnia Status: Acute (2) Sepsis: Qualifiers: Acute respiratory failure type: unspecified Sepsis acute organ dysfunction status: with acute organ dysfunction Sepsis type: sepsis due to unspecified organism Severe sepsis acute organ dysfunction type: acute respiratory failure Severe sepsis shock status: without septic shock Qualified Code(s): A41.9 - Sepsis, unspecified organism; R65.20 - Severe sepsis without septic shock; J96.00 - Acute respiratory failure, unspecified whether with hypoxia or hypercapnia Code(s): A41.9 - Sepsis, unspecified organism Status: Acute (3) Pneumonia: Qualifiers: Laterality: left Lung location: lower lobe of lung Pneumonia type: due to unspecified organism Qualified Code(s): J18.9 - Pneumonia, unspecified organism Code(s): J18.9 - Pneumonia, unspecified organism Status: Acute (4) COPD exacerbation: Code(s): J44.1 - Chronic obstructive pulmonary disease with (acute) exacerbation Status: Acute (5) Hypokalemia: Code(s): E87.6 - Hypokalemia Status: Acute (6) Acute kidney injury: Code(s): N17.9 - Acute kidney failure, unspecified Status: Resolved (7) Diabetes mellitus: Qualifiers: Diabetes mellitus complication status: with hyperglycemia Diabetes mellitus mcc insulin use: with mcc use Diabetes mellitus type: type 2 Qualified Code(s): E11.65 - Type 2 diabetes mellitus with hyperglycemia; Z79.4 - [facility] (current) use of insulin Code(s): E11.9 - Type 2 diabetes mellitus without complications Status: Acute (8) Hypertension: Qualifiers: Hypertension type: essential hypertension Qualified Code(s): I10 - Essential (primary) hypertension Code(s): I10 - Essential (primary) hypertension Status: Acute (9) Diastolic heart failure: Qualifiers: Heart failure chronicity: chronic Qualified Code(s): I50.32 - Chronic diastolic (congestive) heart failure Code(s): I50.30 - Unspecified diastolic (congestive) heart failure Status: Acute (10) Tobacco dependence: Code(s): F17.200 - Nicotine dependence, unspecified, uncomplicated Status: Acute DS: Summary Hospital Course Reason for hospitalization: Acute respiratory failure. Hospital Course: Date of Service of Discharge: July 22, 2019. History of Present Illness: Patient is a 73-year-old with COPD, chronic respiratory failure, diastolic congestive heart failure, hypertension hyperlipidemia who was transferred from [facility] with worsening respiratory failure. Patient was initially seen in the emergency room at [facility] with shortness of breath and cough productive of yellow/brown sputum. Symptoms began 4 days prior to presentation. He was admitted to the hospital for pneumonia and COPD exacerbation at which time he was started on BiPAP. Unfortunately, patient continued to have worsening respiratory failure. Eventually, rapid response was called. With continuing problems, transfer to our ICU was requested. Our personnel adviser accepted transfer with patient admitted to the ICU. Patient was intubated prior to transfer. Course in Hospital: Patient was admitted to [place] see you already intubated. He received nebulizer treatments as well as IV steroids. He was started on IV ceftriaxone and azithromycin. With these measures patient steadily improved. He was
== END 2019-07-22 16:50 | disposition home or self-care (01) | DRG 870 ==
LOC: ANHICU 07-18 10:16 → ANH2MED 07-21 14:39 → ANHICU 07-26 08:38 → ANH2MED 07-26 08:39 → ANHICU 07-26 08:39
PROVIDERS: Internal Medicine; Admitting Provider Family Medicine; PCP Internal Medicine; Visit Provider Hospitalist
DX: A41.9 Sepsis, unspecified organism (principal); J96.22 Acute and chronic respiratory failure with hypercapnia; J18.9 Pneumonia, unspecified organism; J96.21 Acute and chronic respiratory failure with hypoxia; J44.1 Chronic obstructive pulmonary disease with (acute) exacerbation; I50.32 Chronic diastolic (congestive) heart failure; N17.9 Acute kidney failure, unspecified; E11.65 Type 2 diabetes mellitus with hyperglycemia; Z79.4 Long term (current) use of insulin; I10 Essential (primary) hypertension; F17.200 Nicotine dependence, unspecified, uncomplicated; Z66 Do not resuscitate; E87.6 Hypokalemia
CPT/HCPCS: 36415; 36600; 71045; 74018; 80048; 82375; 82805; 83036; 83050; 83605; 83735; 84100; 85025; 85027; 86140; 87081; 94002; 94003; 94618; 94640; 97110; 97116; 97161; 97165; 97530; A9270; C8929; C9113; J0360; J0456; J0696; J1650; J1815; J1940; J2060; J2250; J2704; J2920; J2930; J3010; J7030; J7040; J7050; Q9957

== ENCOUNTER 2019-07-23 19:54 | Observation (INO) | payer OTHER, SELFPAY ==
[2019-07-23] VITALS (7 sets, daily range): BP systolic 116–169; BP diastolic 63–91; PULSE 96–107; RESP 22–28; TEMP 36.6–36.7; O2SAT 90–98; BMI 29.2
--- NOTE | ~2019-07-23 | XR_ITS ---
EXAMINATION: XR chest 1V portable EXAM DATE: 07/25/2019 09:20 INDICATION: Shortness of breath. TECHNIQUE: Portable AP frontal chest x-ray was obtained. Comparison is made to prior examination from 07/24/2019. FINDINGS: Cardiomediastinal silhouette is normal. Small linear left basilar opacities unchanged likel y atelectasis/scarring. No confluent consolidation, pneumothorax or pleural effusion suspected. Right clavicular hardware, right axillary wires, clips. There are mild bony degenerative changes. There is no significant interval change. IMPRESSION: 1. No acute cardiopulmonary findings or interval change. Reviewed, dictated and finalized at location A.
--- NOTE | ~2019-07-23 | XR_ITS ---
EXAMINATION: XR chest 1V portable DATE: 07/24/2019 09:51 INDICATION: Shortness of breath TECHNIQUE: frontal view of the chest was obtained. COMPARISON: Chest radiograph dated 07/23/2019 and 09/04/2018 FINDINGS: Mild reticular and linear opacities at the bilateral lung bases which appear largely unchanged since 2019 and favor atelectasis/scarring over pulmonary edema or pneumonia. No pleural effusion or pneumot horax. The cardiomediastinal silhouette is normal. 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 IMPRESSION: 1. Unchanged likely chronic mild opacities in the bilateral lower lung zones and favor atelectasis/sc arring over mild pulmonary edema or pneumonia. Reviewed, dictated and finalized at location A. IMPRESSION: 1. Unchanged likely chronic mild opacities in the bilateral lower lung zones an d favor atelectasis/scarring over mild pulmonary edema or pneumonia.
--- NOTE | ~2019-07-23 | XR_ITS ---
EXAMINATION: XR chest 1V portable INDICATION: Shortness of breath, history of COPD TECHNIQUE: Portable AP chest at 2042 hours COMPARISON: 07/20/2019 FINDINGS: There are minimal airspace opacities of the lung bases without significant change. No pleur al effusion or pneumothorax is identified. The cardiomediastinal silhouette is normal. Metallic densi ties project over the right upper chest wall. IMPRESSION: 1. Base opacities, consistent with atelectasis versus pneumonia. Reviewed, dictated and finalized at location A.
--- NOTE | 2019-07-23 20:15 | ECG_ITS ---
Measurements Intervals [place] Rate: 105 P: 74 [place]: 164 QRS: -41 QRSD: 105 T: 81 QT: 337 QTc: 447 Interpretive Statements SINUS TACHYCARDIA ATRIAL COUPLET LEFT AXIS DEVIATION LEFT VENTRICULAR HYPERTROPHY AND ST-T CHANGE BORDERLINE R WAVE PROGRESSION, ANTERIOR LEADS ABNORMAL ECG Electronically Signed On 07-24-2019 8:29:39 CDT by Juan Donald D.O.
--- NOTE | 2019-07-23 20:29 | ED.SOB ---
HPI - SOB/Dyspnea General Chief Complaint: Shortness of Breath/Dyspnea Stated Complaint: COPD History of Present Illness HPI Narrative: 73-year-old presents to the ED with shortness or breath that became worse at 4:00 a.m. this morning. Paramedics were contacted approximately 1945. On the scene pulse ox was 80% on 5 L. There was marked improvement after albuterol tx en route. He was admitted one week ago to [facility] for exacerbation of COPD and pneumonia; he was on a ventilator x 5 days, d.c. 2 days later, yesterday. He was unable to get his d.c prescriptions filled. Review of hospital records indicates he received Rocephin 1 gram x1 and azithromycin 500 mg x 2 doses. Pt. had one neb treatment this AM. He is normally on 5 liters by nasal prongs with a pulse ox of 88%. He has been on a ventilator twice over the past 2 1/2 months. He continues to have a cough. He denies fevers or chills. Pt is DNR. Related Data Home Medications Medication Instructions Recorded Confirmed albuterol sulfate 0.63 mg INHALATION Q4H PRN 04/10/19 07/23/19 aspirin [Aspirin Low Dose] 81 mg PO DAILY 04/10/19 07/23/19 buspirone 15 mg PO BID 04/10/19 07/23/19 cholecalciferol (vitamin D3) 1,000 unit PO DAILY 04/10/19 07/23/19 gabapentin 100 mg PO TID 04/10/19 07/23/19 magnesium oxide 400 mg PO BID 04/10/19 07/23/19 metoprolol tartrate 25 mg PO BID 04/10/19 07/23/19 montelukast 10 mg PO DAILY 04/10/19 07/23/19 simvastatin 10 mg PO HS 04/10/19 07/23/19 theophylline 400 mg PO DAILY 04/10/19 07/23/19 verapamil 180 mg PO DAILY 04/10/19 07/23/19 Allergies Allergy/AdvReac Type Severity Reaction Status Date / Time No Known Allergies Allergy Unverified 06/02/16 00:54 Review of Systems Constitutional: Constitutional: Reports no additional constitutional complaints ENT: Denies nasal congestion and Denies sore throat Cardiovascular: Cardiovascular: Denies chest pain Respiratory: Respiratory: Reports no additional respiratory complaints Gastrointestinal: Gastrointestinal: Denies abdominal pain and Denies vomiting Genitourinary: Genitourinary: Denies dysuria Musculoskeletal: Musculoskeletal: Reports no additional musculoskeletal complaints Integumentary/Breasts: Skin/Breast: Denies rash Neurologic: Reports weakness Endocrine: Endocrine: Reports fatigue Hematologic/Lymphatic: Hematologic/Lymphatic: Denies easy bruising PMF Past Medical History Medical History (Updated 07/24/19 @ 02:39 by Asif Lawson MD) COPD (chronic obstructive pulmonary disease) Diabetes mellitus Diastolic heart failure Hypertension Respiratory failure History of acute hypercapnic respiratory failure requiring intubation in April 2019 here at [facility]. Tobacco dependence Surgical History Surgical History Clavicle fracture Social History Social History Smoking packs per day: 1 Smoking cigarettes per day: 20.0 Years smoked: 60 Smoking pack-years: 60.00 Smoking status: Current every day smoker Tobacco type: cigarettes Second hand tobacco smoke exposure: Yes Alcohol intake: former Drinks per week: 1 Substance use: unknown Last use: RARE ON ALCOHOL INTAKE @ 1 MONTH Gender identity (if verbalized by the patient): Male Spiritual care concerns: No Agree to blood products: Yes Exam Const: Orientation/consciousness: patient oriented x3 Other: Sitting up, not in tripod position, speaking in sentences, labored breathing. HENMT: Head: normal to inspection General nose exam: no nasal discharge noted Mouth: Yes moist mucous membranes Eyes: Conjunctivae: conjunctivae normal Neck: Neck: no lymphadenopathy Resp: Effort & Inspection: uses accessory muscles Auscultation: breath sounds absent and diminished lung sounds Other: few crackles in bases Cardio: Rate: regular rate Rhythm: regular rhythm H
[2019-07-23 20:40] LABS: Hemoglobin 12.5 g/dL (12.4-15.3); Mean Corpuscular HGB Conc 29.8 g/dL (32.0-36.0); Mean Corpuscular Hemoglobin 28.5 pg (27.0-31.0); Mean Corpuscular Volume 95.9 fL (78.0-102.0); Mean Platelet Volume 9.9 fl (8.7-11.0); Platelet Count Result 351 K/mm3 (150-420); Red Blood Count 4.38 M/mm3 (4.70-6.10); Red Cell Distribution Width 13.9 % (11.6-14.4)
--- NOTE | 2019-07-23 20:45 | PC.NURSE ---
Pt states he was intubated last week at [facility]. States he does not want to be intubated again. States he has discussed this with his daughter.
[2019-07-23 20:56] LABS: Alanine Aminotransferase 24 U/L (16-63); Albumin Level 2.6 g/dL (3.4-5.0); Alkaline Phosphatase 81 U/L (46-116); Anion Gap 2.1 mmol/L (7-16); Aspartate Amino Transferase 17 U/L (15-37); Bilirubin,Total 0.4 mg/dL (0.00-1.00); Blood Urea Nitrogen 25 mg/dL (7-18); Carbon Dioxide 44 mmol/L (21-32); Chloride 102 mmol/L (98-108); Estimated Glomerular Filt Rate > 60; Glucose 165 mg/dL (70-99); Osmolality Calculated 306 mOsm/kg (285-295); Potassium 4.1 mmol/L (3.5-5.1); Sodium 144 mmol/L (136-145); Total Protein 6.3 g/dL (6.4-8.2)
[2019-07-23 21:01] LABS: Troponin I 0.19 ng/mL (0.00-0.056)
[2019-07-23 21:03] LABS: Lactic Acid 0.7 mmol/L (0.4-2.0)
[2019-07-23 21:07] LABS: Band Neutrophils Percent 2 % (0-6); Basophils Percent Manual 0 % (0-1); Eosinophils Absolute Manual 0.17 K/mm3 (0.02-0.5); Eosinophils Percent Manual 1 % (1-6); Lymphocytes Absolute Manual 2.38 K/mm3 (1.1-4.5); Lymphocytes Percent Manual 14 % (18-44); Metamyelocytes Percent 3 %; Monocytes Absolute Manual 0.51 K/mm3 (0.1-0.90); Monocytes Percent Manual 3 % (3-9); Neutrophils Absolute Manual 13.43 K/mm3 (1.3-6.7); Neutrophils Percent Manual 77 % (46-73); Total Cells Counted 100
[2019-07-23 21:08] LABS: Platelet Estimate Adequate (Adequate)
[2019-07-23 21:27] LABS: Base Excess ABG 12.1 mmol/L (0-2); HCO3 ABG 42.4 mmol/L (23-29); Oxygen Content ABG 16.5 %vol (16.0-22.0); Oxyhemoglobin 88.4 % (94-100); PO2 ABG 61.1 mmHg (75-85); Total Hemoglobin 13.3 g/dL
[2019-07-23 21:29] LABS: Device NASAL CANNULA; Modified Allen's Test Pass; Site Drawn LEFT RADIAL
--- NOTE | 2019-07-23 21:45 | PC.NURSE ---
Pt refusing Bipap when discussed with pt at this time.
--- NOTE | 2019-07-23 21:55 | PC.NURSE ---
Pt found standing on side of bed with to using urinal. Pt did not press call light for staff assist. Once finished with urinal pt assisted back onto [facility]. SpO2 72% with gradual increase to 82% on 5L via NC. O2 increased to 6L via NC. SpO2 increased to 87%. Dr Lawson aware. Orders rcvd for Duoneb and IV Solumedrol at this time. Will continue to monitor.
[2019-07-23] MEDS: IPRATROPIUM 0.5 MG/ALBUTEROL SULFATE 2.5 MG AMPUL.NEB 3 ML INHALATION (22:01)
[2019-07-23] MEDS: methylPREDNISolone SOD SUCC 125 MG VIAL IV PUSH (22:02)
--- NOTE | 2019-07-23 22:33 | PC.NURSE ---
Dr Lawson at bedside talking with pt and re: plan of care.
--- NOTE | 2019-07-23 23:35 | ADMGEN ---
This patient, Mike Dumont, was admitted to 2nd Floor Room 207-2. Patient oriented to hospital policies and general routines including ID bracelet, bed and alarms, visiting hours, pain management, procedures, bathroom and other care routines, personal items, smoking policy, room service/diet, and visiting hours. Valuables list has been completed. Information on how to activate the Rapid Response Team has been discussed. Patient encouraged to report perceived risks to care and to ask questions if they do not understand what they are told or what they should do.
[2019-07-24] VITALS (13 sets, daily range): BP systolic 101–150; BP diastolic 64–82; PULSE 79–102; RESP 18–24; TEMP 36.4–36.7; O2SAT 90–98
--- NOTE | 2019-07-24 00:05 | PC.NURSE ---
pt given sandwich per request, reports hasn't eaten all day, minimal sob while eating
[2019-07-24 00:14] LABS: Troponin I 0.23 ng/mL (0.00-0.056)
[2019-07-24] MEDS: SODIUM CHLORIDE 0.9% IV 1,000 ML 75 ML IV CONT (00:42)
[2019-07-24] MEDS: IPRATROPIUM 0.5 MG/ALBUTEROL SULFATE 2.5 MG AMPUL.NEB 3 ML INHALATION ×4 (01:09→17:49)
--- NOTE | 2019-07-24 01:26 | PC.NURSE ---
Dr Lawson in pt room discussing plan of care and code status
[2019-07-24 01:45] LABS: Magnesium 1.5 mg/dL (1.8-2.4)
--- NOTE | 2019-07-24 01:45 | PC.NURSE ---
pt was bending his arm when he fell asleep causing iv to alarm, new iv inserted and medication now running through it, old iv still in place and working fine
--- NOTE | 2019-07-24 01:52 | PC.NURSE ---
[id number] pharmacy called about pt's Novolog flexpen which is unavailable. They asked if lispro could be used instead. Discussed with Dr. Lawson the pharmacy's request for the change in insulin.
--- NOTE | 2019-07-24 01:53 | P.PNCROSS_ITS ---
Event Note Event Note Event Note: At 1:40. Pt states his breathing is much better after being given the steroids and neb. treatments. Increasing troponin levels discussed with Mr. Dumont, c/w NSTEMI. Does not want to be transferred to cardiology. Pt. wants to be treated at [facility]. He understands the NV could result in complications of COPD leading to respiratory arrest. He does not want to be on BiPap or be intubated. States he has lived 73 years, enjoys life but can't do anything but watch television. He understands he can change his mind at any point. Plan: tx with antibiotics, steroids and neb. tx.
--- NOTE | 2019-07-24 02:01 | PC.NURSE ---
0125 New IV site started to the left hand with a #22 gauge catheter.
--- NOTE | 2019-07-24 03:00 | PC.NURSE ---
pt sleeping, tele monitor on, no evidence of distress noted, respirations even and regular
[2019-07-24] MEDS: MAGNESIUM SULF 2 GM/WATER 50ML 2 GM/50 ML BAG IVPB (03:05)
--- NOTE | 2019-07-24 04:22 | PC.NURSE ---
pt sleeping, respirations even and regular, no evidence of respiratory distress noted, telemetry SR
--- NOTE | 2019-07-24 05:43 | PC.NURSE ---
RT at bedside, lab at bedside, telemetry on
[2019-07-24 06:01] LABS: Hematocrit 40.6 % (37.0-46.0); Mean Corpuscular HGB Conc 29.6 g/dL (32.0-36.0); Mean Corpuscular Volume 94.6 fL (78.0-102.0); Mean Platelet Volume 10.3 fl (8.7-11.0); Platelet Count Result 306 K/mm3 (150-420); Red Blood Count 4.29 M/mm3 (4.70-6.10); Red Cell Distribution Width 13.9 % (11.6-14.4); White Blood Count 14.1 K/mm3 (4.8-10.8)
[2019-07-24 06:07] LABS: Base Excess ABG 13.9 mmol/L (0-2); HCO3 ABG 42.1 mmol/L (23-29); Oxygen Content ABG 16.9 %vol (16.0-22.0); Oxygen Saturation ABG 93.8 % (95-97); Oxyhemoglobin 92.8 % (94-100); PCO2 ABG 71.8 mmHg (35-45); PO2 ABG 68.4 mmHg (75-85); Total Hemoglobin 12.9 g/dL; pH ABG 7.39 (7.35-7.45)
[2019-07-24 06:08] LABS: Device NASAL CANNULA; Modified Allen's Test Pass; Site Drawn LEFT RADIAL
[2019-07-24 06:19] LABS: Troponin I 0.14 ng/mL (0.00-0.056)
[2019-07-24 06:27] LABS: BNP 501 pg/mL (0-100); Magnesium 1.8 mg/dL (1.8-2.4)
[2019-07-24 06:28] LABS: Band Neutrophils Percent 0 % (0-6); Eosinophils Absolute Manual 0.14 K/mm3 (0.02-0.5); Eosinophils Percent Manual 1 % (1-6); Lymphocytes Absolute Manual 0.84 K/mm3 (1.1-4.5); Lymphocytes Percent Manual 6 % (18-44); Monocytes Percent Manual 0 % (3-9); Neutrophils Absolute Manual 13.11 K/mm3 (1.3-6.7); Neutrophils Percent Manual 93 % (46-73); Platelet Estimate Adequate (Adequate); Total Cells Counted 100
--- NOTE | 2019-07-24 07:25 | PC.NURSE ---
Patient in bed with visitor in room. Call light reach. telemetry shows SR
[2019-07-24 07:51] LABS: Glucose Point of Care 287 (65-105)
--- NOTE | 2019-07-24 08:00 | ECG_ITS ---
Measurements Intervals [place] Rate: 89 P: 64 [place]: 167 QRS: -44 QRSD: 113 T: 60 QT: 362 QTc: 442 Interpretive Statements SINUS RHYTHM ATRIAL PREMATURE COMPLEX LEFT AXIS DEVIATION INTRAVENTRICULAR CONDUCTION DELAY BORDERLINE R WAVE PROGRESSION, ANTERIOR LEADS BORDERLINE ECG Electronically Signed On 07-24-2019 7:35:43 CDT by Juan Donald D.O.
[2019-07-24] MEDS: busPIRone HCL 5 MG TABLET 15 MG PO ×2 (09:30→16:41)
[2019-07-24] MEDS: ESCITALOPRAM OXALATE 10 MG TABLET 20 MG BY MOUTH (09:30)
[2019-07-24] MEDS: ENOXAPARIN 40 MG/0.4 ML SYRINGE SUB-Q (09:30)
[2019-07-24] MEDS: GABAPENTIN 100 MG CAPSULE PO ×3 (09:30→16:40)
[2019-07-24] MEDS: MAGNESIUM OXIDE 400 MG TABLET PO ×2 (09:30→16:41)
[2019-07-24] MEDS: CHOLECALCIFEROL 1,000 UNIT TABLET 1000 UNITS PO (09:30)
[2019-07-24] MEDS: MONTELUKAST SODIUM 10 MG TABLET PO (09:30)
[2019-07-24] MEDS: VERAPAMIL HCL 180 MG TABLET ER PO (09:30)
[2019-07-24] MEDS: ASPIRIN 81 MG ENTERIC TABLET PO (09:30)
[2019-07-24] MEDS: ACETAMINOPHEN 325 MG TABLET 650 MG PO ×2 (09:31→20:39)
[2019-07-24] MEDS: METOPROLOL SUCCINATE EXT REL 25 MG TABCR PO (09:31)
[2019-07-24] MEDS: THEOPHYLLINE ANHYDROUS 100 MG CAP.ER.24H 400 MG PO (09:32)
[2019-07-24 11:01] LABS: Anion Gap 6.1 mmol/L (7-16); Blood Urea Nitrogen 25 mg/dL (7-18); Calcium 9.3 mg/dL (8.5-10.1); Carbon Dioxide 39 mmol/L (21-32); Chloride 99 mmol/L (98-108); Estimated CRCL calculation 54 ml/min; Estimated Glomerular Filt Rate > 60; Glucose 281 mg/dL (70-99); Osmolality Calculated 304 mOsm/kg (285-295); Potassium 4.1 mmol/L (3.5-5.1); Sodium 140 mmol/L (136-145)
--- NOTE | 2019-07-24 11:48 | PC.NURSE ---
Patient up to toilet with a assist. Positioned in bed for comfort. call light in reach. telemetry shows sinus rhythm
[2019-07-24] MEDS: INSULIN HUMAN REGULAR (*BKC) 100 UNITS/ML 20 UNITS IV PUSH (13:45)
--- NOTE | 2019-07-24 15:57 | PM.IMHP ---
H&P: HPI History of Present Illness Chief complaint: COPD <UBALDO Antunez - Last Filed: 07/25/19 12:40> Narrative: Mike Dumont is a 73 year old male that presented to ED complaining of shortness of breath that worsened according to the organ pipe maker metal his sats were 80% on 5 L nasal nasal cannula he has past medical history of COPD, diabetes mellitus, congestive heart failure, hypertension, respiratory failure, in tobacco dependency. while in the ER patient was given Rocephin, azithromycin, breathing treatments, and Solu-Medrol his vital signs are 36.5, 93, 24, 91, 150/78. Approximately 1 week he was admitted to [facility] for COPD and pneumonia placed on a vent for 5 days in [place] after 2 days. Patient was not able to get his prescription filled after discharge. while in the ED patient was given azithromycin, Rocephin, Solu-Medrol and breathing treatments chest x-ray did indicate mouth pulmonary edema with pneumonia. Patient BNP lactic acid within normal limits white count 14.1 blood gas pH 7.35, pCO2 89, PO2 61, bicarb 42.4. Patient condition has improved since admission. he does not display any labored breathing. turn our morning rounds patient noted that he does not want to be intubated or have CPR performed he is a DNR he also noted that he would like to have a consult for hospice. <UBALDO Antunez - Last Filed: 07/25/19 12:40> Review of Systems Constitutional: Constitutional: Denies fever(s), Denies headache(s) and Reports weakness <UBALDO Antunez - Last Filed: 07/25/19 12:40> Respiratory: Respiratory: Reports dyspnea, Reports dyspnea on exertion and Reports wheezing <UBALDO Antunez - Last Filed: 07/25/19 12:40> [facility] Past Medical History Medical History: Medical History (Updated 07/24/19 @ 02:39 by Asif Lawson MD) COPD (chronic obstructive pulmonary disease) Diabetes mellitus Diastolic heart failure Hypertension Respiratory failure History of acute hypercapnic respiratory failure requiring intubation in April 2019 here at [place]. Tobacco dependence <UBALDO Antunez - Last Filed: 07/25/19 12:40> Surgical History Surgical History: Surgical History Clavicle fracture <UBALDO Antunez - Last Filed: 07/25/19 12:40> Social History Social History: Social History Smoking packs per day: 1 Smoking cigarettes per day: 20.0 Years smoked: 60 Smoking pack-years: 60.00 Smoking status: Current every day smoker Tobacco type: cigarettes Second hand tobacco smoke exposure: Yes Alcohol intake: former Drinks per week: 1 Substance use: unknown Last use: RARE ON ALCOHOL INTAKE @ 1 MONTH Gender identity (if verbalized by the patient): Male Spiritual care concerns: No Agree to blood products: Yes <UBALDO Antunez - Last Filed: 07/25/19 12:40> Meds Home Medications and Allergies Home medications: Home Medications Medication Instructions Recorded Confirmed Type albuterol sulfate 0.63 mg INHALATION Q4H PRN 04/10/19 07/23/19 History aspirin [Aspirin Low Dose] 81 mg PO DAILY 04/10/19 07/23/19 History buspirone 15 mg PO BID 04/10/19 07/23/19 History cholecalciferol (vitamin D3) 1,000 unit PO DAILY 04/10/19 07/23/19 History gabapentin 100 mg PO TID 04/10/19 07/23/19 History magnesium oxide 400 mg PO BID 04/10/19 07/23/19 History metoprolol tartrate 25 mg PO BID 04/10/19 07/23/19 History montelukast 10 mg PO DAILY 04/10/19 07/23/19 History simvastatin 10 mg PO HS 04/10/19 07/23/19 History theophylline 400 mg PO DAILY 04/10/19 07/23/19 History verapamil 180 mg PO DAILY 04/10/19 07/23/19 History escitalopram oxalate 20 mg BYMOUTH DAILY 30 Days #60 04/16/19 07/23/19 Rx tablet benzonatate 200 mg PO TID PRN #15 cap 07/22/19 07/23/19 Rx cefdinir 300 mg PO Q12H 3 Days #6 cap 07/22/19 07/23/19
[2019-07-24] MEDS: FUROSEMIDE INJ 40 MG/4 ML VIAL IV PUSH (16:40)
[2019-07-24 16:53] LABS: Glucose Point of Care 309 (65-105)
[2019-07-24 16:53] LABS: Glucose Point of Care 132 (65-105)
[2019-07-24 16:56] LABS: Troponin I 0.07 ng/mL (0.00-0.056)
[2019-07-24] MEDS: methylPREDNISolone SOD SUCC 125 MG VIAL IV PUSH (17:24)
[2019-07-24 17:54] LABS: Add Urine Microscopic? YES; Appearance Urine Clear (Clear); Bilirubin Urine Negative (Negative); Blood Urine 2+ (Negative); Color Urine Yellow (Yellow); Glucose Urine UA 3+ (Negative); Ketones Urine Negative (Negative); Leukocyte Esterase Ur Negative (Negative); Nitrate Urine Negative (Negative); Protein Urine Trace (Negative); Specific Grav Ur 1.015 (1.010-1.020); Urobilinogen Urine 0.2 mg/dL (0.2-1.0)
[2019-07-24 18:01] LABS: Bacteria Urine Trace /hpf; Squamous Epithelial Cell Urine Rare /hpf (Few); WBC Urine 0-3 /hpf (0-3)
--- NOTE | 2019-07-24 20:23 | PC.NURSE ---
Patient required assistance to sit up on edge of bed. SPO2 90 on 6 liters.
[2019-07-24 20:35] LABS: Glucose Point of Care 374 (65-105)
[2019-07-24] MEDS: SIMVASTATIN 10 MG TABLET PO (20:39)
--- NOTE | 2019-07-24 22:54 | PC.NURSE ---
Patient awake sitting on edge of bed. Telemetry shows sinus rhythm
[2019-07-25] VITALS (15 sets, daily range): BP systolic 135–177; BP diastolic 58–94; PULSE 70–100; RESP 16–24; TEMP 36.2–37; O2SAT 88–98
[2019-07-25] MEDS: IPRATROPIUM 0.5 MG/ALBUTEROL SULFATE 2.5 MG AMPUL.NEB 3 ML INHALATION ×4 (00:43→17:39)
[2019-07-25] MEDS: methylPREDNISolone SOD SUCC 125 MG VIAL IV PUSH ×2 (03:12→10:20)
[2019-07-25 05:37] LABS: Hematocrit 38.8 % (37.0-46.0); Hemoglobin 11.8 g/dL (12.4-15.3); Mean Corpuscular HGB Conc 30.4 g/dL (32.0-36.0); Mean Corpuscular Hemoglobin 28.3 pg (27.0-31.0); Mean Platelet Volume 10.7 fl (8.7-11.0); Platelet Count Result 327 K/mm3 (150-420); Red Blood Count 4.17 M/mm3 (4.70-6.10); Red Cell Distribution Width 14.1 % (11.6-14.4); White Blood Count 15.4 K/mm3 (4.8-10.8)
[2019-07-25 05:53] LABS: Alanine Aminotransferase 20 U/L (16-63); Albumin Level 2.7 g/dL (3.4-5.0); Alkaline Phosphatase 85 U/L (46-116); Aspartate Amino Transferase 10 U/L (15-37); Bilirubin,Total 0.3 mg/dL (0.00-1.00); Blood Urea Nitrogen 26 mg/dL (7-18); Calcium 9.5 mg/dL (8.5-10.1); Carbon Dioxide 43 mmol/L (21-32); Chloride 95 mmol/L (98-108); Estimated CRCL calculation 45 ml/min; Estimated Glomerular Filt Rate 51; Osmolality Calculated 307 mOsm/kg (285-295); Sodium 137 mmol/L (136-145); Total Protein 6.4 g/dL (6.4-8.2)
[2019-07-25 05:57] LABS: Glucose 438 mg/dL (70-99)
[2019-07-25 06:01] LABS: BNP 173 pg/mL (0-100)
[2019-07-25 07:37] LABS: Glucose Point of Care 378 (65-105)
[2019-07-25] MEDS: busPIRone HCL 5 MG TABLET 15 MG PO ×2 (09:22→16:57)
[2019-07-25] MEDS: ENOXAPARIN 40 MG/0.4 ML SYRINGE SUB-Q (09:22)
[2019-07-25] MEDS: ESCITALOPRAM OXALATE 10 MG TABLET 20 MG BY MOUTH (09:23)
[2019-07-25] MEDS: CHOLECALCIFEROL 1,000 UNIT TABLET 1000 UNITS PO (09:23)
[2019-07-25] MEDS: GABAPENTIN 100 MG CAPSULE PO ×3 (09:23→16:57)
[2019-07-25] MEDS: MONTELUKAST SODIUM 10 MG TABLET PO (09:23)
[2019-07-25] MEDS: ASPIRIN 81 MG ENTERIC TABLET PO (09:23)
[2019-07-25] MEDS: VERAPAMIL HCL 180 MG TABLET ER PO (09:24)
[2019-07-25] MEDS: ACETAMINOPHEN 325 MG TABLET 650 MG PO (09:24)
[2019-07-25] MEDS: METOPROLOL SUCCINATE EXT REL 25 MG TABCR PO (09:26)
[2019-07-25] MEDS: THEOPHYLLINE ANHYDROUS 100 MG CAP.ER.24H 400 MG PO (09:27)
[2019-07-25] MEDS: FUROSEMIDE INJ 40 MG/4 ML VIAL IV PUSH (09:27)
[2019-07-25] MEDS: MAGNESIUM OXIDE 400 MG TABLET PO ×2 (09:27→16:57)
[2019-07-25 11:28] LABS: Glucose Point of Care 281 (65-105)
--- NOTE | 2019-07-25 12:40 | P.PNIM_ITS ---
Progress Note: A&P Assessment and Plan (1) Tobacco dependence: Code(s): F17.200 - Nicotine dependence, unspecified, uncomplicated Status: Acute Assessment and Plan: * PATIENT EDUCATED ON SMOKING CESSATION. * PATIENT REFUSES NICOTINE PATCH (2) Diabetes mellitus: Qualifiers: Diabetes mellitus type: type 2 Diabetes mellitus prison insulin use: with termite control technician use Diabetes mellitus complication status: with hyperglycemia Qualified Code(s): E11.65 - Type 2 diabetes mellitus with hyperglycemia; Z79.4 - nursing home (current) use of insulin Code(s): E11.9 - Type 2 diabetes mellitus without complications Status: Acute Assessment and Plan: * PATIENT BLOOD SUGARS GREATER THAN 300, ELEVATED DUE TO THE USE OF STEROIDS. HAVE LOWERED THE DOSE OF STEROIDS. * CONTINUE HOME DOSE INSULIN 20 UNITS SUBCU DAILY HUMALOG * CONTINUE MODERATE DOSE SLIDING SCALE * CONTINUE ACCU-CHEKS * CONTINUE DIABETIC DIET. (3) DVT prophylaxis: Code(s): Z29.9 - Encounter for prophylactic measures, unspecified Status: Acute Assessment and Plan: CONTINUE LOVENOX (4) Diastolic heart failure: Qualifiers: Heart failure chronicity: chronic Qualified Code(s): I50.32 - Chronic diastolic (congestive) heart failure Code(s): I50.30 - Unspecified diastolic (congestive) heart failure Status: Acute Assessment and Plan: * BMP IN THE 500'S * STARTED LASIX * PATIENT WILL DISCHARGE HOME WITH LASIX * WEIGH DAILY , TODAY'S WEIGHT 95.2 WEIGHT WAS NOT RECORDED YESTERDAY * CHEST X-RAY INDICATE MALE PULMONARY EDEMA * PATIENT INTAKE AND OUTPUT POSITIVE 200S, POSSIBLY NOT ACCURATE PATIENT AMBULATES TO REST ROOM ON HIS OWN. (5) COPD exacerbation: Code(s): J44.1 - Chronic obstructive pulmonary disease with (acute) exacerbation Status: Acute Assessment and Plan: * CONTINUE LOVENOX * ENCOURAGE PATIENT TO STOP SMOKING * CONTINUE SOLU-MEDROL * CONTINUE BREATHING TREATMENT * CONTINUE AZITHROMYCIN ROCEPHIN * WBCS 14.1 ,TRENDING DOWN, CBC IN A.M. * LACTIC ACID WITHIN NORMAL LIMITS * CHEST X-RAY INDICATE MOUTH PULMONARY EDEMA * PH 7.35 PCO2 89 PO2 61.1 BICARB 42.7 * CONTINUE 5 L NASAL CANNULA * PATIENT DOES USE SUPPLEMENTARY OXYGEN AT HOME * PATIENT IS NON COMPLIANT * CHEST X-RAY INDICATE MALE PULMONARY EDEMA AND PNEUMONIA (6) Hypertension: Qualifiers: Hypertension type: essential hypertension Qualified Code(s): I10 - Essential (primary) hypertension Code(s): I10 - Essential (primary) hypertension Status: Acute Assessment and Plan: * BLOOD PRESSURE 150/78 * CONTINUE METOPROLOL AND VERAPAMIL * WILL ADJUST MEDICATION NEEDED * VITAL SIGNS IS ORDERED (7) Pneumonia: Qualifiers: Laterality: bilateral Lung location: lower lobe of lung Pneumonia type: due to unspecified organism Qualified Code(s): J18.9 - Pneumonia, unspecified organism Code(s): J18.9 - Pneumonia, unspecified organism Status: Acute Assessment and Plan: * CHEST X-RAY INDICATE MOUTH PULMONARY EDEMA AND PNEUMONIA * CONTINUE ROCEPHIN AND AZITHROMYCIN * PATIENT RECENTLY DISCHARGED FROM [facility] POST VENTILATION X5 DAYS RECEIVED ANTIBIOTICS UNABLE TO BRIDGE INSTRUCTOR ANTIBIOTICS BEFORE THIS ADMISSION . * BLOOD CULTURE PENDING * WHITE BLOOD CELLS TRENDING DOWN * PATIENT AFEBRILE * PATIENT 95% ON 5-6 L Subjective Date/time seen: 07/25/19 12:40 PATIENT NOTES THAT HIS BREATHING HAS IMPROVED . HE HAS NO COMPLAINTS AT THIS TIME. SAMIRA
--- NOTE | 2019-07-25 12:40 | PM.IMPN ---
Progress Note: A&P Assessment and Plan (1) Tobacco dependence: Code(s): F17.200 - Nicotine dependence, unspecified, uncomplicated Status: Acute Assessment and Plan: PATIENT EDUCATED ON SMOKING CESSATION. PATIENT REFUSES NICOTINE PATCH (2) Diabetes mellitus: Qualifiers: Diabetes mellitus type: type 2 Diabetes mellitus senior care insulin use: with senior care use Diabetes mellitus complication status: with hyperglycemia Qualified Code(s): E11.65 - Type 2 diabetes mellitus with hyperglycemia; Z79.4 - tank terminal gauger (current) use of insulin Code(s): E11.9 - Type 2 diabetes mellitus without complications Status: Acute Assessment and Plan: PATIENT BLOOD SUGARS GREATER THAN 300, ELEVATED DUE TO THE USE OF STEROIDS. HAVE LOWERED THE DOSE OF STEROIDS. CONTINUE HOME DOSE INSULIN 20 UNITS SUBCU DAILY HUMALOG CONTINUE MODERATE DOSE SLIDING SCALE CONTINUE ACCU-CHEKS CONTINUE DIABETIC DIET. (3) DVT prophylaxis: Code(s): Z29.9 - Encounter for prophylactic measures, unspecified Status: Acute Assessment and Plan: CONTINUE LOVENOX (4) Diastolic heart failure: Qualifiers: Heart failure chronicity: chronic Qualified Code(s): I50.32 - Chronic diastolic (congestive) heart failure Code(s): I50.30 - Unspecified diastolic (congestive) heart failure Status: Acute Assessment and Plan: BMP IN THE 500'S STARTED LASIX PATIENT WILL DISCHARGE HOME WITH LASIX WEIGH DAILY , TODAY'S WEIGHT 95.2 WEIGHT WAS NOT RECORDED YESTERDAY CHEST X-RAY INDICATE MALE PULMONARY EDEMA PATIENT INTAKE AND OUTPUT POSITIVE 200S, POSSIBLY NOT ACCURATE PATIENT AMBULATES TO REST ROOM ON HIS OWN. (5) COPD exacerbation: Code(s): J44.1 - Chronic obstructive pulmonary disease with (acute) exacerbation Status: Acute Assessment and Plan: CONTINUE LOVENOX ENCOURAGE PATIENT TO STOP SMOKING CONTINUE SOLU-MEDROL CONTINUE BREATHING TREATMENT CONTINUE AZITHROMYCIN ROCEPHIN WBCS 14.1 ,TRENDING DOWN, CBC IN A.M. LACTIC ACID WITHIN NORMAL LIMITS CHEST X-RAY INDICATE MOUTH PULMONARY EDEMA PH 7.35 PCO2 89 PO2 61.1 BICARB 42.7 CONTINUE 5 L NASAL CANNULA PATIENT DOES USE SUPPLEMENTARY OXYGEN AT HOME PATIENT IS NON COMPLIANT CHEST X-RAY INDICATE MALE PULMONARY EDEMA AND PNEUMONIA (6) Hypertension: Qualifiers: Hypertension type: essential hypertension Qualified Code(s): I10 - Essential (primary) hypertension Code(s): I10 - Essential (primary) hypertension Status: Acute Assessment and Plan: BLOOD PRESSURE 150/78 CONTINUE METOPROLOL AND VERAPAMIL WILL ADJUST MEDICATION NEEDED VITAL SIGNS IS ORDERED (7) Pneumonia: Qualifiers: Laterality: bilateral Lung location: lower lobe of lung Pneumonia type: due to unspecified organism Qualified Code(s): J18.9 - Pneumonia, unspecified organism Code(s): J18.9 - Pneumonia, unspecified organism Status: Acute Assessment and Plan: CHEST X-RAY INDICATE MOUTH PULMONARY EDEMA AND PNEUMONIA CONTINUE ROCEPHIN AND AZITHROMYCIN PATIENT RECENTLY DISCHARGED FROM [facility] POST VENTILATION X5 DAYS RECEIVED ANTIBIOTICS UNABLE TO CAPTAIN CANNERY TENDER ANTIBIOTICS BEFORE THIS ADMISSION . BLOOD CULTURE PENDING WHITE BLOOD CELLS TRENDING DOWN PATIENT AFEBRILE PATIENT 95% ON 5-6 L Subjective Date/time seen: 07/25/19 12:40 PATIENT NOTES THAT HIS BREATHING HAS IMPROVED . HE HAS NO COMPLAINTS AT THIS TIME. PATIENT INFORMED ME THAT WHEN HE DISCHARGE HE WILL DISCHARGE HOME, HE WILL NOT DISCHARGE TO A HALF-WAY. PATIENT ABLE TO TOLERATE ALL MEALS , SLEPT WELL AND AMBULATE AT BASELINE. PATIENT DENIES CP, PALPITATION, EXTREMITY NUMBNESS, LIGHTHEADNESS, DIZZINESS, CONSTIPATION, DIARRHEA, OR CHILLS OR FEVER. PATIENT AGREE THAT HE IS READY FOR DISCHARGE TOMORROW. WILL GIVE HIM 1 MORE DAY OF IV ANTIBIOTIC AND POSSIBLY DISC
[2019-07-25 16:37] LABS: Glucose Point of Care 402 (65-105)
[2019-07-25] MEDS: predniSONE 20 MG TABLET 40 MG PO (16:57)
--- NOTE | 2019-07-25 18:35 | P.PNCROSS_ITS ---
Event Note Event Note Event Note: Patient states that he feels well and is ready to go home. He denies any pain and states that his breathing is much better. He is currently on 5 L by nasal cannula, his home dose. Decreased breath sounds throughout with no increased work of breathing. Scattered wheezes. Regular rate rhythm without murmur rub or gallop. Abdomen is soft and not distended. Scant pitting edema in the extremities. [facility] care seems most prudent until he has home environment which will meet his needs. Taper steroids. I have examined the patient and reviewed the chart. I discussed the patient's care with Padmini Blackburn APN and agree with her assessment and plan.
[2019-07-25] MEDS: SIMVASTATIN 10 MG TABLET PO (20:10)
[2019-07-25 20:58] LABS: Glucose Point of Care > 450 (65-105)
[2019-07-25 22:57] LABS: Glucose Point of Care 403 (65-105)
[2019-07-26] MEDS: IPRATROPIUM 0.5 MG/ALBUTEROL SULFATE 2.5 MG AMPUL.NEB 3 ML INHALATION ×2 (00:48→05:53)
[2019-07-26 04:04] VITALS: BP 134/76; PULSE 91; RESP 20; TEMP 36.7; O2SAT 93
[2019-07-26 05:22] LABS: Hematocrit 36.2 % (37.0-46.0); Hemoglobin 11.2 g/dL (12.4-15.3); Mean Corpuscular HGB Conc 30.9 g/dL (32.0-36.0); Mean Corpuscular Hemoglobin 28.6 pg (27.0-31.0); Mean Corpuscular Volume 92.6 fL (78.0-102.0); Mean Platelet Volume 9.9 fl (8.7-11.0); Platelet Count Result 306 K/mm3 (150-420); Red Blood Count 3.91 M/mm3 (4.70-6.10); Red Cell Distribution Width 14.1 % (11.6-14.4); White Blood Count 15.8 K/mm3 (4.8-10.8)
[2019-07-26 05:52] LABS: Alanine Aminotransferase 16 U/L (16-63); Albumin Level 2.6 g/dL (3.4-5.0); Alkaline Phosphatase 75 U/L (46-116); Anion Gap 2.9 mmol/L (7-16); Aspartate Amino Transferase 11 U/L (15-37); Bilirubin,Total 0.3 mg/dL (0.00-1.00); Blood Urea Nitrogen 29 mg/dL (7-18); Calcium 9.6 mg/dL (8.5-10.1); Carbon Dioxide 42 mmol/L (21-32); Chloride 97 mmol/L (98-108); Estimated CRCL calculation 53 ml/min; Estimated Glomerular Filt Rate > 60; Glucose 336 mg/dL (70-99); Osmolality Calculated 304 mOsm/kg (285-295); Potassium 3.9 mmol/L (3.5-5.1); Sodium 138 mmol/L (136-145)
[2019-07-26 05:54] VITALS: PULSE 86; RESP 20
[2019-07-26 06:17] VITALS: PULSE 88; RESP 20
[2019-07-26 07:47] LABS: Glucose Point of Care 305 (65-105)
[2019-07-26 08:00] VITALS: BP 154/84; PULSE 94; RESP 20; TEMP 36.5; O2SAT 93
[2019-07-26] MEDS: CHOLECALCIFEROL 1,000 UNIT TABLET 1000 UNITS PO (09:56)
[2019-07-26] MEDS: MAGNESIUM OXIDE 400 MG TABLET PO (09:56)
[2019-07-26] MEDS: ESCITALOPRAM OXALATE 10 MG TABLET 20 MG BY MOUTH (09:56)
[2019-07-26] MEDS: MONTELUKAST SODIUM 10 MG TABLET PO (09:56)
[2019-07-26] MEDS: THEOPHYLLINE ANHYDROUS 100 MG CAP.ER.24H 400 MG PO (09:56)
[2019-07-26] MEDS: busPIRone HCL 5 MG TABLET 15 MG PO (09:56)
[2019-07-26 09:57] VITALS: PULSE 94
[2019-07-26] MEDS: ENOXAPARIN 40 MG/0.4 ML SYRINGE SUB-Q (09:57)
[2019-07-26] MEDS: predniSONE 20 MG TABLET 40 MG PO (09:57)
[2019-07-26] MEDS: GABAPENTIN 100 MG CAPSULE PO (09:57)
[2019-07-26] MEDS: METOPROLOL SUCCINATE EXT REL 25 MG TABCR PO (09:57)
[2019-07-26] MEDS: VERAPAMIL HCL 180 MG TABLET ER PO (09:57)
[2019-07-26] MEDS: ASPIRIN 81 MG ENTERIC TABLET PO (09:57)
[2019-07-26] MEDS: FUROSEMIDE INJ 40 MG/4 ML VIAL IV PUSH (09:58)
--- NOTE | 2019-07-26 11:16 | P.DS_ITS ---
DS: Diagnosis Admitting Diagnosis Admitting Diagnosis: Nicotine dependence, unspecified, uncomplicated <Xavi BlackburnUBALDO - Last Filed: 07/26/19 11:34> Discharge Diagnosis (1) Tobacco dependence: Code(s): F17.200 - Nicotine dependence, unspecified, uncomplicated <Xavi BlackburnJOHNC - Last Filed: 07/26/19 11:34> Status: Acute <Yoandymaribeth Sunday BlackburnUBALDO - Last Filed: 07/26/19 11:34> Assessment and Plan: * PATIENT EDUCATED ON SMOKING CESSATION. * PATIENT REFUSES NICOTINE PATCH <Yoandymaribeth JoseUBALDO Vang - Last Filed: 07/26/19 11:34> (2) Diabetes mellitus: Qualifiers: Diabetes mellitus complication status: with hyperglycemia Diabetes mellitus superintendent marine oil terminal insulin use: with snf use Diabetes mellitus type: type 2 Qualified Code(s): E11.65 - Type 2 diabetes mellitus with hyperglycemia; Z79.4 - lobsterman (current) use of insulin <UBALDO Antunez - Last Filed: 07/26/19 11:34> Code(s): E11.9 - Type 2 diabetes mellitus without complications <Xavi GarciaJOHN VangC - Last Filed: 07/26/19 11:34> Status: Acute <Xavi JoseUBALDO Vang - Last Filed: 07/26/19 11:34> Assessment and Plan: * PATIENT WILL CONTINUE HOME MEDICATION * CONTINUE DIABETIC DIET. <UBALDO Antunez - Last Filed: 07/26/19 11:34> (3) Diastolic heart failure: Qualifiers: Heart failure chronicity: chronic Qualified Code(s): I50.32 - Chronic diastolic (congestive) heart failure <JOHN AntunezC - Last Filed: 07/26/19 11:34> Code(s): I50.30 - Unspecified diastolic (congestive) heart failure <UBALDO Antunez - Last Filed: 07/26/19 11:34> Status: Acute <UBALDO Antunez - Last Filed: 07/26/19 11:34> Assessment and Plan: * PATIENT WILL DICHARGE WITH LASIX 20 MG DAILY <Xavi Blackburn JOHNC - Last Filed: 07/26/19 11:34> (4) COPD exacerbation: Code(s): J44.1 - Chronic obstructive pulmonary disease with (acute) exacerbation <Xavi Blackburn JOHNVelia - Last Filed: 07/26/19 11:34> Status: Acute <Xavi Blackburn UBALDO - Last Filed: 07/26/19 11:34> Assessment and Plan: * PATIENT WILL DISCHARGE WITH 5 DAYS AZITHROMYCIN ,CEFDINIR WITH PREDNISONE * CONTINUE HOME NEBULIZER * CONTINUE 5 L NASAL CANNULA * PATIENT DOES USE SUPPLEMENTARY OXYGEN AT HOME * PATIENT IS NON COMPLIANT * CHEST X-RAY INDICATE MALE PULMONARY EDEMA AND PNEUMONIA <Xavi Blackburn JOHNVelia - Last Filed: 07/26/19 11:34> (5) Hypertension: Qualifiers: Hypertension type: essential hypertension Qualified Code(s): I10 - Essential (primary) hypertension <Xavi Blackburn JOHNVelia - Last Filed: 07/26/19 11:34> Code(s): I10 - Essential (primary) hypertension <Xavi Blackburn JOHNC - Last Filed: 07/26/19 11:34> Status: Acute <Xavi Blackburn UBALDO - Last Filed: 07/26/19 11:34> Assessment and Plan: * STABLE * CONTINUE METOPROLOL AND VERAPAMIL <Xavi Blackburn UBALDO - Last Filed: 07/26/19 11:34> (6) Pneumonia: Qualifiers: Laterality: bilateral Lung location: lower lobe of lung Pneumonia type: due to unspecified organism Qualified Code(s): J18.9 - Pneumonia, unspecified organism <Xavi Blackburn JOHNC - Last Filed: 07/26/19 11:34> Code(s): J18.9 - Pneumonia, unspecified organism <Xavi Blackburn JAKE-Velia - Last Filed: 07/26/19 11:34> Status: Acute <Xavi Blackburn JOHNVelia - Last Filed: 07/26/19 11:34> Assessment and Plan:
--- NOTE | 2019-07-26 11:16 | PM.DS ---
DS: Diagnosis Admitting Diagnosis Admitting Diagnosis: Nicotine dependence, unspecified, uncomplicated <Yoandymaribeth oJseUBALDO Vang - Last Filed: 07/26/19 11:34> Discharge Diagnosis (1) Tobacco dependence: Code(s): F17.200 - Nicotine dependence, unspecified, uncomplicated <Yoandymaribeth Sunday UBALDO Blackburn - Last Filed: 07/26/19 11:34> Status: Acute <Xavi JoseUBALDO Vang - Last Filed: 07/26/19 11:34> Assessment and Plan: PATIENT EDUCATED ON SMOKING CESSATION. PATIENT REFUSES NICOTINE PATCH <UBALDO Antunez - Last Filed: 07/26/19 11:34> (2) Diabetes mellitus: Qualifiers: Diabetes mellitus complication status: with hyperglycemia Diabetes mellitus remote computer terminal operator insulin use: with [facility] use Diabetes mellitus type: type 2 Qualified Code(s): E11.65 - Type 2 diabetes mellitus with hyperglycemia; Z79.4 - long term care pharmacist (current) use of insulin <UBALDO Antunez - Last Filed: 07/26/19 11:34> Code(s): E11.9 - Type 2 diabetes mellitus without complications <Xavi JoseJOHN VangC - Last Filed: 07/26/19 11:34> Status: Acute <UBALDO Antunez - Last Filed: 07/26/19 11:34> Assessment and Plan: PATIENT WILL CONTINUE HOME MEDICATION CONTINUE DIABETIC DIET. <UBALDO Antunez - Last Filed: 07/26/19 11:34> (3) Diastolic heart failure: Qualifiers: Heart failure chronicity: chronic Qualified Code(s): I50.32 - Chronic diastolic (congestive) heart failure <UBALDO Antunez - Last Filed: 07/26/19 11:34> Code(s): I50.30 - Unspecified diastolic (congestive) heart failure <UBALDO Antunez - Last Filed: 07/26/19 11:34> Status: Acute <UBALDO Antunez - Last Filed: 07/26/19 11:34> Assessment and Plan: PATIENT WILL DICHARGE WITH LASIX 20 MG DAILY <UBALDO Antunez - Last Filed: 07/26/19 11:34> (4) COPD exacerbation: Code(s): J44.1 - Chronic obstructive pulmonary disease with (acute) exacerbation <Xavi Blackburn JOHNVelia - Last Filed: 07/26/19 11:34> Status: Acute <Xavi Blackburn UBALDO - Last Filed: 07/26/19 11:34> Assessment and Plan: PATIENT WILL DISCHARGE WITH 5 DAYS AZITHROMYCIN ,CEFDINIR WITH PREDNISONE CONTINUE HOME NEBULIZER CONTINUE 5 L NASAL CANNULA PATIENT DOES USE SUPPLEMENTARY OXYGEN AT HOME PATIENT IS NON COMPLIANT CHEST X-RAY INDICATE MALE PULMONARY EDEMA AND PNEUMONIA <Xavi Blackburn UBALDO - Last Filed: 07/26/19 11:34> (5) Hypertension: Qualifiers: Hypertension type: essential hypertension Qualified Code(s): I10 - Essential (primary) hypertension <Xavi Blackburn JOHN - Last Filed: 07/26/19 11:34> Code(s): I10 - Essential (primary) hypertension <Xavi Blackburn JOHN - Last Filed: 07/26/19 11:34> Status: Acute <Xavi Blackburn UBALDO - Last Filed: 07/26/19 11:34> Assessment and Plan: STABLE CONTINUE METOPROLOL AND VERAPAMIL <Xavi Blackburn UBALDO - Last Filed: 07/26/19 11:34> (6) Pneumonia: Qualifiers: Laterality: bilateral Lung location: lower lobe of lung Pneumonia type: due to unspecified organism Qualified Code(s): J18.9 - Pneumonia, unspecified organism <Xavi Blackburn UBALDO - Last Filed: 07/26/19 11:34> Code(s): J18.9 - Pneumonia, unspecified organism <Xavi Blackburn JOHNVelia - Last Filed: 07/26/19 11:34> Status: Acute <Xavi Blackburn UBALDO - Last Filed: 07/26/19 11:34> Assessment and Plan: CHEST X-RAY INDICATE MOUTH PULMONARY EDEMA AND PNEUMONIA CONTINUE 5 DAYS ROCEPHIN CEFDINIR AND PREDNISONE PATIENT RECENTLY DISCHARGED FROM [facility] POST VENTILATION X5 DAYS RECEIVED ANTIBIOTICS UNABLE TO SAUSAGE MACHINE OPERATOR ANTIBIOTICS BEFORE THIS ADMISSION . PRELIMINARY READING BLOOD CULTURE NO GROWTH WHITE BLOOD CELLS AT 1
[2019-07-26 11:55] LABS: Glucose Point of Care 200 (65-105)
[2019-07-26 13:34] LABS: Theophylline < 2.5 mg/L (10.0-20.0)
== END 2019-07-26 12:25 | disposition hospice, home (50) ==
LOC: CHSED 20:00 → CHS2ND 07-24 02:29
PROVIDERS: Nurse Practitioner; Admitting Provider Family Medicine; Emergency Provider Family Medicine; PCP Internal Medicine; Visit Provider Family Medicine
DX: J44.1 Chronic obstructive pulmonary disease with (acute) exacerbation (principal); J18.9 Pneumonia, unspecified organism; I50.32 Chronic diastolic (congestive) heart failure; I11.0 Hypertensive heart disease with heart failure; J96.11 Chronic respiratory failure with hypoxia; E11.65 Type 2 diabetes mellitus with hyperglycemia; F17.210 Nicotine dependence, cigarettes, uncomplicated; Z79.4 Long term (current) use of insulin
CPT/HCPCS: 36415; 36600; 71045; 80048; 80053; 80198; 81001; 82805; 83605; 83735; 83880; 84484; 85025; 85027; 86140; 87040; 93005; 94640; 96361; 96365; 96366; 96367; 96372; 96374; 96375; 96376; 97161; 97165; 99285; A9270; G0378; J0456; J0696; J1650; J1815; J1940; J2930; J3475; J7030; J7512